=== PATIENT | male | born 1955 | race Caucasian/White ===

== ENCOUNTER → 2016-12-05 | Outpatient (CLI) | payer BC, OTHER ==
[~2016-12-05] MED LIST: ASCO500T16 PO; BCTROWC TOP; CALC600T9 PO; CALCTAB5 PO; LEVO50TA6 PO; LSX20 PO; LXP10 PO; MDRDP21 PO; MULTTAB5 PO; NRN100 PO; ONDA4TAB46 PO; PRT/40 PO; SDMC1 PO; VNCS150 PO; VNFI IV; [UNRECOGNIZED DRUG - CODE] PO
== END | disposition home or self-care (01) ==
LOC: C.LABSPEC 12:45
PROVIDERS: ATTEND Internal Medicine
DX: A04.7 Enterocolitis due to Clostridium difficile (principal)

== ENCOUNTER → 2016-12-12 | Outpatient (CLI) | payer BC ==
[~2016-12-12] MED LIST changes: -CALCTAB5 PO; -VNCS150 PO
[2016-12-12 18:54] LABS: ALT/SGPT 40 U/L (12-78); BLOOD UREA NITROGEN 13 mg/dl (7-18); BUN/CREATININE RATIO 12.2 (10-20); CALCIUM 8.6 mg/dl (8.5-10.1); CARBON DIOXIDE 27 mmol/L (21-32); CHLORIDE 92 mmol/L (98-107); GLUCOSE 91 mg/dl (70-99); MAGNESIUM 2.1 mg/dl (1.8-2.4); POTASSIUM 3.8 mmol/L (3.5-5.1); SODIUM 129 mmol/L (136-145)
[2016-12-12 19:04] LABS: ALB/GLOB RATIO 0.9 (0.9-2); ALKALINE PHOSPHATASE 80 U/L (45-117); AST/SGOT 27 U/L (15-37); FERRITIN 224.3 ng/ml (8.0-388.0)
[2016-12-16 05:33] LABS: IGA SERUM 418 mg/dL (81-463); TIS TRANS IGA 1 U/mL (<4)
== END | disposition home or self-care (01) ==
LOC: C.LAB 17:27
PROVIDERS: ATTEND Internal Medicine
DX: A04.7 Enterocolitis due to Clostridium difficile (principal); F41.9 Anxiety disorder, unspecified; E83.42 Hypomagnesemia; K50.90 Crohn's disease, unspecified, without complications; M85.80 Other specified disorders of bone density and structure, unspecified site

== ENCOUNTER → 2016-12-14 | Outpatient (CLI) | payer BC ==
--- NOTE | 2016-12-14 11:36 | DIAGNOSTIC IMAGING REPORT ---
CHEST 2 VIEWS ROUTINE HISTORY: Fever. COMPARISON: Chest 11/13/2016. FINDINGS: The lungs are clear. Cardiac silhouette is normal in size. No pleural effusions. No pneumothorax. IMPRESSION: No acute process. Electronically signed by: Maurisio Randall M.D. 12/14/2016 11:34 AM Dictated Date/Time: 12/14/2016 11:26 AM
== END | disposition home or self-care (01) ==
LOC: C.RAD1850 11:10
PROVIDERS: ATTEND Internal Medicine
DX: R50.9 Fever, unspecified (principal)

== ENCOUNTER → 2017-01-03 | Outpatient (CLI) | payer BC ==
[2017-01-03 17:31] LABS: BASO % 0.2 %; BASO ABS # 0.01 K/uL (0-0.2); COMPLETE YES; EOS % 3.1 %; HEMATOCRIT 35.6 % (42-52); IG% 0.2 %; LYMPH ABS # 1.52 K/uL (1.2-3.4); MEAN CELL VOLUME 82.6 fL (80-100); MEAN CORPUSCULAR HGB CONC 35.1 g/dl (32-36); MEAN PLATELET VOLUME 9.3 fL (7.4-10.4); MONO % 11.6 %; NEUT % 55.9 %; PLATELET COUNT 158 K/uL (130-400); RED BLOOD COUNT 4.31 M/uL (4.7-6.1); WHITE BLOOD COUNT 5.24 K/uL (4.8-10.8)
[2017-01-03 17:56] LABS: BLOOD UREA NITROGEN 16 mg/dl (7-18); BUN/CREATININE RATIO 16.2 (10-20); CALCIUM 8.7 mg/dl (8.5-10.1); CARBON DIOXIDE 28 mmol/L (21-32); CHLORIDE 101 mmol/L (98-107); CREATININE 0.97 mg/dl (0.60-1.40); GLUCOSE 89 mg/dl (70-99); SODIUM 138 mmol/L (136-145)
== END | disposition home or self-care (01) ==
LOC: C.LAB 16:38
PROVIDERS: ATTEND Internal Medicine
DX: R50.9 Fever, unspecified (principal)

== ENCOUNTER → 2017-01-18 | Day surgery (SDC) | payer BC ==
[2016-12-05 13:45] VITALS: Ht 175.3 cm; Wt 67.7 kg
[~2017-01-18] VITALS: Ht 175.3 cm; Wt 67.7 kg
[~2017-01-18] MED LIST changes: +FENTANYL CITRATE INJ 50 MCG/1 ML 2 ML VIAL ONE; +LIDOCAINE HCL 2% 2 ML VIAL (20MG/ML) ONE; +NALOXONE HCL 0.4 MG/1 ML VIAL/CARP ONE; +PROPOFOL IV EMULSION 10 MG/ML 20 ML VIAL IV ONE
--- NOTE | 2017-01-18 11:48 | Endo History and Physical ---
History & Physical Date of Service: Jan 18, 2017. Chief Complaint: dysphagia Referring Physician: Dr Sol History of Present Illness 61 yo CM who presents for EGD secondary to dysphagia Past Medical History Gastrointestinal Disorder, High Cholesterol Past Surgical History Hx Cardiac Surgery: No Hx Internal Defibrillator: No Hx Pacemaker: No Hx Abdominal Surgery: Yes (APPY, PARTIAL COLECTOMY WITH ILEOSTOMY, ILEOSTOMY REVERSAL) Hx of Implantable Prosthesis: No Hx Post-Op Nausea and Vomiting: No Hx Cancer Surgery: No Hx Thoracic Surgery: No Hx Orthopedic: No Hx Urinary Tract Surgery: No Family History IBD Social History Smoking Status: Never Smoker Hx Substance Use: No Hx Alcohol Use: Yes (1 DRINK/DAY) Allergies Coded Allergies: Metronidazole (Verified Allergy, Unknown, NUMBNESS - IV FORMULATION, ) Zolpidem (Verified Allergy, Unknown, UNKNOWN, 12/05/16) CAUSED HALLUCINATIONS Pork (Verified Adverse Reaction, Intermediate, GI SYMPTOMS, 12/05/16) Aspirin (Verified Adverse Reaction, Mild, Stomach pain, 12/05/16) Pork (Porcine) Protein (Unverified Adverse Reaction, Mild, GI SYMPTOMS, 10/11) Ibuprofen (Verified Adverse Reaction, Unknown, GI UPSET, 12/05/16) Current Medications Reported Home Medications Medications Dose Route/Sig Max Daily Dose Days Date Category Zofran (Ondansetron HCl) 4 Mg Tab 4 Mg PO TID PRN 12/05/16 Reported Calcium + D (Calcium Carbonate-Vitamin D) 1 Tab Tab 1 Tab PO QAM 12/05/16 Reported Escitalopram Oxalate 10 Mg Tab 10 Mg PO HS 11/13/16 Reported Slow Iron (Ferrous Sulfate Dried) 160 Mg Tab 160 Mg PO QPM 10/12/16 Reported Ascorbic Acid 500 Mg Tab 500 Mg PO NOON 04/16/16 Reported Centrum (Multiple Vitamins W/ Minerals) 1 Tab Tab 1 Tab PO NOON 04/16/16 Reported Vital Signs Weight (Kilograms): 67.73 Height (Feet): 5 Height (Inches): 9 Date Time Temp Pulse Resp B/P Pulse Ox O2 Delivery O2 Flow Rate FiO2 01/18/17 11:25 36.7 98 20 130/60 99 Room Air Physical Exam General Appearance: WD/WN, no apparent distress Respiratory/Chest: Auscultation: breath sounds normal Cardiovascular: Heart Auscultation: RRR Abdomen: Bowel Sounds: normal Inspection & Palpation: soft, non-distended, no tenderness, guarding & rebound Assessment and Plan Assessment: 61 yo CM who presents for EGD secondary to dysphagia Plan: Proceed with EGD.
--- NOTE | 2017-01-18 13:06 | Discharge Instructions ---
Endoscopy Patient Instructions Date / Procedure(s) Performed Jan 18, 2017. EGD Allergy Information Coded Allergies: Metronidazole (Verified Allergy, Unknown, NUMBNESS - IV FORMULATION, ) Zolpidem (Verified Allergy, Unknown, UNKNOWN, 12/05/16) CAUSED HALLUCINATIONS Pork (Verified Adverse Reaction, Intermediate, GI SYMPTOMS, 12/05/16) Aspirin (Verified Adverse Reaction, Mild, Stomach pain, 12/05/16) Pork (Porcine) Protein (Unverified Adverse Reaction, Mild, GI SYMPTOMS, 10/11) Ibuprofen (Verified Adverse Reaction, Unknown, GI UPSET, 12/05/16) Discharge Date / Findings Jan 18, 2017. Esophageal stenosis s/p dilation to 16.5 mm Medication Instructions 1) OK to resume all medications today as prescribed 2) Start Protonix 40mg by mouth each morning 1/2 hour prior to breakfast. Reported Home Medications Medications Dose Route/Sig Max Daily Dose Days Date Category Zofran (Ondansetron HCl) 4 Mg Tab 4 Mg PO TID PRN 12/05/16 Reported Calcium + D (Calcium Carbonate-Vitamin D) 1 Tab Tab 1 Tab PO QAM 12/05/16 Reported Escitalopram Oxalate 10 Mg Tab 10 Mg PO HS 11/13/16 Reported Slow Iron (Ferrous Sulfate Dried) 160 Mg Tab 160 Mg PO QPM 10/12/16 Reported Ascorbic Acid 500 Mg Tab 500 Mg PO NOON 04/16/16 Reported Centrum (Multiple Vitamins W/ Minerals) 1 Tab Tab 1 Tab PO NOON 04/16/16 Reported Provider Instructions Activity Restrictions - No exercising or heavy lifting for 24 hours. - Do not drink alcohol the day of the procedure. - Do not drive a car or operate machinery until the day after the procedure. - Do not make any important decisions or sign important papers in 24 hours after the procedure. Following Day: - Return to full activity which may include returning to work/school. Diet Start your diet with liquids and light foods (jello, soup, juice, toast). Then eat your usual diet if not nauseated. Treatment For Common After Affects For mild abdominal pain, bloating, or excessive gas: - Rest - Eat lightly - Lie on right side Follow-Up Information Follow-up with Dr Sol as scheduled Anesthesia Information What You Should Know You have had a procedure that required some medicine to reduce anxiety and discomfort. This treatment is called moderate sedation. After receiving the treatment, you may be sleepy, but you will be able to breathe on your own. The effects of the treatment may last for several hours. Follow these instructions along with Activity/Diet recommendations noted above: * Do NOT do anything where dizziness or clumsiness would be dangerous. * Rest quietly at home today, then you can be up and about tomorrow. * Have a responsible person stay with you the rest of today. * You may have had an I.V. today. If so, you may take the dressing off later today. Recommendations Call your doctor if: * Trouble breathing * Continuous vomiting for more than 24 hours * Temperature above 101 degrees * Severe abdominal pain or bloating * Pain not relieved by pain medicine ordered * There is increased drainage or redness from any incision * A large amount of rectal bleeding greater than 2-3 tablespoons. (If you had a polyp/s removed or have hemorrhoids, a small amount of blood - from the rectum is to be expected.) * You have any unanswered questions or concerns. IN THE EVENT OF A SERIOUS EMERGENCY, GO TO THE NEAREST EMERGENCY ROOM Your discharge instructions were prepared by provider Niko Martin. Patient Instructions Signature Page Ha Huitron Patient (or Guardian) Signature/Date: I have read and understand the instructions given to me by my caregivers. Caregiver/RN/Doctor Signature/Date: The above-named patient and/or guardian has received patient instructions on this date. + Original Patient Signature Page (only) stays with chart. Please make copy for patient.
--- NOTE | 2017-01-18 13:10 | GI REPORT ---
Procedure Date: 01/18/2017 12:26 PM Procedure: Upper GI endoscopy Indications: Dysphagia Medicines: Monitored Anesthesia Care Complications: No immediate complications. Estimated Blood Loss: Estimated blood loss: none. Procedure: Pre-Anesthesia Assessment: - Prior to the procedure, a History and Physical was performed, and patient medications and allergies were reviewed. The patient's tolerance of previous anesthesia was also reviewed. The risks and benefits of the procedure and the sedation options and risks were discussed with the patient. All questions were answered, and informed consent was obtained. Prior Anticoagulants: The patient has taken no previous anticoagulant or antiplatelet agents. ASA Grade Assessment: II - A patient with mild systemic disease. After reviewing the risks and benefits, the patient was deemed in satisfactory condition to undergo the procedure. After obtaining informed consent, the endoscope was passed under direct vision. Throughout the procedure, the patient's blood pressure, pulse, and oxygen saturations were monitored continuously. The scope was introduced through the mouth, and advanced to the second part of duodenum. The upper GI endoscopy was accomplished without difficulty. The patient tolerated the procedure well. Findings: One moderate benign-appearing, intrinsic stenosis was found. This measured 1.2 cm (inner diameter) x 1 cm (in length) and was traversed. A TTS dilator was passed through the scope. Dilation with a 15-16.5-18 mm balloon (to a maximum balloon size of 16.5 mm) dilator was performed. The dilation site was examined and showed moderate improvement in luminal narrowing. The stomach was normal. The examined duodenum was normal. Impression: - Benign-appearing esophageal stenosis. Dilated. - Normal stomach. - Normal examined duodenum. - No specimens collected. Recommendation: - Resume previous diet. - Continue present medications. - Repeat the upper endoscopy PRN for retreatment. - Return to primary care physician as previously scheduled. Niko Martin DO 01/18/2017 1:09:53 PM This report has been signed electronically. Note Initiated On: 01/18/2017 12:26 PM I attest to the content of the Intraoperative Record and orders documented therein, exceptions below
[2017-01-18 13:30] VITALS: BP 109/54; PULSE 81; O2SAT 98
--- NOTE | 2017-01-18 15:18 | Anesthesiology Progress Note ---
Anesthesia Post Op Note Date & Time Jan 18, 2017 at 15:18 Vital Signs Pain Intensity: 0 Vital Signs Past 12 Hours Date Time Temp Pulse Resp B/P Pulse Ox O2 Delivery O2 Flow Rate FiO2 01/18/17 13:30 81 16 109/54 98 Room Air 01/18/17 13:15 98 16 114/58 98 Room Air 01/18/17 13:00 98 16 119/60 98 Room Air 01/18/17 11:25 36.7 98 20 130/60 99 Room Air Notes Mental Status: alert / awake / arousable, participated in evaluation Pt Amnestic to Procedure: Yes Nausea / Vomiting: adequately controlled Pain: adequately controlled Airway Patency, RR, SpO2: stable & adequate BP & HR: stable & adequate Hydration State: stable & adequate Anesthetic Complications: no major complications apparent
== END | disposition home or self-care (01) ==
LOC: C.GI 10:51
PROVIDERS: ATTEND Internal Medicine
DX: K22.2 Esophageal obstruction (principal); E78.5 Hyperlipidemia, unspecified; Z90.49 Acquired absence of other specified parts of digestive tract; Z93.2 Ileostomy status; Z83.79 Family history of other diseases of the digestive system; Z88.5 Allergy status to narcotic agent; Z88.8 Allergy status to other drugs, medicaments and biological substances

== ENCOUNTER → 2017-01-29 | Outpatient (CLI) | payer BC ==
[~2017-01-29] MED LIST changes: -FENTANYL CITRATE INJ 50 MCG/1 ML 2 ML VIAL ONE; -LIDOCAINE HCL 2% 2 ML VIAL (20MG/ML) ONE; -NALOXONE HCL 0.4 MG/1 ML VIAL/CARP ONE; -PROPOFOL IV EMULSION 10 MG/ML 20 ML VIAL IV ONE
--- NOTE | 2017-01-29 15:29 | DIAGNOSTIC IMAGING REPORT ---
CT SCAN OF THE CHEST WITHOUT IV CONTRAST CLINICAL HISTORY: Pulmonary nodule follow-up. COMPARISON STUDY: Chest CT dated 12/06/2015. Chest x-ray dated 11/16/2015 and 11/23/2015. Abdominal CT dated 11/16/2015. TECHNIQUE: CT scan of the thorax was performed from the thoracic inlet to the upper abdomen. Images are reviewed in the axial, sagittal, and coronal planes. IV contrast was not administered for this examination. CT DOSE: 236.14 mGycm FINDINGS: Thyroid: Imaged portions of the thyroid gland are normal in size and attenuation. Thoracic aorta: There are scattered foci of atherosclerotic calcification in the thoracic aorta, which is normal in caliber and demonstrates standard 3-vessel arch anatomy. Heart: The heart is normal in size and without pericardial effusion. There are coronary artery calcifications. There is diminished attenuation of the cardiac blood pool as compared to the myocardium suggesting anemia. The pulmonary trunk is normal in caliber. Lungs and pleural spaces: There is mild apical scarring. No airspace consolidation or pleural effusion is seen. Scattered calcified granulomas are identified. 2 mm nodules at the left lung base seen on 12/06/2015 are no longer identified and were likely on an inflammatory basis. A 2 mm right upper lobe nodule is seen on image #[id number]. A 2 mm right middle lobe nodule is seen on image #[id number]. No new pulmonary nodules are identified. The trachea and central airways are clear. Mediastinum: There is no mediastinal lymphadenopathy. [place]: Clear. Axillae: There is no axillary lymphadenopathy. Upper abdomen: Partially visualized upper abdominal viscera is within normal limits. Skeletal structures: The skeletal structures are osteopenic. Mild degenerative changes are noted throughout the thoracic spine. There are healed right-sided rib fractures. No lytic or blastic bony lesions are seen. IMPRESSION: 1. There is no airspace consolidation or pleural effusion. 2. Scattered low suspicion pulmonary nodules are again seen. At least 2 of the nodules at the left lung base seen on 12/06/2015 have resolved end were likely on an inflammatory basis. 1 additional precautionary follow-up examination is recommended in one years time to document 2 years of stability. Electronically signed by: Donald Lewis M.D. 01/29/2017 3:28 PM Dictated Date/Time: 01/29/2017 3:11 PM
== END | disposition home or self-care (01) ==
LOC: C.CTS 14:53
PROVIDERS: ATTEND Internal Medicine
DX: R91.1 Solitary pulmonary nodule (principal)

== ENCOUNTER 2017-04-02 17:55 | Emergency (ER) | payer BC ==
[~2017-04-02] VITALS: Ht 175.3 cm; Wt 70.0 kg
[~2017-04-02 17:55] MED LIST changes: -ASCO500T16 PO; -BCTROWC TOP; -CALC600T9 PO; -LEVO50TA6 PO; -LSX20 PO; -LXP10 PO; -MDRDP21 PO; -MULTTAB5 PO; -NRN100 PO; -ONDA4TAB46 PO; -PRT/40 PO; -SDMC1 PO; -VNFI IV
[2017-04-02 17:57] VITALS: TEMP 36.5; Ht 175.3 cm; Wt 70.0 kg
[2017-04-02] MEDS ORDERED: SODIUM CHLORIDE 0.9% 1000ML 1,000 ML IV ONE (18:45)
[2017-04-02 19:18] LABS: BASO % 0.2 %; BASO ABS # 0.01 K/uL (0-0.2); COMPLETE YES; EOS % 2.5 %; HEMATOCRIT 33.4 % (42-52); IG% 0.2 %; LYMPH % 28.3 %; LYMPH ABS # 1.24 K/uL (1.2-3.4); MEAN CELL VOLUME 82.9 fL (80-100); MEAN CORPUSCULAR HEMOGLOBIN 29.3 pg (25-34); MEAN CORPUSCULAR HGB CONC 35.3 g/dl (32-36); MEAN PLATELET VOLUME 8.7 fL (7.4-10.4); MONO % 13.9 %; NEUT % 54.9 %; PLATELET COUNT 160 K/uL (130-400); RED BLOOD COUNT 4.03 M/uL (4.7-6.1); WHITE BLOOD COUNT 4.38 K/uL (4.8-10.8)
[2017-04-02 19:31] LABS: URINE APPEARANCE CLEAR (CLEAR); URINE BILIRUBIN NEG (NEG); URINE COLOR YELLOW; URINE EPITHELIAL CELL AUTO 0-5 /lpf (0-5); URINE NITRITE NEG (NEG); URINE SPECIFIC GRAVITY 1.021 (1.000-1.030); UROBILINOGEN NEG (NEG)
[2017-04-02 19:37] LABS: BUN/CREATININE RATIO 18.6 (10-20); CALCIUM 8.7 mg/dl (8.5-10.1); CREATININE 0.82 mg/dl (0.60-1.40); MAGNESIUM 2.2 mg/dl (1.8-2.4); POTASSIUM 4.1 mmol/L (3.5-5.1)
[2017-04-02 19:38] LABS: MANUAL MICROSCOPIC REQUIRED? NO; REVIEW REQ? NO
[2017-04-02 19:46] LABS: PHOSPHORUS 3.5 mg/dl (2.5-4.9); THYROID STIMULATING HORMONE 1.84 uIu/ml (0.300-4.500)
[2017-04-02 20:45] VITALS: BP 104/57; PULSE 79; O2SAT 98
--- NOTE | 2017-04-03 00:12 | EMERGENCY ROOM VISIT NOTE ---
ED Visit Note First contact with patient: 18:13 Chief Complaint: Involuntary muscle contractions and feeling tired. History of Present Illness: Mr. Huitron is a 61-year-old white male who ambulates into the ED accompanied by his complaining of involuntary muscle contractions of the right lower leg and abdomen and feeling tired and fatigued for the last couple of weeks. Historically patient reports he has a history of hyponatremia and Crohn's disease. Patient reports over the last 2-3 weeks he reports that he has been getting muscle cramping sensations that start in the anterior aspect to the mid/lower right thigh and slowly moves up to the lower abdomen. After the initial cramping he reports he has pain in this area for approximately 10 minutes and then the cramping and the pain resolved. His reports that when he has this cramping sensation at night he shakes in bed but does not wake up. Currently he is pain-free and is not having any cramping. He has not identified any aggravating or alleviating factors related to the cramping. He has not taken any medications for cramping prior to arrival at the hospital. Associated with his cramping he reports he has been having increasing fatigue and over the last 2 days it has been the most severe and he reports he slept most of the last 2 days. He denies fevers, chills, sweats, skin eruptions, skin color changes, headache, dizziness, lightheadedness, upper respiratory tract symptoms, cough, wheezing, shortness of breath, chest pain, palpitations, orthopnea, dependent edema, previous clots, claudication, cramping, recent surgery/inactivity/extended travel, decreased appetite, weight loss, nausea/vomiting, diarrhea, constipation , rectal bleeding, black/tarry stools, urinary symptoms, hematuria, extremity weakness/numbness/tingling. Review of Systems: As noted above in history of present illness. All body systems were reviewed and found to be negative as noted above. Past Medical History: GERD, kidney stones, rectal abscess, status post ileectomy and appendectomy. Current Medications: Medications Dose Route/Sig Max Daily Dose Days Date Category Levothyroxine Sodium 50 Mcg Tab 50 Mcg PO DAILY 04/02/17 Reported Pantoprazole Sodium (Pantoprazole) 40 Mg Tab 40 Mg PO DAILY 04/02/17 Reported Zofran (Ondansetron HCl) 4 Mg Tab 4 Mg PO TID PRN 12/05/16 Reported Calcium + D (Calcium Carbonate-Vitamin D) 1 Tab Tab 1 Tab PO QAM 12/05/16 Reported Escitalopram Oxalate 10 Mg Tab 10 Mg PO HS 11/13/16 Reported Slow Iron (Ferrous Sulfate Dried) 160 Mg Tab 160 Mg PO QPM 10/12/16 Reported Ascorbic Acid 500 Mg Tab 500 Mg PO NOON 04/16/16 Reported Centrum (Multiple Vitamins W/ Minerals) 1 Tab Tab 1 Tab PO NOON 04/16/16 Reported Allergies to Medications: Aspirin, ibuprofen, metronidazole, zolpidem. Social History: Patient is not currently employed; he lives with his and feels safe in his home environment; he denies tobacco use and admits to social alcohol use. Physical Examination: Vital Signs: Date Time Temp Pulse Resp B/P Pulse Ox O2 Delivery O2 Flow Rate FiO2 04/02/17 20:45 79 18 104/57 98 04/02/17 19:57 84 18 107/46 100 Room Air 04/02/17 17:57 36.5 96 16 104/64 97 Room Air GENERAL: 61-year-old male in no acute distress, tired appearing, nontoxic- appearing, afebrile and hemodynamically stable. NEUROLOGICAL: Awake, alert and oriented to person, place and time. Answering questions appropriately and following commands. Normal gait. Good hand eye coordination. No focal motor or sensory deficits. SKIN: Warm, dry and pink. No soft tissue eruptions or trauma noted. HEENT: Atraumatic and normocephalic. PERRLA. Sclera white and conjunctiva pink. No drainage from naris. Oral cavity moist and pink. Pharynx is nonerythematous or edematous. Speech normal. No lymphadenopathy. Trachea midline. No jugular venous distention. BACK: No tenderness over the bony spine. No CVA tenderness. THORAX: Lungs sounds are clear to auscultation and equal bilaterally with symmetrical chest wall. No wheezing, rales or rhonchi. No crepitus, tenderness , subcutaneous air or deformities noted. HEART: Regular rate and rhythm. No gallops, rubs or murmurs are appreciated. ABDOMEN: Flat and soft with mild tenderness over his ileostomy site on the right mid abdomen. Positive bowel sounds in all quadrants. No guarding, rigidity or organomegaly. EXTREMITIES: Moves all extremities well on command and with purpose. All distal neurovascular statuses are intact and equal bilaterally. No calf tenderness or cords. ED Course: Patient is assessed as noted above. Laboratory Testing: Test 04/02/17 18:55 04/02/17 19:00 04/02/17 19:10 Range/Units White Blood Count 4.38 4.8-10.8 K/uL Red Blood Count 4.03 4.7-6.1 M/uL Hemoglobin 11.8 14.0-18.0 g/dL Hematocrit 33.4 42-52 % Mean Corpuscular Volume 82.9 80-100 fL Mean Corpuscular Hemoglobin 29.3 25-34 pg Mean Corpuscular Hemoglobin Concent 35.3 32-36 g/dl Platelet Count 160 130-400 K/uL Mean Platelet Volume 8.7 7.4-10.4 fL Neutrophils (%) (Auto) 54.9 % Lymphocytes (%) (Auto) 28.3 % Monocytes (%) (Auto) 13.9 % Eosinophils (%) (Auto) 2.5 % Basophils (%) (Auto) 0.2 % Neutrophils # (Auto) 2.40 1.4-6.5 K/uL Lymphocytes # (Auto) 1.24 1.2-3.4 K/uL Monocytes # (Auto) 0.61 0.11-0.59 K/uL Eosinophils # (Auto) 0.11 0-0.5 K/uL Basophils # (Auto) 0.01 0-0.2 K/uL RDW Standard Deviation 40.0 36.4-46.3 fL RDW Coefficient of Variation 13.1 11.5-14.5 % Immature Granulocyte % (Auto) 0.2 % Immature Granulocyte # (Auto) 0.01 0.00-0.02 K/uL Sodium Level 133 136-145 mmol/L Potassium Level 4.1 3.5-5.1 mmol/L Chloride Level 99 98-107 mmol/L Carbon Dioxide Level 30 21-32 mmol/L Anion Gap 4.0 3-11 mmol/L Blood Urea Nitrogen 15 7-18 mg/dl Creatinine 0.82 0.60-1.40 mg/dl Est Creatinine Clear Calc Drug Dose 93.7 ml/min Estimated GFR () 110.6 Estimated GFR (Non- 95.4 BUN/Creatinine Ratio 18.6 10-20 Random Glucose 77 70-99 mg/dl Calcium Level 8.7 8.5-10.1 mg/dl Phosphorus Level 3.5 2.5-4.9 mg/dl Magnesium Level 2.2 1.8-2.4 mg/dl Total Bilirubin 1.0 0.2-1 mg/dl Direct Bilirubin 0.2 0-0.2 mg/dl Aspartate Amino Transf (AST/SGOT) 28 15-37 U/L Alanine Aminotransferase (ALT/SGPT) 34 12-78 U/L Alkaline Phosphatase 56 45-117 U/L Total Protein 6.9 6.4-8.2 gm/dl Albumin 3.6 3.4-5.0 gm/dl Lipase 271 73-393 U/L Thyroid Stimulating Hormone (TSH) 1.840 0.300-4.500 uIu/ml Monoscreen NEG NEG Bedside Troponin I 0.000 0-0.045 ng/ml Urine Color YELLOW Urine Appearance CLEAR CLEAR Urine pH 6.0 4.5-7.5 Urine Specific Holcomb 1.021 1.000-1.030 Urine Protein 2+ NEG Urine Glucose (UA) NEG NEG Urine Ketones NEG NEG Urine Occult Blood 2+ NEG Urine Nitrite NEG NEG Urine Bilirubin NEG NEG Urine Urobilinogen NEG NEG Urine Leukocyte Esterase NEG NEG Urine WBC (Auto) 1-5 0-5 /hpf Urine RBC (Auto) 0-4 0-4 /hpf Urine Hyaline Casts (Auto) 0 0-5 /lpf Urine Epithelial Cells (Auto) 0-5 0-5 /lpf Urine Bacteria (Auto) NEG NEG EKG: Was read by myself and reviewed with Dr. Vo; shows normal sinus rhythm with ventricular rate of 78 bpm. Normal axis, intervals and complexes. No acute ST changes indicating ischemia, injury or infarction. This was compared to previous from October 2015 and no acute changes were noted. Patient was hydrated with normal saline. Patient was reassessed multiple times during his stay in the emergency department. Patient's case was reviewed with Dr. Vo; we agreed on diagnostic approach, treatment, disposition and plan. Patient was educated about tonight's findings and instructed on his treatment plan; he verbalizes understanding and agreement with this plan. Clinical Impression: Muscle cramping. Fatigued. Decision-Making: Initially my differential diagnosis I considered musculoskeletal disorder, mononucleosis, electrolyte abnormality, thyroid dysfunction, acute coronary syndrome and other causes. Disposition: Patient was reassessed prior to departure and subsequently reported he was pain-free but he was still feeling tired and fatigued. Plan: Patient was encouraged to continue his current prescriptions and therapies as prescribed by his PCP. Patient was encouraged to contact his PCP tomorrow morning and inform them of today's ED visit and to keep his upcoming appointment with his PCP. Patient was encouraged return the ED for worsening cramping, worsening fatigue, fevers or any new/concerning symptoms.
[2017-08-02] MEDS ORDERED: ONDA4TAB46 PO (13:45)
[2017-08-02] MEDS ORDERED: CALC600T9 PO (13:45)
[2017-08-02] MEDS ORDERED: PANT40TA2 PO (18:31)
[2017-08-06] MEDS ORDERED: SDMC1 PO (12:09)
[2017-08-06] MEDS ORDERED: VNFI IV (12:09)
[2017-08-06] MEDS ORDERED: LSX20 PO (12:09)
== END 2017-04-02 20:45 | disposition home or self-care (01) ==
LOC: C.EDB 17:56 → C.EDC 20:45
DX: M62.838 Other muscle spasm (principal); R53.83 Other fatigue; K50.90 Crohn's disease, unspecified, without complications; K21.9 Gastro-esophageal reflux disease without esophagitis; Z87.442 Personal history of urinary calculi; Z79.899 Other long term (current) drug therapy

== ENCOUNTER → 2017-04-24 | Outpatient (CLI) | payer BC ==
[~2017-04-24] MED LIST changes: +ASCO500T16 PO; +BCTROWC TOP; +CALC600T9 PO; +LEVO50TA6 PO; +LSX20 PO; +LXP10 PO; +MDRDP21 PO; +MULTTAB5 PO; +NRN100 PO; +ONDA4TAB46 PO; +PANT40TA2 PO; +SDMC1 PO; +VNFI IV
== END | disposition home or self-care (01) ==
LOC: C.LAB1850 15:45
PROVIDERS: ATTEND Physician Assistant
DX: G25.81 Restless legs syndrome (principal)

== ENCOUNTER → 2017-05-14 | Outpatient (CLI) | payer BC ==
[2017-05-14 12:32] LABS: BASO % 0.4 %; BASO ABS # 0.02 K/uL (0-0.2); COMPLETE YES; EOS % 3.9 %; LYMPH % 21.2 %; LYMPH ABS # 0.98 K/uL (1.2-3.4); MEAN CELL VOLUME 82.2 fL (80-100); MEAN CORPUSCULAR HEMOGLOBIN 29.4 pg (25-34); MEAN CORPUSCULAR HGB CONC 35.8 g/dl (32-36); MEAN PLATELET VOLUME 8.7 fL (7.4-10.4); MONO % 15.6 %; NEUT % 58.9 %; PLATELET COUNT 159 K/uL (130-400); RED BLOOD COUNT 3.77 M/uL (4.7-6.1); WHITE BLOOD COUNT 4.62 K/uL (4.8-10.8)
[2017-05-14 12:56] LABS: BLOOD UREA NITROGEN 13 mg/dl (7-18); BUN/CREATININE RATIO 17.2 (10-20); CALCIUM 8.6 mg/dl (8.5-10.1); CARBON DIOXIDE 28 mmol/L (21-32); CHLORIDE 96 mmol/L (98-107); CREATININE 0.77 mg/dl (0.60-1.40); GLUCOSE 100 mg/dl (70-99); POTASSIUM 4.5 mmol/L (3.5-5.1); SODIUM 130 mmol/L (136-145)
[2017-05-14 14:13] LABS: LYME DISEASE AB IGG NEG (NEG)
[2017-05-14 14:23] LABS: LYME DISEASE AB IGM NEG (NEG)
== END | disposition home or self-care (01) ==
LOC: C.LAB1850 10:56
PROVIDERS: ATTEND Physician Assistant
DX: D64.9 Anemia, unspecified (principal); E87.1 Hypo-osmolality and hyponatremia; E03.9 Hypothyroidism, unspecified; M25.50 Pain in unspecified joint

== ENCOUNTER 2017-05-15 21:28 | Emergency (ER) | payer BC ==
[~2017-05-15] VITALS: Ht 175.3 cm; Wt 71.8 kg
[~2017-05-15 21:28] MED LIST changes: -ASCO500T16 PO; -BCTROWC TOP; -CALC600T9 PO; -LEVO50TA6 PO; -LSX20 PO; -LXP10 PO; -MDRDP21 PO; -MULTTAB5 PO; -NRN100 PO; -ONDA4TAB46 PO; -PANT40TA2 PO; -SDMC1 PO; -VNFI IV
[2017-05-15 21:41] VITALS: TEMP 36.7; Ht 175.3 cm; Wt 71.8 kg
[2017-05-15] MEDS ORDERED: SODIUM CHLORIDE 0.9% 1000ML 1,000 ML IV STA (21:58)
[2017-05-15] MEDS ORDERED: SODIUM CHLORIDE 0.9% 1000ML 500 ML IV STA (21:58)
[2017-05-15 22:33] LABS: COMPLETE YES; HEMATOCRIT 33.3 % (42-52); LYMPH % 14.4 %; LYMPH ABS # 0.34 K/uL (1.2-3.4); MEAN CELL VOLUME 80.8 fL (80-100); MEAN CORPUSCULAR HEMOGLOBIN 28.9 pg (25-34); MEAN CORPUSCULAR HGB CONC 35.7 g/dl (32-36); MEAN PLATELET VOLUME 8.6 fL (7.4-10.4); MONO % 2.5 %; NEUT % 83.1 %; PLATELET COUNT 172 K/uL (130-400); RED BLOOD COUNT 4.12 M/uL (4.7-6.1); WHITE BLOOD COUNT 2.36 K/uL (4.8-10.8)
[2017-05-15 22:39] LABS: URINE APPEARANCE CLEAR (CLEAR); URINE BILIRUBIN NEG (NEG); URINE COLOR YELLOW; URINE NITRITE NEG (NEG); URINE PH 5.5 (4.5-7.5); UROBILINOGEN NEG (NEG); ZZUR CULT IF INDIC CLEAN CATCH NO
[2017-05-15 22:40] LABS: MANUAL MICROSCOPIC REQUIRED? NO; REVIEW REQ? NO
[2017-05-15 22:48] LABS: BUN/CREATININE RATIO 12.6 (10-20); CREATININE 1.2 mg/dl (0.60-1.40); POTASSIUM 4.3 mmol/L (3.5-5.1)
[2017-05-15 22:49] LABS: CALCIUM 8.8 mg/dl (8.5-10.1)
[2017-05-15] MEDS ORDERED: SODIUM CHLORIDE 0.9% 500ML 500 ML IV STA (22:56)
--- NOTE | 2017-05-15 23:03 | DIAGNOSTIC IMAGING REPORT ---
CT SCAN OF THE ABDOMEN AND PELVIS WITHOUT CONTRAST CLINICAL HISTORY: Flank pain hematuria COMPARISON STUDY: 11/16/2015 TECHNIQUE: CT scan of the abdomen and pelvis was performed from the lung bases to the proximal femurs. Images are reviewed in the axial, sagittal, and coronal planes. IV contrast was not administered for this examination. CT DOSE: 502.72 mGy.cm FINDINGS: Lower chest: There is a small left pleural effusion. There are left basilar atelectatic changes. Liver: The unenhanced liver is normal in size, contour, and attenuation. There is no intrahepatic biliary ductal dilatation. Gallbladder: Cholelithiasis Spleen: Normal in size and attenuation. Pancreas: Unremarkable. Adrenal glands: Unremarkable. Kidneys: No renal calculi are visualized. There is no significant hydronephrosis. No ureteral or bladder calculi are visualized. Bowel: There are no transition zones indicate bowel obstruction. There is sigmoid diverticulosis. There are no acute peridiverticular inflammatory changes. There are postsurgical changes of a right hemicolectomy. Peritoneum: There is trace free pelvic fluid. No free intraperitoneal air is visualized. Vasculature: The abdominal aorta is normal in course and caliber. Adenopathy: There are a few minimally prominent mesenteric lymph nodes, similar to the preceding study. Pelvic viscera: The bladder, and pelvic viscera are unremarkable. Skeletal structures: No destructive osseous lesions are seen. IMPRESSION: 1. Small left pleural effusion 2. Postsurgical changes right hemicolectomy 3. Cholelithiasis 4. No evidence of bowel obstruction. No evidence of free air 5. No renal, ureteral, or bladder calculi identified 6. Mesenteric lymph nodes at the upper limits of normal in size. These remain unchanged from October 2015 Electronically signed by: Jonathon Salazar M.D. 05/15/2017 11:02 PM Dictated Date/Time: 05/15/2017 10:57 PM
[2017-05-15] MEDS ORDERED: MDRDP21 PO (23:18)
[2017-05-15] MEDS ORDERED: NRN100 PO (23:18)
[2017-05-16 00:37] VITALS: BP 125/68; PULSE 89; O2SAT 98
--- NOTE | 2017-05-16 01:18 | EMERGENCY ROOM VISIT NOTE ---
History Report prepared by Esdras: Cuauhtemoc Richardson Under the Supervision of: Dr. Donald Denny M.D. First contact with patient: 21:49 Chief Complaint: URINARY SYMPTOMS Stated Complaint: URINARY FREQUENCY Nursing Triage Summary: Pt seen by PCP Saturday for sciatic pain. Pt ook first dose of Prednisone, felt dizzy all day. "Now I am urinating about every 10 minutes". Pt reports frequency, and urgency, head and back pain. Pt's states "he has a history of low Sodium". History of Present Illness The patient is a 61 year old male who presents to the Emergency Room with complaints of persistent urinary frequency throughout the day. The patient states that he has been urinating every 10-20 minutes. The patient denies dysuria. He states that he is voiding a large amount of urine each time. The patient was also feeling dizzy and weak today. He also has a headache and some left lower back pain. The patient has an occasional cough. He denies fevers, congestion, or nausea. The patient saw his PCP yesterday for sciatic pain in the left hip. He was started on Prednisone today. 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 He also has a history of hyponatremia. The patient has history of kidney stones but notes that it does not feel like he has one currently. The patient started Gabapentin two weeks ago. He also takes Levothyroxine, Lexapro, and Prilosec. Source of History: patient Onset: today Position: other (urinary) Quality: other (frequency) Timing: other (persistent) Associated Symptoms: + headache, + cough, + back pain, + weakness, No fevers , No nausea Review of Systems See HPI for pertinent positives & negatives. A total of 10 systems reviewed and were otherwise negative. Past Medical & Surgical Medical Problems: (1) Crohn's disease (2) GERD (gastroesophageal reflux disease) (3) History of ileectomy (4) Kidney stones (5) Rectal abscess Surgical Problems: (1) History of appendectomy Family History FHx: diabetes FHx: gallbladder disease FHx: hypertension FHx: kidney disease Social History Smoking Status: Never Smoker Alcohol Use: occasionally Drug Use: none Marital Status: Housing Status: lives with significant other Occupation Status: retired Current/Historical Medications Scheduled Ascorbic Acid (Ascorbic Acid), 500 MG PO NOON Calcium Carbonate-Vitamin D (Calcium + D), 1 TAB PO QAM Escitalopram Oxalate (Escitalopram Oxalate), 10 MG PO HS Gabapentin (Gabapentin), 100 MG PO DAILY Levothyroxine Sodium (Levothyroxine Sodium), 50 MCG PO DAILY Methylprednisolone (Methylprednisolone Dose P), PO UD Multiple Vitamins W/ Minerals (Centrum), 1 TAB PO NOON Pantoprazole (Pantoprazole Sodium), 40 MG PO DAILY Scheduled PRN Ondansetron Hcl (Zofran), 4 MG PO TID PRN for Nausea Allergies Coded Allergies: Metronidazole (Verified Allergy, Unknown, NUMBNESS - IV FORMULATION, ) Zolpidem (Verified Allergy, Unknown, UNKNOWN, 05/15/17) CAUSED HALLUCINATIONS Pork (Verified Adverse Reaction, Intermediate, GI SYMPTOMS, 05/15/17) Aspirin (Verified Adverse Reaction, Mild, Stomach pain, 05/15/17) Pork (Porcine) Protein (Unverified Adverse Reaction, Mild, GI SYMPTOMS, ) Ibuprofen (Verified Adverse Reaction, Unknown, GI UPSET, 05/15/17) Physical Exam Vital Signs Date Time Temp Pulse Resp B/P (MAP) Pulse Ox O2 Delivery O2 Flow Rate FiO2 05/16/17 00:37 89 16 125/68 98 Room Air 05/15/17 23:13 95 16 122/59 98 Room Air 05/15/17 21:41 36.7 102 18 140/68 97 Room Air Physical Exam GENERAL: Patient is in no acute distress. HEENT: No acute trauma, normocephalic atraumatic, mucous membranes moist, no nasal congestion, no scleral icterus. NECK: No stridor, no adenopathy, no meningismus, trachea is midline. LUNGS: Clear to auscultation bilaterally, no wheeze, no rhonchi, breath sounds equal. HEART: Without murmurs gallops or rubs, regular rate and rhythm. ABDOMEN: Soft, nontender, bowel sounds positive, no hernias, no peritonitis. EXTREMITIES: No cyanosis, mild bilateral pedal edema, full range of motion of all the joints without pain or difficulty, no signs for acute trauma. NEUROLOGIC: Oriented x 3, no acute motor or sensory deficits, no focal weakness. SKIN: No rash, no jaundice, no diaphoresis. Medical Decision & Procedures ER Provider Diagnostic Interpretation: Radiology results as stated below per my review and radiologist interpretation: CT SCAN OF THE ABDOMEN AND PELVIS WITHOUT CONTRAST CLINICAL HISTORY: Flank pain hematuria COMPARISON STUDY: 11/16/2015 TECHNIQUE: CT scan of the abdomen and pelvis was performed from the lung bases to the proximal femurs. Images are reviewed in the axial, sagittal, and coronal planes. IV contrast was not administered for this examination. CT DOSE: 502.72 mGy.cm FINDINGS: Lower chest: There is a small left pleural effusion. There are left basilar atelectatic changes. Liver: The unenhanced liver is normal in size, contour, and attenuation. There is no intrahepatic biliary ductal dilatation. Gallbladder: Cholelithiasis Spleen: Normal in size and attenuation. Pancreas: Unremarkable. Adrenal glands: Unremarkable. Kidneys: No renal calculi are visualized. There is no significant hydronephrosis. No ureteral or bladder calculi are visualized. Bowel: There are no transition zones indicate bowel obstruction. There is sigmoid diverticulosis. There are no acute peridiverticular inflammatory changes. There are postsurgical changes of a right hemicolectomy. Peritoneum: There is trace free pelvic fluid. No free intraperitoneal air is visualized. Vasculature: The abdominal aorta is normal in course and caliber. Adenopathy: There are a few minimally prominent mesenteric lymph nodes, similar to the preceding study. Pelvic viscera: The bladder, and pelvic viscera are unremarkable. Skeletal structures: No destructive osseous lesions are seen. IMPRESSION: 1. Small left pleural effusion 2. Postsurgical changes right hemicolectomy 3. Cholelithiasis 4. No evidence of bowel obstruction. No evidence of free air 5. No renal, ureteral, or bladder calculi identified 6. Mesenteric lymph nodes at the upper limits of normal in size. These remain unchanged from October 2015 Electronically signed by: Jonathon Salazar M.D. 05/15/2017 11:02 PM Dictated Date/Time: 05/15/2017 10:57 PM Laboratory Results 05/15/17 22:20 Red Blood Count 4.12, Mean Corpuscular Volume 80.8, Mean Corpuscular Hemoglobin 28.9, Mean Corpuscular Hemoglobin Concent 35.7, Mean Platelet Volume 8.6, Neutrophils (%) (Auto) 83.1, Lymphocytes (%) (Auto) 14.4, Monocytes (%) (Auto) 2.5, Eosinophils (%) (Auto) 0.0, Basophils (%) (Auto) 0.0, Neutrophils # (Auto) 1.96, Lymphocytes # (Auto) 0.34, Monocytes # (Auto) 0.06, Eosinophils # (Auto) 0.00, Basophils # (Auto) 0.00 05/15/17 22:20 Test 05/15/17 00:00 05/15/17 22:20 Urine Color YELLOW Urine Appearance CLEAR (CLEAR) Urine pH 5.5 (4.5-7.5) Urine Specific [place] 1.010 (1.000-1.030) Urine Protein NEG (NEG) Urine Glucose (UA) NEG (NEG) Urine Ketones NEG (NEG) Urine Occult Blood 2+ (NEG) Urine Nitrite NEG (NEG) Urine Bilirubin NEG (NEG) Urine Urobilinogen NEG (NEG) Urine Leukocyte Esterase NEG (NEG) Urine WBC (Auto) 0 /hpf (0-5) Urine RBC (Auto) 0-4 /hpf (0-4) Urine Hyaline Casts (Auto) 0 /lpf (0-5) Urine Epithelial Cells (Auto) 5-10 /lpf (0-5) Urine Bacteria (Auto) NEG (NEG) White Blood Count 2.36 K/uL (4.8-10.8) Red Blood Count 4.12 M/uL (4.7-6.1) Hemoglobin 11.9 g/dL (14.0-18.0) Hematocrit 33.3 % (42-52) Mean Corpuscular Volume 80.8 fL (80-100) Mean Corpuscular Hemoglobin 28.9 pg (25-34) Mean Corpuscular Hemoglobin Concent 35.7 g/dl (32-36) Platelet Count 172 K/uL (130-400) Mean Platelet Volume 8.6 fL (7.4-10.4) Neutrophils (%) (Auto) 83.1 % Lymphocytes (%) (Auto) 14.4 % Monocytes (%) (Auto) 2.5 % Eosinophils (%) (Auto) 0.0 % Basophils (%) (Auto) 0.0 % Neutrophils # (Auto) 1.96 K/uL (1.4-6.5) Lymphocytes # (Auto) 0.34 K/uL (1.2-3.4) Monocytes # (Auto) 0.06 K/uL (0.11-0.59) Eosinophils # (Auto) 0.00 K/uL (0-0.5) Basophils # (Auto) 0.00 K/uL (0-0.2) RDW Standard Deviation 37.5 fL (36.4-46.3) RDW Coefficient of Variation 12.7 % (11.5-14.5) Immature Granulocyte % (Auto) 0.0 % Immature Granulocyte # (Auto) 0.00 K/uL (0.00-0.02) Anion Gap 9.0 mmol/L (3-11) Est Creatinine Clear Calc Drug Dose 64.7 ml/min Estimated GFR () 75.2 Estimated GFR (Non- 64.9 BUN/Creatinine Ratio 12.6 (10-20) Calcium Level 8.8 mg/dl (8.5-10.1) Magnesium Level 2.0 mg/dl (1.8-2.4) Total Bilirubin 1.2 mg/dl (0.2-1) Aspartate Amino Transf (AST/SGOT) 45 U/L (15-37) Alanine Aminotransferase (ALT/SGPT) 43 U/L (12-78) Alkaline Phosphatase 71 U/L (45-117) Total Protein 7.4 gm/dl (6.4-8.2) Albumin 3.7 gm/dl (3.4-5.0) Globulin 3.7 gm/dl (2.5-4.0) Albumin/Globulin Ratio 1.0 (0.9-2) Laboratory results reviewed by me. Medications Administered Medications (Trade) Dose Ordered Sig/Valarie Route Start Time Stop Time Status Last Admin Dose Admin Sodium Chloride 500 ml @ 999 mls/hr Q31M STAT IV 05/15/17 21:58 05/15/17 22:28 DC 05/15/17 22:32 999 MLS/HR Sodium Chloride 1,000 ml @ 200 mls/hr Q5H STAT IV 05/15/17 21:58 05/16/17 02:57 05/15/17 23:53 200 MLS/HR Sodium Chloride 500 ml @ 999 mls/hr Q31M STAT IV 05/15/17 22:56 05/15/17 23:26 DC 05/15/17 23:15 999 MLS/HR ED Course 2151: The patient was evaluated in room C2b. A complete history and physical exam was performed. 2158: NSS 1000 ml @ 200 mls/hr, NSS 500 ml @ 999 mls/hr. 2256: NSS 500 ml @ 999 mls/hr. 0025: Reassessed the patient. Discussed the workup with him. He understands and agrees with the treatment plan. The patient is ready for discharge. Medical Decision Differential diagnosis includes dehydration, UTI, electrolyte imbalance, hyperglycemia, hyponatremia, renal colic, hydronephrosis. Medication Reconciliation: I attest that I have personally reviewed the patient' s current medication list. Blood pressure screening: Patient was found to have a slightly elevated blood pressure due to circumstances. I do not believe that the patient requires hypertension monitoring. There is no leukocytosis, in fact, the white count is slightly low which may indicate a viral illness. No concerning anemia. Renal panel testing shows a mildly elevated blood sugar, the sodium was somewhat low at 130 but not concerning. No kidney failure. There were a few scattered liver enzyme elevations. Urinalysis did not show infection or significant hematuria. Abdominal and pelvis CT showed some chronic findings, no ureteral stone. No evidence for bowel obstruction. The patient received IV saline, he was given 2 IV boluses. He is resting comfortably. The patient was reassured by his testing, he feels well and would like to be discharged home. I did tell the patient to stop the prednisone as this may be causing the hyperglycemia and maybe even his increased urination. The patient was told to follow with his doctors office. He will have his white count, urine and sugar rechecked at his doctor's office in a few days. He can return here for worsening symptoms. Impression Primary Impression: Urinary frequency Additional Impression: Weakness Scribe Attestation The scribe's documentation has been prepared under my direction and personally reviewed by me in its entirety. I confirm that the note above accurately reflects all work, treatment, procedures, and medical decision making performed by me. Departure Information Dispostion Home / Self-Care Referrals Oren oSl M.D. (PCP) Forms HOME CARE DOCUMENTATION FORM, IMPORTANT VISIT INFORMATION Patient Instructions My [facility] Additional Instructions stay well hydrated stop the prednisone talk with your doctor for a recheck and repeat sugar, white count and urine test (blood in urine) return for worsening symptoms as we discussed sodium level was ok today Problem Qualifiers
[2017-08-02] MEDS ORDERED: CALC600T9 PO (13:45)
[2017-08-02] MEDS ORDERED: ONDA4TAB46 PO (13:45)
[2017-08-02] MEDS ORDERED: PANT40TA2 PO (18:31)
[2017-08-06] MEDS ORDERED: SDMC1 PO (12:09)
[2017-08-06] MEDS ORDERED: VNFI IV (12:09)
[2017-08-06] MEDS ORDERED: LSX20 PO (12:09)
== END 2017-05-16 00:38 | disposition home or self-care (01) ==
LOC: C.EDB 21:30 → C.EDC 05-16 00:38
DX: R35.0 Frequency of micturition (principal); R53.1 Weakness; Z87.442 Personal history of urinary calculi; K50.90 Crohn's disease, unspecified, without complications; K21.9 Gastro-esophageal reflux disease without esophagitis; Z90.49 Acquired absence of other specified parts of digestive tract; Z83.3 Family history of diabetes mellitus; Z82.49 Family history of ischemic heart disease and other diseases of the circulatory system; Z79.899 Other long term (current) drug therapy

== ENCOUNTER → 2017-05-23 | Outpatient (CLI) | payer BC ==
[~2017-05-23] MED LIST changes: +ASCO500T16 PO; +BCTROWC TOP; +CALC600T9 PO; +LEVO50TA6 PO; +LSX20 PO; +LXP10 PO; +MDRDP21 PO; +MULTTAB5 PO; +NRN100 PO; +ONDA4TAB46 PO; +PRT/40 PO; +SDMC1 PO; +VNFI IV; -[UNRECOGNIZED DRUG - CODE] PO
--- NOTE | 2017-05-23 11:16 | DIAGNOSTIC IMAGING REPORT ---
LEFT HIP UNILATERAL 2 VIEWS CLINICAL HISTORY: M25.552 Left hip painM25.562 Left knee [id number] COMPARISON: None. DISCUSSION: Mild degenerative narrowing left and joint space. No evidence for acetabular protrusion. Cortical margins are intact. There is no evidence for soft tissue swelling. IMPRESSION: Mild degenerative change. No acute process. Electronically signed by: David Noyola M.D. 05/23/2017 11:15 AM Dictated Date/Time: 05/23/2017 11:15 AM
--- NOTE | 2017-05-23 11:17 | DIAGNOSTIC IMAGING REPORT ---
LEFT KNEE 1 OR 2 VIEWS ROUTINE CLINICAL HISTORY: M25.552 Left hip painM25.562 Left knee [id number] COMPARISON: None. DISCUSSION: The bones and joint spaces appear intact. There is no evidence of fracture, dislocation or bony disease. There is no evidence for soft tissue swelling. IMPRESSION: Negative study. Electronically signed by: David Noyola M.D. 05/23/2017 11:15 AM Dictated Date/Time: 05/23/2017 11:15 AM
== END | disposition home or self-care (01) ==
LOC: C.RAD1850 09:59
PROVIDERS: ATTEND Internal Medicine
DX: M25.552 Pain in left hip (principal); M25.562 Pain in left knee

== ENCOUNTER → 2017-07-10 | Outpatient (CLI) | payer BC | END | disposition home or self-care (01) | LOC: C.RDSM 09:00 | PROVIDERS: ATTEND Family Medicine Sports Medicine | DX: M54.5 Low back pain (principal); M54.2 Cervicalgia ==

== ENCOUNTER 2017-08-02 14:21 | Inpatient (IN) | payer BC ==
[~2017-08-02] VITALS: Ht 175.3 cm; Wt 71.9 kg
[~2017-08-02 14:21] MED LIST changes: -ASCO500T16 PO; -BCTROWC TOP; -LEVO50TA6 PO; -LSX20 PO; -LXP10 PO; -MULTTAB5 PO; -PRT/40 PO; -SDMC1 PO; -VNFI IV
[2017-08-02] MEDS ORDERED: ASCO500T16 PO (14:35)
[2017-08-02] MEDS ORDERED: MULTTAB5 PO (14:35)
[2017-08-02] MEDS ORDERED: BCTROWC TOP (15:08)
[2017-08-02] MEDS ORDERED: SDMC1 PO (15:08)
[2017-08-02 15:15] LABS: BASO % 0.4 %; BASO ABS # 0.02 K/uL (0-0.2); COMPLETE YES; EOS % 5.2 %; HEMATOCRIT 30.1 % (42-52); IG% 0.2 %; LYMPH % 23.1 %; LYMPH ABS # 1.19 K/uL (1.2-3.4); MEAN CELL VOLUME 79.4 fL (80-100); MEAN CORPUSCULAR HGB CONC 36.5 g/dl (32-36); MEAN PLATELET VOLUME 8.4 fL (7.4-10.4); MONO % 15.7 %; NEUT % 55.4 %; PLATELET COUNT 183 K/uL (130-400); RED BLOOD COUNT 3.79 M/uL (4.7-6.1); WHITE BLOOD COUNT 5.15 K/uL (4.8-10.8)
[2017-08-02 15:26] LABS: BUN/CREATININE RATIO 14.9 (10-20); CALCIUM 8.6 mg/dl (8.5-10.1); CREATININE 0.82 mg/dl (0.60-1.40); POTASSIUM 4.6 mmol/L (3.5-5.1)
[2017-08-02 15:36] LABS: MAGNESIUM 1.8 mg/dl (1.8-2.4)
--- NOTE | 2017-08-02 15:39 | DIAGNOSTIC IMAGING REPORT ---
CT OF THE ABDOMEN AND PELVIS WITHOUT CONTRAST, STONE PROTOCOL CLINICAL HISTORY: Left flank pain. COMPARISON STUDY: CT of the abdomen and pelvis May 15, 2017. TECHNIQUE: Helical axial images of the abdomen and pelvis were obtained without IV or oral contrast according to renal stone protocol. A dose lowering technique was utilized adhering to the principles of ALARA. FINDINGS: A trace left pleural effusion has decreased in size since exam of April 25, 2017. No renal, ureteral or bladder calculi are identified. There is no hydronephrosis or hydroureter. Mild bladder wall thickening is noted and is accentuated by underdistention. There may be minimal infiltration adjacent to the bladder. There are gallstones within the gallbladder. There is no pericholecystic infiltration. Evaluation of the abdomen and pelvis is suboptimal on this unenhanced exam. Unenhanced images of liver, spleen, adrenal glands and pancreas are unremarkable. There is no peripancreatic infiltration. The patient is status post right hemicolectomy. An enteral side anastomosis is suspected. Intraluminal radiodensities within the blind end of a bowel loop are unchanged. Scattered colonic diverticula are noted without evidence for acute diverticulitis. There is no abscess within the abdomen or pelvis. No suspicious osseous lesions are present. IMPRESSION: 1. No urinary calculi or hydronephrosis. 2. Mild bladder wall thickening which is likely chronic however could be correlated with urinalysis to exclude cystitis. 3. No bowel obstruction status post right hemicolectomy. 4. Cholelithiasis. 5. Trace left pleural effusion, decreased in size since CT of April 25, 2017. Electronically signed by: Edgar Maynard M.D. 08/02/2017 3:38 PM Dictated Date/Time: 08/02/2017 3:30 PM
[2017-08-02 16:30] LABS: MANUAL MICROSCOPIC REQUIRED? NO; REVIEW REQ? NO; URINE APPEARANCE CLEAR (CLEAR); URINE BILIRUBIN NEG (NEG); URINE COLOR YELLOW; URINE EPITHELIAL CELL AUTO 0-5 /lpf (0-5); URINE NITRITE NEG (NEG); URINE PH 6.5 (4.5-7.5); URINE SPECIFIC GRAVITY 1.021 (1.000-1.030); UROBILINOGEN NEG (NEG); ZZUR CULT IF INDIC CLEAN CATCH NO
[2017-08-02] MEDS ORDERED: BACITRACIN OINT 15 GM TUBE TOP PRN (18:15)
[2017-08-02] MEDS ORDERED: ONDANSETRON 4 MG TAB PO PRN (18:15)
[2017-08-02] MEDS ORDERED: SODIUM CHLORIDE 0.45% 1000ML 1,000 ML IV SCH (18:15)
[2017-08-02] MEDS ORDERED: ONDANSETRON INJ 2 MG/ML 2 ML VIAL IV PRN (18:15)
[2017-08-02] MEDS ORDERED: MAGNESIUM HYDROXIDE SUSP 30 ML UDC PO PRN (18:15)
[2017-08-02] MEDS ORDERED: NITROGLYCERIN 0.4 MG SL PER TAB CHARGE SL PRN (18:15)
[2017-08-02] MEDS ORDERED: ALUMINUM/MAGNESIUM/SIMETH (MAALOX MAX) 30 ML UDC PO PRN (18:15)
[2017-08-02] MEDS ORDERED: POLYETHYLENE (MIRALAX) 17 GM PACK PO PRN (18:15)
[2017-08-02] MEDS ORDERED: PRT/40 PO (18:31)
[2017-08-02] MEDS ORDERED: LEVO50TA6 PO (18:31)
--- NOTE | 2017-08-02 18:34 | History and Physical ---
History & Physical Date & Time of Service: Aug 02, 2017 at 18:17 Chief Complaint: Cramping In Legs,Pain On Left Side Primary Care Physician: Oren Sol M.D. History of Present Illness Source: patient, family ( at bedside), clinic records, hospital records Patient is a pleasant 61 y/o male, with PMHx of Crohn's disease, hyponatremia, chronic anemia, anxiety, RLS, and hypothyroidism, who presented to the ED because of worsening fatigue and bilateral lower extremity cramping x2 weeks. Patient states symptoms are similar to past experiences with hypoNa. He has been seen here multiple times for hypoNa. Patient/ state they have not determined the cause of his hyponatremia. He is currently on 1L fluid restriction and 2g daily sodium tablet. However, patient states he has been unable to tolerate his sodium tablet; it causes him nausea and vomiting. He tried to crush up the tablets and place them in a gel capsule, which seemed to help initially, but eventually led to upset stomach. He has taken maybe 1g in the last two weeks. He states he has been drinking 2-3 Gatorades per day and 1- 2 bottles of water. He has a h/o Crohn's s/p ileectomy- he has been in remission since. He notes diarrhea on and off, but this is not uncommon for him. He denies any BRBPR and melena. He has a h/o anemia. He believes it is possibly iron deficient, but he is also unable to tolerate iron supplement as it upsets his stomach. He is able to tolerate slow release tablets, but states he has difficulty finding the supplement OTC so has basically discontinued. Patient denies any fever, chills, sweats, lightheadedness, dizziness, vision changes, CP, palpitations, edema, SOB, wheezing, cough, abdominal pain, nausea, vomiting, diarrhea, urinary symptoms, melena, numbness/tingling, weakness, joint pain, anxiety/depression, active bleeding, or new skin discoloration/ changes. Past Medical/Surgical History Medical Problems: Crohn's disease chronic hyponatremia chronic anemia anxiety RLS hypothyroidism Surgical Problems: appendectomy ileectomy rectal abscess s/p I&D tonsillectomy Family History FHx: diabetes FHx: gallbladder disease FHx: hypertension FHx: kidney disease Social History Smoking Status: Never Smoker Drug Use: none Marital Status: Housing status: lives with family Occupational Status: retired Immunizations History of Influenza Vaccine: No History of Tetanus Vaccine?: Yes History of Pneumococcal: No History of Hepatitis B Vaccine: No Multi-Drug Resistant Organisms History of MDRO: No Allergies Coded Allergies: Metronidazole (Verified Allergy, Unknown, NUMBNESS - IV FORMULATION, ) Zolpidem (Verified Allergy, Unknown, UNKNOWN, 05/15/17) CAUSED HALLUCINATIONS Prednisone (Verified Adverse Reaction, Severe, high blood sugar, 08/02/17) Pork (Verified Adverse Reaction, Intermediate, GI SYMPTOMS, 05/15/17) Aspirin (Verified Adverse Reaction, Mild, Stomach pain, 05/15/17) Pork (Porcine) Protein (Unverified Adverse Reaction, Mild, GI SYMPTOMS, ) Ibuprofen (Verified Adverse Reaction, Unknown, GI UPSET, 05/15/17) Home Medications Scheduled Ascorbic Acid (Ascorbic Acid), 500 MG PO NOON Calcium Carbonate-Vitamin D (Calcium + D), 1 TAB PO QAM Escitalopram Oxalate (Escitalopram Oxalate), 10 MG PO HS Gabapentin (Gabapentin), 100 MG PO HS Levothyroxine Sodium (Levothyroxine Sodium), 50 MCG PO QAM Multiple Vitamins W/ Minerals (Centrum), 1 TAB PO NOON Pantoprazole (Pantoprazole Sodium), 40 MG PO DAILY Sodium Chloride (Sodium Chloride), 1 GM PO DAILY Scheduled PRN Mupirocin (Bactroban 2% Oint), 1 APPLN TOP TID PRN for Ondansetron Hcl (Zofran), 4 MG PO TID PRN for Nausea Physical Exam Vital Signs Date Time Temp Pulse Resp B/P (MAP) Pulse Ox O2 Delivery O2 Flow Rate FiO2 08/02/17 15:43 87 18 141/75 100 08/02/17 14:26 36.7 96 20 128/70 97 Room Air General Appearance: no apparent distress Head: normocephalic, atraumatic Eyes: normal inspection, PERRL ENT: hearing grossly normal Neck: supple Respiratory/Chest: lungs clear, no respiratory distress, no accessory muscle use Cardiovascular: regular rate, rhythm Abdomen/GI: normal bowel sounds, non tender, soft Back: normal inspection Extremities/Musculoskelatal: no calf tenderness, + swelling (nonpitting edema noted to bilateral feet ) Neurologic/Psych: alert, normal mood/affect, oriented x 3 Skin: warm/dry, no rash, + pallor Diagnostics Laboratory Results Results Past 24 Hours Test 08/02/17 14:50 08/02/17 16:15 Range/Units White Blood Count 5.15 4.8-10.8 K/uL Red Blood Count 3.79 4.7-6.1 M/uL Hemoglobin 11.0 14.0-18.0 g/dL Hematocrit 30.1 42-52 % Mean Corpuscular Volume 79.4 80-100 fL Mean Corpuscular Hemoglobin 29.0 25-34 pg Mean Corpuscular Hemoglobin Concent 36.5 32-36 g/dl Platelet Count 183 130-400 K/uL Mean Platelet Volume 8.4 7.4-10.4 fL Neutrophils (%) (Auto) 55.4 % Lymphocytes (%) (Auto) 23.1 % Monocytes (%) (Auto) 15.7 % Eosinophils (%) (Auto) 5.2 % Basophils (%) (Auto) 0.4 % Neutrophils # (Auto) 2.85 1.4-6.5 K/uL Lymphocytes # (Auto) 1.19 1.2-3.4 K/uL Monocytes # (Auto) 0.81 0.11-0.59 K/uL Eosinophils # (Auto) 0.27 0-0.5 K/uL Basophils # (Auto) 0.02 0-0.2 K/uL RDW Standard Deviation 37.7 36.4-46.3 fL RDW Coefficient of Variation 13.0 11.5-14.5 % Immature Granulocyte % (Auto) 0.2 % Immature Granulocyte # (Auto) 0.01 0.00-0.02 K/uL Sodium Level 124 136-145 mmol/L Potassium Level 4.6 3.5-5.1 mmol/L Chloride Level 90 98-107 mmol/L Carbon Dioxide Level 28 21-32 mmol/L Anion Gap 6.0 3-11 mmol/L Blood Urea Nitrogen 12 7-18 mg/dl Creatinine 0.82 0.60-1.40 mg/dl Est Creatinine Clear Calc Drug Dose 94.6 ml/min Estimated GFR () 110.6 Estimated GFR (Non- 95.4 BUN/Creatinine Ratio 14.9 10-20 Random Glucose 98 70-99 mg/dl Calcium Level 8.6 8.5-10.1 mg/dl Magnesium Level 1.8 1.8-2.4 mg/dl Total Bilirubin 1.1 0.2-1 mg/dl Direct Bilirubin 0.2 0-0.2 mg/dl Aspartate Amino Transf (AST/SGOT) 24 15-37 U/L Alanine Aminotransferase (ALT/SGPT) 20 12-78 U/L Alkaline Phosphatase 58 45-117 U/L Total Creatine Kinase 183 39-308 U/L Total Protein 6.6 6.4-8.2 gm/dl Albumin 3.3 3.4-5.0 gm/dl Lipase 315 73-393 U/L Urine Color YELLOW Urine Appearance CLEAR CLEAR Urine pH 6.5 4.5-7.5 Urine Specific [place] 1.021 1.000-1.030 Urine Protein 2+ NEG Urine Glucose (UA) NEG NEG Urine Ketones NEG NEG Urine Occult Blood 2+ NEG Urine Nitrite NEG NEG Urine Bilirubin NEG NEG Urine Urobilinogen NEG NEG Urine Leukocyte Esterase NEG NEG Urine WBC (Auto) 0 0-5 /hpf Urine RBC (Auto) 10-30 0-4 /hpf Urine Hyaline Casts (Auto) 0 0-5 /lpf Urine Epithelial Cells (Auto) 0-5 0-5 /lpf Urine Bacteria (Auto) NEG NEG Diagnostic Radiology CT OF THE ABDOMEN AND PELVIS WITHOUT CONTRAST, STONE PROTOCOL CLINICAL HISTORY: Left flank pain. COMPARISON STUDY: CT of the abdomen and pelvis May 15, 2017. TECHNIQUE: Helical axial images of the abdomen and pelvis were obtained without IV or oral contrast according to renal stone protocol. A dose lowering technique was utilized adhering to the principles of ALARA. FINDINGS: A trace left pleural effusion has decreased in size since exam of April 25, 2017. No renal, ureteral or bladder calculi are identified. There is no hydronephrosis or hydroureter. Mild bladder wall thickening is noted and is accentuated by underdistention. There may be minimal infiltration adjacent to the bladder. There are gallstones within the gallbladder. There is no pericholecystic infiltration. Evaluation of the abdomen and pelvis is suboptimal on this unenhanced exam. Unenhanced images of liver, spleen, adrenal glands and pancreas are unremarkable. There is no peripancreatic infiltration. The patient is status post right hemicolectomy. An enteral side anastomosis is suspected. Intraluminal radiodensities within the blind end of a bowel loop are unchanged. Scattered colonic diverticula are noted without evidence for acute diverticulitis. There is no abscess within the abdomen or pelvis. No suspicious osseous lesions are present. IMPRESSION: 1. No urinary calculi or hydronephrosis. 2. Mild bladder wall thickening which is likely chronic however could be correlated with urinalysis to exclude cystitis. 3. No bowel obstruction status post right hemicolectomy. 4. Cholelithiasis. 5. Trace left pleural effusion, decreased in size since CT of April 25, 2017. Electronically signed by: Edgar Maynard M.D. 08/02/2017 3:38 PM Dictated Date/Time: 08/02/2017 3:30 PM The status of this report is Signed. Draft = Not yet reviewed or approved by Radiologist. Signed = Reviewed and approved by Radiologist. Impression Assessment and Plan Patient is a pleasant 61 y/o male, with PMHx of Crohn's disease, hyponatremia, chronic anemia, anxiety, RLS, and hypothyroidism, who presented to the ED because of worsening fatigue and bilateral lower extremity cramping x2 weeks. Chronic hypoNa with sodium at 124, likely due to medication noncompliance: - Admit to tele for cardiac monitoring - IV 1/2 NS @ 75 ml/hr - Fluid restrict to 1L - Sodium tablets held at this time due to upset stomach, nephrology input appreciated- suppose to take 2g daily - Consult nephrology as patient can not tolerate sodium tablets, ?other options - followed w/ Dr. Wilder - Follow PRP Chronic anemia, ?secondary to iron deficiency- baseline hgb 11.0- STABLE: - Check iron panel - Follow CBC - Notes taken iron in the past but could not tolerate- However, tolerates slow release iron supplement but cant find OTC. Hypothyroidism- TSH WNL in 05/11: Continue Synthroid 50 mcg daily Crohn's disease s/p ileectomy- in remission Anxiety: Continue Lexapro 10 mg HS RLS: Gabapentin 100 mg HS GI prophylaxis: Protonix 40 mg daily DVT prophylaxis: Lovenox SQ Code Status: LEVEL I, FULL Dispo: From home, lives w/ - no discharge needs anticipated Level of Care Telemetry Resuscitation Status FULL RESUSCITATION VTE Prophylaxis VTE Risk Assessment Done? Y/N: Yes Risk Level: Moderate Given or contraindicated: Enoxaparin (Lovenox)SQ, T.E.D. Stockings, SCD's Reviewed: Pt Seen/Exam by Me History Pt feeling a bit improved s/p IVF. Still feeling a bit of muscle cramping, but not like prior. No GI issues now. No chest pain or SOB. Agree with HPI/ROS as noted. General Appearance: WD/WN, no apparent distress Respiratory: normal breath sounds, no respiratory distress Cardiovascular: normal peripheral pulses, regular rate, rhythm Gastrointestinal: non tender, soft Extremities: non-tender, no pedal edema Neurologic/Psychiatric: alert, oriented x 3 Skin Characteristics: normal color, warm/dry Assessment/Plan Agree with plan as outlined above Pt with symptomatic hypoNa, hx of same for some time now and no obvious cause for this Has struggled with consistent use of salt tabs due to n/v while taking Has been trying to address with soups and gatorade and adding salt to food CT AP neg
[2017-08-02 18:49] LABS: FERRITIN 31.1 ng/ml (8.0-388.0)
[2017-08-02 19:40] VITALS: BP 150/79; PULSE 82; TEMP 36.7; O2SAT 100; Ht 175.3 cm; Wt 71.9 kg
[2017-08-02 20:33] LABS: PARTIAL THROMBOPLASTIN RATIO 1.3; PROTHROMBIN TIME (PATIENT) 11.2 SECONDS (9.0-12.0)
--- NOTE | 2017-08-02 20:35 | EMERGENCY ROOM VISIT NOTE ---
History Report prepared by Esdras: Adriana Alvarenga Under the Supervision of: Dr. Yuri Bowman M.D. First contact with patient: 14:56 Chief Complaint: FLANK PAIN Stated Complaint: CRAMPING IN LEGS,PAIN ON LEFT SIDE History of Present Illness The patient is a 61 year old male who presents to the Emergency Room with complaints of intermittent left flank pain beginning 4 days ago. The patient states that he has a history of Crohn's disease and low potassium and notes that he is seen here multiple times a year for low potassium. He reports that he has been having leg cramping and lethargy over the last few days that feels very similar to his previous episodes of low potassium. He notes that he has never had flank pain with his symptoms before and states that deep breathing and movement cause the flank pain to worsen. The patient states that he has a history of kidney stones. He also complains of some leg swelling that he just recently saw his PCP for. Pt denies LOC, headache, fevers, chills, diaphoresis, visual changes, neck pain, chest pain, breathing difficulties, nausea, vomiting , abdominal pain, back pain, melena, hematochezia, urinary symptoms, numbness, lymphadenopathy, rash, or other complaints. The patient notes that he is not on any medication for his Crohn's Disease currently and is doing well. Source of History: patient Onset: 4 days ago Position: other (left flank) Timing: intermittent Modifying Factors (Worsening): breathing, movement Review of Systems See HPI for pertinent positives and negatives. A total of ten systems were reviewed and were otherwise negative. Past Medical & Surgical Medical Problems: (1) Crohn's disease (2) GERD (gastroesophageal reflux disease) (3) History of ileectomy (4) Kidney stones (5) Rectal abscess Surgical Problems: (1) History of appendectomy Family History FHx: diabetes FHx: gallbladder disease FHx: hypertension FHx: kidney disease Social History Smoking Status: Never Smoker Alcohol Use: occasionally Drug Use: none Marital Status: Housing Status: lives with significant other Occupation Status: retired Current/Historical Medications Scheduled Ascorbic Acid (Ascorbic Acid), 500 MG PO NOON Calcium Carbonate-Vitamin D (Calcium + D), 1 TAB PO QAM Escitalopram Oxalate (Escitalopram Oxalate), 10 MG PO HS Gabapentin (Gabapentin), 100 MG PO HS Levothyroxine Sodium (Levothyroxine Sodium), 50 MCG PO QAM Multiple Vitamins W/ Minerals (Centrum), 1 TAB PO NOON Pantoprazole (Pantoprazole Sodium), 40 MG PO DAILY Sodium Chloride (Sodium Chloride), 1 GM PO DAILY Scheduled PRN Mupirocin (Bactroban 2% Oint), 1 APPLN TOP TID PRN for Ondansetron Hcl (Zofran), 4 MG PO TID PRN for Nausea Allergies Coded Allergies: Metronidazole (Verified Allergy, Unknown, NUMBNESS - IV FORMULATION, ) Zolpidem (Verified Allergy, Unknown, UNKNOWN, 05/15/17) CAUSED HALLUCINATIONS Prednisone (Verified Adverse Reaction, Severe, high blood sugar, 08/02/17) Pork (Verified Adverse Reaction, Intermediate, GI SYMPTOMS, 05/15/17) Aspirin (Verified Adverse Reaction, Mild, Stomach pain, 05/15/17) Pork (Porcine) Protein (Unverified Adverse Reaction, Mild, GI SYMPTOMS, ) Ibuprofen (Verified Adverse Reaction, Unknown, GI UPSET, 05/15/17) Physical Exam Vital Signs Date Time Temp Pulse Resp B/P (MAP) Pulse Ox O2 Delivery O2 Flow Rate FiO2 08/02/17 18:00 83 18 152/56 99 Room Air 08/02/17 15:43 87 18 141/75 100 08/02/17 14:26 36.7 96 20 128/70 97 Room Air Physical Exam GENERAL: Awake, alert, well-appearing, in no distress HENT: Normocephalic, atraumatic. Oropharynx unremarkable. EYES: Normal conjunctiva. Sclera non-icteric. NECK: Supple. No nuchal rigidity. FROM. No JVD. RESPIRATORY: Clear to auscultation. CARDIAC: Regular rate, normal rhythm. Extremities warm and well perfused. Pulses equal. ABDOMEN: Soft, non-distended. No tenderness to palpation. No rebound or guarding. No masses. RECTAL: Deferred. MUSCULOSKELETAL: Chest examination reveals no tenderness. The back is symmetrical on inspection without obvious abnormality. There is left CVA tenderness to palpation. No joint edema. LOWER EXTREMITIES: Calves are equal size bilaterally and non-tender. No discoloration. 1+ edema bilaterally. NEURO: Normal sensorium. No sensory or motor deficits noted. SKIN: No rash or jaundice noted. Medical Decision & Procedures ER Provider Diagnostic Interpretation: Radiology results as stated below per my review and radiologist interpretation: CT OF THE ABDOMEN AND PELVIS WITHOUT CONTRAST, STONE PROTOCOL FINDINGS: A trace left pleural effusion has decreased in size since exam of April 25, 2017. No renal, ureteral or bladder calculi are identified. There is no hydronephrosis or hydroureter. Mild bladder wall thickening is noted and is accentuated by underdistention. There may be minimal infiltration adjacent to the bladder. There are gallstones within the gallbladder. There is no pericholecystic infiltration. Evaluation of the abdomen and pelvis is suboptimal on this unenhanced exam. Unenhanced images of liver, spleen, adrenal glands and pancreas are unremarkable. There is no peripancreatic infiltration. The patient is status post right hemicolectomy. An enteral side anastomosis is suspected. Intraluminal radiodensities within the blind end of a bowel loop are unchanged. Scattered colonic diverticula are noted without evidence for acute diverticulitis. There is no abscess within the abdomen or pelvis. No suspicious osseous lesions are present. IMPRESSION: 1. No urinary calculi or hydronephrosis. 2. Mild bladder wall thickening which is likely chronic however could be correlated with urinalysis to exclude cystitis. 3. No bowel obstruction status post right hemicolectomy. 4. Cholelithiasis. 5. Trace left pleural effusion, decreased in size since CT of April 25, 2017. Electronically signed by: Edgar Maynard M.D. 08/02/2017 3:38 PM Dictated Date/Time: 08/02/2017 3:30 PM Laboratory Results 08/02/17 14:50 Red Blood Count 3.79, Mean Corpuscular Volume 79.4, Mean Corpuscular Hemoglobin 29.0, Mean Corpuscular Hemoglobin Concent 36.5, Mean Platelet Volume 8.4, Neutrophils (%) (Auto) 55.4, Lymphocytes (%) (Auto) 23.1, Monocytes (%) (Auto) 15.7, Eosinophils (%) (Auto) 5.2, Basophils (%) (Auto) 0.4, Neutrophils # (Auto ) 2.85, Lymphocytes # (Auto) 1.19, Monocytes # (Auto) 0.81, Eosinophils # (Auto ) 0.27, Basophils # (Auto) 0.02 08/02/17 14:50 Test 9/8/17 14:50 08/02/17 16:15 White Blood Count 5.15 K/uL (4.8-10.8) Red Blood Count 3.79 M/uL (4.7-6.1) Hemoglobin 11.0 g/dL (14.0-18.0) Hematocrit 30.1 % (42-52) Mean Corpuscular Volume 79.4 fL (80-100) Mean Corpuscular Hemoglobin 29.0 pg (25-34) Mean Corpuscular Hemoglobin Concent 36.5 g/dl (32-36) Platelet Count 183 K/uL (130-400) Mean Platelet Volume 8.4 fL (7.4-10.4) Neutrophils (%) (Auto) 55.4 % Lymphocytes (%) (Auto) 23.1 % Monocytes (%) (Auto) 15.7 % Eosinophils (%) (Auto) 5.2 % Basophils (%) (Auto) 0.4 % Neutrophils # (Auto) 2.85 K/uL (1.4-6.5) Lymphocytes # (Auto) 1.19 K/uL (1.2-3.4) Monocytes # (Auto) 0.81 K/uL (0.11-0.59) Eosinophils # (Auto) 0.27 K/uL (0-0.5) Basophils # (Auto) 0.02 K/uL (0-0.2) RDW Standard Deviation 37.7 fL (36.4-46.3) RDW Coefficient of Variation 13.0 % (11.5-14.5) Immature Granulocyte % (Auto) 0.2 % Immature Granulocyte # (Auto) 0.01 K/uL (0.00-0.02) Prothrombin Time 11.2 SECONDS (9.0-12.0) Prothromb Time International Ratio 1.0 (0.9-1.1) Activated Partial Thromboplast Time 32.8 SECONDS (21.0-31.0) Partial Thromboplastin Ratio 1.3 Anion Gap 6.0 mmol/L (3-11) Est Creatinine Clear Calc Drug Dose 94.6 ml/min Estimated GFR () 110.6 Estimated GFR (Non- 95.4 BUN/Creatinine Ratio 14.9 (10-20) Calcium Level 8.6 mg/dl (8.5-10.1) Magnesium Level 1.8 mg/dl (1.8-2.4) Iron Level 54 mcg/dl (35-175) Total Iron Binding Capacity 298 mcg/dl (250-450) Transferrin 233 mg/dl (200-360) Transferrin % Saturation 17 % (20-50) Ferritin 31.1 ng/ml (8.0-388.0) Total Bilirubin 1.1 mg/dl (0.2-1) Direct Bilirubin 0.2 mg/dl (0-0.2) Aspartate Amino Transf (AST/SGOT) 24 U/L (15-37) Alanine Aminotransferase (ALT/SGPT) 20 U/L (12-78) Alkaline Phosphatase 58 U/L (45-117) Total Creatine Kinase 183 U/L (39-308) Total Protein 6.6 gm/dl (6.4-8.2) Albumin 3.3 gm/dl (3.4-5.0) Lipase 315 U/L (73-393) Urine Color YELLOW Urine Appearance CLEAR (CLEAR) Urine pH 6.5 (4.5-7.5) Urine Specific [place] 1.021 (1.000-1.030) Urine Protein 2+ (NEG) Urine Glucose (UA) NEG (NEG) Urine Ketones NEG (NEG) Urine Occult Blood 2+ (NEG) Urine Nitrite NEG (NEG) Urine Bilirubin NEG (NEG) Urine Urobilinogen NEG (NEG) Urine Leukocyte Esterase NEG (NEG) Urine WBC (Auto) 0 /hpf (0-5) Urine RBC (Auto) 10-30 /hpf (0-4) Urine Hyaline Casts (Auto) 0 /lpf (0-5) Urine Epithelial Cells (Auto) 0-5 /lpf (0-5) Urine Bacteria (Auto) NEG (NEG) Laboratory results reviewed by al ED Course 1456: The patient was evaluated in room C2. A complete history and physical exam was performed. 1713: I reevaluated and updated the patient. 1725: Discussed the patient's [place] [facility] [place] The patient will be evaluated for further treatment and disposition. 1736: Upon reexamination, the patient was doing well. I discussed the test results and treatment plan with He. The patient will be evaluated for further management. Medical Decision Triage Nursing notes reviewed. The patient's presentation and history were concerning for leg cramping and flank pain Etiologies such as metabolic, infection, hypo/hyperglycemia, electrolyte abnormalities, cardiac sources, intracerebral event, toxicologic, neurologic, kidney stone, UTI, as well as others were entertained. The patient presented. Physical examination as above. Laboratory imaging was obtained. The patient was hydrated with normal saline. CBC showed a mild anemia but no leukocytosis. Urinalysis was negative. Magnesium, LFTs and lipase were unremarkable. The patient's chemistry panel revealed a normal potassium however his sodium was quite low at 124. CT imaging of the abdomen and pelvis did not reveal any acute findings. Given his symptoms and his sodium of 124 further evaluation and management in hospital will be necessary. The patient was educated. He agreed. Consultation was made with internal medicine. The patient was evaluated in the Emergency Room for further management. Medication Reconcilliation Current Medication List: was personally reviewed by me Blood Pressure Screening Patient's blood pressure: Normal blood pressure Blood pressure disposition: Did not require urgent referral Consults Time Called: 1720 Consulting Physician: Dr. Sanchez - [facility] [place] Returned Call: [phone] Discussed the patient's case with Dr. Sanchez of [facility] The patient will be evaluated for further treatment and disposition. Impression Primary Impression: Hyponatremia Additional Impression: Left flank pain Scribe Attestation The scribe's documentation has been prepared under my direction and personally reviewed by me in its entirety. I confirm that the note above accurately reflects all work, treatment, procedures, and medical decision making performed by me. Departure Information Dispostion Being Evaluated By Hospitalist Referrals Oren Sol M.D. (PCP) Patient Instructions My [facility] Problem Qualifiers
[2017-08-02] MEDS ORDERED: LXP10 PO (20:46)
[2017-08-02] MEDS ORDERED: ESCITALOPRAM OXALATE 10 MG TAB PO SCH (21:00)
[2017-08-02] MEDS: ENOXAPARIN 40 MG/0.4 ML SYR SC SCH (21:00)
[2017-08-02] MEDS: GABAPENTIN 100 MG CAP PO SCH (21:41)
[2017-08-02 23:07] VITALS: BP 146/77; PULSE 77; TEMP 36.4; O2SAT 99
[2017-08-03 03:20] VITALS: BP 142/82; PULSE 88; TEMP 36.8; O2SAT 97
[2017-08-03 05:55] LABS: HEMATOCRIT 31.2 % (42-52); MEAN CELL VOLUME 79.6 fL (80-100); MEAN CORPUSCULAR HEMOGLOBIN 28.1 pg (25-34); MEAN CORPUSCULAR HGB CONC 35.3 g/dl (32-36); MEAN PLATELET VOLUME 8.4 fL (7.4-10.4); PLATELET COUNT 181 K/uL (130-400); RED BLOOD COUNT 3.92 M/uL (4.7-6.1); WHITE BLOOD COUNT 5.31 K/uL (4.8-10.8)
[2017-08-03 06:12] LABS: BUN/CREATININE RATIO 17.5 (10-20); CALCIUM 8.3 mg/dl (8.5-10.1); CREATININE 0.65 mg/dl (0.60-1.40); POTASSIUM 4.2 mmol/L (3.5-5.1)
[2017-08-03] MEDS: LEVOTHYROXINE 50 MCG TAB PO SCH (06:12)
[2017-08-03 08:02] VITALS: BP 143/84; PULSE 87; TEMP 36.7; O2SAT 98
[2017-08-03] MEDS ORDERED: SODIUM CHLORIDE 0.9% 1000ML 1,000 ML IV SCH (08:07)
[2017-08-03] MEDS: CEROVITE ADV FORMULA TAB PO SCH (09:13)
[2017-08-03] MEDS: PANTOprazole SOD 40 MG TAB PO SCH (09:13)
[2017-08-03 11:57] VITALS: BP 144/81; PULSE 85; TEMP 36.3; O2SAT 98
[2017-08-03] MEDS ORDERED: IRON SUCROSE INJ 100 MG in SODIUM CHLORIDE 0.9% 100ML 100 ML IV ONE (12:00)
--- NOTE | 2017-08-03 12:04 | Nephrology Consultation ---
Nephrology Consultation Date & Providers Date of Consultation: Aug 03, 2017. Primary Care Provider: Oren Sol M.D. Referring Provider: Reason for Consultation Hyponatremia History of Present Illness Mr. Ha Huitron is a 61-year-old male with a history of SIADH and recurrent hyponatremia. Dysnatremia was first identified in 2013 during hospitalization. The patient was seen by Dr. Wood at that time. Serum sodium improved with fluid restriction, oral NaCl and stopping Zoloft. Diagnosis was consistent with SSRI associated SIADH. The patient did follow up with Dr. Wood until the spring. Serum sodium remained stable with free water restriction and oral NaCl. Mr. Huitron was encouraged to return in the future as needed. In October, Lexapro was started for situational depression. Mr. Huitron reports good symptomatic response. He unfortunately developed sensitivity to oral salt tablets and was unable to tolerate the medication. He describes significant nausea and vomiting. He did try crushing the tablets but this not improve his tolerance. In April, he stopped NaCl and favored a sodium liberal diet. He has been drinking Gatorade and eating more soup to help encourage sodium intake. He typically drinks 2-3 x 12 ounce Gatorades each day with 1-2 water bottles. Over the past several months, serum sodium has been declining. In December, it was 138 mmol/L. In April it was 130 mmol/L. Mr. Huitron presented to [facility] yesterday with fatigue and leg cramps. Symptoms are similar to prior episodes of hyponatremia. He denies any headaches or confusion. He denies dysequilibrium. He denies falls. He denies diarrhea. He has experienced vomiting associated with oral NaCl but denies any other episodes. Medical history is notable for pulmonary nodules. Follow up evaluation with CT chest in January 2017 noted scattered small nodules of low suspicion. 1 year follow up was suggested. Several small nodules previously noted had resolved consistent with inflammatory changes. Medical records from inpatient and outpatient EHR were reviewed in detail and summarized as above. Past Medical/Surgical History Medical: History of hyponatremia Hypothyroidism Depression/MARIELLE OA HLA B27+ Pulmonary nodules History of Crohn's treated with ileectomy History of dysphagia and esophageal stricture Osteopenia Iron deficiency anemia Surgical: Ileectomy, appendectomy Allergies Coded Allergies: Metronidazole (Verified Allergy, Unknown, NUMBNESS - IV FORMULATION, ) Zolpidem (Verified Allergy, Unknown, UNKNOWN, 05/15/17) CAUSED HALLUCINATIONS Prednisone (Verified Adverse Reaction, Severe, high blood sugar, 08/02/17) Pork (Verified Adverse Reaction, Intermediate, GI SYMPTOMS, 05/15/17) Aspirin (Verified Adverse Reaction, Mild, Stomach pain, 05/15/17) Pork (Porcine) Protein (Unverified Adverse Reaction, Mild, GI SYMPTOMS, ) Ibuprofen (Verified Adverse Reaction, Unknown, GI UPSET, 05/15/17) Inpatient Medications Current Inpatient Medications Medications (Trade) Dose Ordered Sig/Valarie Route Start Time Stop Time Status Last Admin Dose Admin Enoxaparin Sodium (Lovenox Inj) 40 mg Q24H SC 08/02/17 21:00 09/01/17 20:59 Acetaminophen (Tylenol Tab) 650 mg Q4H PRN PO 08/02/17 18:15 09/01/17 18:14 Al Hydrox/Mg Hydrox/Simethicone (Maalox Max Susp) 15 ml Q4H PRN PO 08/02/17 18:15 09/01/17 18:14 Magnesium Hydroxide (Milk Of Magnesia Susp) 30 ml Q12H PRN PO 08/02/17 18:15 09/01/17 18:14 Ondansetron HCl (Zofran Inj) 4 mg Q6H PRN IV 08/02/17 18:15 09/01/17 18:14 Nitroglycerin (Nitrostat Tab) 0.4 mg UD PRN SL 08/02/17 18:15 09/01/17 18:14 Polyethylene (Miralax Powder Packet) 17 gm DAILY PRN PO 08/02/17 18:15 09/01/17 18:14 Ascorbic Acid (Vitamin C Tab) 500 mg DAILY@1200 PO 08/03/17 12:00 09/02/17 11:59 Escitalopram Oxalate (Lexapro Tab) 10 mg HS PO 08/02/17 21:00 09/01/17 20:59 08/02/17 21:40 10 MG Gabapentin (Neurontin Cap) 100 mg HS PO 08/02/17 21:00 09/01/17 20:59 08/02/17 21:41 100 MG Levothyroxine Sodium (Synthroid Tab) 50 mcg DAILYBB PO 08/03/17 06:00 09/02/17 05:59 08/03/17 06:12 50 MCG Multivitamins/ Minerals (Multivitamin W/ Minerals Tab) 1 tab DAILY PO 08/03/17 09:00 09/02/17 08:59 08/03/17 09:13 1 TAB Bacitracin (Bacitracin Oint) 1 appln TID PRN TOP 08/02/17 18:15 09/01/17 18:14 Ondansetron HCl (Zofran Tab) 4 mg TID PRN PO 08/02/17 18:15 09/01/17 18:14 Pantoprazole Sodium (Protonix Tab) 40 mg DAILY PO 08/03/17 09:00 09/02/17 08:59 08/03/17 09:13 40 MG Sodium Chloride 1,000 ml @ 80 mls/hr [id number] IV 08/03/17 08:07 09/02/17 08:06 08/03/17 09:08 80 MLS/HR Iron Sucrose 100 mg/Sodium Chloride 105 ml @ 420 mls/hr TODAY@1200 ONCE IV 08/03/17 12:00 08/03/17 12:14 Family History FHx: diabetes FHx: gallbladder disease FHx: hypertension FHx: kidney disease Social History Smoking Status: Never Smoker Drug Use: none Marital Status: Housing Status: lives with family Occupation: retired Retired from [employer]. Patient retired within the past year. He lives with his . His father this year. Review of Systems A complete review of systems was performed. Pertinent positives are noted above. All other systems are negative. Physical Exam Date Time Temp Pulse Resp B/P (MAP) Pulse Ox O2 Delivery O2 Flow Rate FiO2 08/03/17 08:02 36.7 87 19 143/84 (103) 98 Room Air 08/03/17 08:00 Room Air 08/03/17 04:02 Room Air 08/03/17 03:20 36.8 88 20 142/82 (102) 97 Room Air 08/03/17 00:14 Room Air 08/02/17 23:07 36.4 77 20 146/77 (100) 99 Room Air 08/02/17 20:00 Room Air 08/02/17 19:40 36.7 82 18 150/79 100 Room Air 08/02/17 19:31 36.7 83 18 141/76 99 08/02/17 19:28 141/76 99 Room Air 08/02/17 18:00 83 18 152/56 99 Room Air 08/02/17 15:43 87 18 141/75 100 08/02/17 14:26 36.7 96 20 128/70 97 Room Air General Appearance: WD/WN, no apparent distress Head: normocephalic, atraumatic Eyes: normal inspection, sclerae normal ENT: normal ENT inspection, pharynx normal (oral mucosa slightly dry) Neck: supple, no JVD Respiratory/Chest: lungs clear, no respiratory distress, no accessory muscle use Cardiovascular: regular rate, rhythm, no gallop, no murmur Abdomen/GI: non tender, soft Extremities/Musculoskelatal: normal inspection, no pedal edema Neurologic/Psych: alert, oriented x 3 Laboratory Results Last 24 Hours Test 08/02/17 14:50 08/02/17 16:15 08/03/17 05:26 08/03/17 11:26 White Blood Count 5.15 K/uL 5.31 K/uL Red Blood Count 3.79 M/uL 3.92 M/uL Hemoglobin 11.0 g/dL 11.0 g/dL Hematocrit 30.1 % 31.2 % Mean Corpuscular Volume 79.4 fL 79.6 fL Mean Corpuscular Hemoglobin 29.0 pg 28.1 pg Mean Corpuscular Hemoglobin Concent 36.5 g/dl 35.3 g/dl Platelet Count 183 K/uL 181 K/uL Mean Platelet Volume 8.4 fL 8.4 fL Neutrophils (%) (Auto) 55.4 % Lymphocytes (%) (Auto) 23.1 % Monocytes (%) (Auto) 15.7 % Eosinophils (%) (Auto) 5.2 % Basophils (%) (Auto) 0.4 % Neutrophils # (Auto) 2.85 K/uL Lymphocytes # (Auto) 1.19 K/uL Monocytes # (Auto) 0.81 K/uL Eosinophils # (Auto) 0.27 K/uL Basophils # (Auto) 0.02 K/uL RDW Standard Deviation 37.7 fL 36.9 fL RDW Coefficient of Variation 13.0 % 12.6 % Immature Granulocyte % (Auto) 0.2 % Immature Granulocyte # (Auto) 0.01 K/uL Prothrombin Time 11.2 SECONDS Prothromb Time International Ratio 1.0 Activated Partial Thromboplast Time 32.8 SECONDS Partial Thromboplastin Ratio 1.3 Sodium Level 124 mmol/L 123 mmol/L Potassium Level 4.6 mmol/L 4.2 mmol/L Chloride Level 90 mmol/L 91 mmol/L Carbon Dioxide Level 28 mmol/L 27 mmol/L Anion Gap 6.0 mmol/L 5.0 mmol/L Blood Urea Nitrogen 12 mg/dl 11 mg/dl Creatinine 0.82 mg/dl 0.65 mg/dl Est Creatinine Clear Calc Drug Dose 94.6 ml/min 119.4 ml/min Estimated GFR () 110.6 121.7 Estimated GFR (Non- 95.4 105.0 BUN/Creatinine Ratio 14.9 17.5 Random Glucose 98 mg/dl 65 mg/dl Calcium Level 8.6 mg/dl 8.3 mg/dl Magnesium Level 1.8 mg/dl Iron Level 54 mcg/dl Total Iron Binding Capacity 298 mcg/dl Transferrin 233 mg/dl Transferrin % Saturation 17 % Ferritin 31.1 ng/ml Total Bilirubin 1.1 mg/dl Direct Bilirubin 0.2 mg/dl Aspartate Amino Transf (AST/SGOT) 24 U/L Alanine Aminotransferase (ALT/SGPT) 20 U/L Alkaline Phosphatase 58 U/L Total Creatine Kinase 183 U/L Total Protein 6.6 gm/dl Albumin 3.3 gm/dl Lipase 315 U/L Urine Color YELLOW Urine Appearance CLEAR Urine pH 6.5 Urine Specific [place] 1.021 Urine Protein 2+ Urine Glucose (UA) NEG Urine Ketones NEG Urine Occult Blood 2+ Urine Nitrite NEG Urine Bilirubin NEG Urine Urobilinogen NEG Urine Leukocyte Esterase NEG Urine WBC (Auto) 0 /hpf Urine RBC (Auto) 10-30 /hpf Urine Hyaline Casts (Auto) 0 /lpf Urine Epithelial Cells (Auto) 0-5 /lpf Urine Bacteria (Auto) NEG Impression (1) Hyponatremia (2) Anemia Mr. Ha Huitron is a 61-year-old male with a history of hyponatremia previously attributed to SIADH potentially related to SSRI use. He was admitted with leg cramps and fatigue. Symptoms are consistent with prior episodes of dysnatremia. He has evidence of chronic hyponatremia with a serum sodium of 130 mmol/L in April. Serum sodium on admission was 124. It was 123 this morning following gentle hydration with NSS. Volume status appears euvolemic to slightly hypovolemic. I have requested urine studies at this time. The patient and his felt comfortable with stopping Lexapro. He had been considering stopping the medication. He is not confident that he would be able to tolerate oral NaCl tablets but would be willing to try. I would favor this over use of a vaptan but decision on management can be made based on repeat laboratory studies. I would also avoid hypertonic fluids necessitating CVC. 1.5% saline would be a consideration but 1 L would only be expected to raise serum sodium 3 mmol/L. I would like to increase serum sodium to approximately 130 mmol/L over the next 24 hours. Recommendations -- Check urine osmolality, random Carlos and UK+ -- Document I/O's -- Restrict oral free water intake to 1.5 L -- Check repeat metabolic profile at this time -- Pending review of urine studies and repeat metabolic profile start oral NaCl vs. 1.5% saline vs. vaptan -- Stop Lexapro -- Monitor serial serum sodium q 6 hours -- Repeat urine studies tomorrow AM or as needed based on labs -- Check TSH with next set of blood work
[2017-08-03 12:30] VITALS: BP 125/82; PULSE 76
[2017-08-03] MEDS: ASCORBIC ACID 500 MG TAB PO SCH (12:31)
[2017-08-03 12:59] LABS: BUN/CREATININE RATIO 18.5 (10-20); CALCIUM 8.2 mg/dl (8.5-10.1); CREATININE 0.64 mg/dl (0.60-1.40); PHOSPHORUS 2.8 mg/dl (2.5-4.9); THYROID STIMULATING HORMONE 3.51 uIu/ml (0.300-4.500)
[2017-08-03] MEDS ORDERED: SODIUM CHLORIDE 1 GM TAB PO ONE (14:17)
[2017-08-03 14:52] VITALS: BP 127/78; PULSE 82; TEMP 36.5; O2SAT 98
[2017-08-03 15:42] LABS: BUN/CREATININE RATIO 18.3 (10-20); CALCIUM 8.2 mg/dl (8.5-10.1); CREATININE 0.78 mg/dl (0.60-1.40); POTASSIUM 4.4 mmol/L (3.5-5.1)
--- NOTE | 2017-08-03 15:44 | Progress Note ---
Subjective Date of Service: Aug 03, 2017. Subjective Pt evaluation today including: conversation w/ patient, conversation w/ family , physical exam, lab review, conversation w/ insurance healthcare consultant, review of inpatient medication list Pain: no pain PO Intake: sub optimal Voiding: no voiding problems patient still feels weak today and with a headache no other complaints reviewed lab work, Na 123, Uosm inappropriately high suggesting SIADH appreciate consultation and recommendations from Dr. Reed Problem List Medical Problems: (1) Clostridium difficile infection Status: Acute (2) Cystitis Status: Acute (3) Fever Status: Acute (4) Hyponatremia Status: Acute (5) Left flank pain Status: Acute (6) Muscle cramping Status: Acute (7) Perirectal fistula Status: Acute (8) Urinary frequency Status: Acute Review of Systems Constitutional: + weakness, + fatigue, + problem reported (headache) Abdomen: + nausea (with taking sodium tablets) All Other Systems: Reviewed and Negative Medications Current Inpatient Medications Medications (Trade) Dose Ordered Sig/Valarie Route Start Time Stop Time Status Last Admin Dose Admin Enoxaparin Sodium (Lovenox Inj) 40 mg Q24H SC 08/02/17 21:00 09/01/17 20:59 Acetaminophen (Tylenol Tab) 650 mg Q4H PRN PO 08/02/17 18:15 09/01/17 18:14 Al Hydrox/Mg Hydrox/Simethicone (Maalox Max Susp) 15 ml Q4H PRN PO 08/02/17 18:15 09/01/17 18:14 Magnesium Hydroxide (Milk Of Magnesia Susp) 30 ml Q12H PRN PO 08/02/17 18:15 09/01/17 18:14 Ondansetron HCl (Zofran Inj) 4 mg Q6H PRN IV 08/02/17 18:15 09/01/17 18:14 Nitroglycerin (Nitrostat Tab) 0.4 mg UD PRN SL 08/02/17 18:15 09/01/17 18:14 Polyethylene (Miralax Powder Packet) 17 gm DAILY PRN PO 08/02/17 18:15 09/01/17 18:14 Ascorbic Acid (Vitamin C Tab) 500 mg DAILY@1200 PO 08/03/17 12:00 09/02/17 11:59 08/03/17 12:31 500 MG Escitalopram Oxalate (Lexapro Tab) 10 mg HS PO 08/02/17 21:00 09/01/17 20:59 Future Hold 08/02/17 21:40 10 MG Gabapentin (Neurontin Cap) 100 mg HS PO 08/02/17 21:00 09/01/17 20:59 08/02/17 21:41 100 MG Levothyroxine Sodium (Synthroid Tab) 50 mcg DAILYBB PO 08/03/17 06:00 09/02/17 05:59 08/03/17 06:12 50 MCG Multivitamins/ Minerals (Multivitamin W/ Minerals Tab) 1 tab DAILY PO 08/03/17 09:00 09/02/17 08:59 08/03/17 09:13 1 TAB Bacitracin (Bacitracin Oint) 1 appln TID PRN TOP 08/02/17 18:15 09/01/17 18:14 Ondansetron HCl (Zofran Tab) 4 mg TID PRN PO 08/02/17 18:15 09/01/17 18:14 Pantoprazole Sodium (Protonix Tab) 40 mg DAILY PO 08/03/17 09:00 09/02/17 08:59 08/03/17 09:13 40 MG Sodium Chloride (Sodium Chloride Tab) 1 gm TID PO 08/03/17 20:00 09/02/17 19:59 Objective Vital Signs Date Time Temp Pulse Resp B/P (MAP) Pulse Ox O2 Delivery O2 Flow Rate FiO2 08/03/17 14:52 36.5 82 20 127/78 (94) 98 Room Air 08/03/17 12:30 76 125/82 (96) 08/03/17 11:57 36.3 85 20 144/81 (102) 98 Room Air 08/03/17 08:02 36.7 87 19 143/84 (103) 98 Room Air 08/03/17 08:00 Room Air 08/03/17 04:02 Room Air 08/03/17 03:20 36.8 88 20 142/82 (102) 97 Room Air 08/03/17 00:14 Room Air 08/02/17 23:07 36.4 77 20 146/77 (100) 99 Room Air 08/02/17 20:00 Room Air 08/02/17 19:40 36.7 82 18 150/79 100 Room Air 08/02/17 19:31 36.7 83 18 141/76 99 08/02/17 19:28 141/76 99 Room Air 08/02/17 18:00 83 18 152/56 99 Room Air 08/02/17 15:43 87 18 141/75 100 Physical Exam General Appearance: WD/WN, no apparent distress Eyes: normal inspection, EOMI, sclerae normal ENT: normal ENT inspection, hearing grossly normal, pharynx normal Neck: supple, no adenopathy, no JVD, trachea midline Respiratory/Chest: chest non-tender, lungs clear, normal breath sounds, no respiratory distress, no accessory muscle use Cardiovascular: regular rate, rhythm, no edema, no gallop, no JVD, no murmur Abdomen: normal bowel sounds, non tender, soft, no organomegaly Extremities: normal range of motion, non-tender, normal inspection, no pedal edema, no calf tenderness, pelvis stable Neurologic/Psychiatric: scientist electronics II-XII nml as tested, no motor/sensory deficits, alert, normal mood/affect, oriented x 3 Skin: normal color, warm/dry, no rash Lymphatic: no adenopathy Laboratory Results Last 24 Hours Test 08/02/17 16:15 08/03/17 05:26 08/03/17 11:30 08/03/17 12:07 Urine Color YELLOW Urine Appearance CLEAR Urine pH 6.5 Urine Specific [place] 1.021 Urine Protein 2+ Urine Glucose (UA) NEG Urine Ketones NEG Urine Occult Blood 2+ Urine Nitrite NEG Urine Bilirubin NEG Urine Urobilinogen NEG Urine Leukocyte Esterase NEG Urine WBC (Auto) 0 /hpf Urine RBC (Auto) 10-30 /hpf Urine Hyaline Casts (Auto) 0 /lpf Urine Epithelial Cells (Auto) 0-5 /lpf Urine Bacteria (Auto) NEG White Blood Count 5.31 K/uL Red Blood Count 3.92 M/uL Hemoglobin 11.0 g/dL Hematocrit 31.2 % Mean Corpuscular Volume 79.6 fL Mean Corpuscular Hemoglobin 28.1 pg Mean Corpuscular Hemoglobin Concent 35.3 g/dl RDW Standard Deviation 36.9 fL RDW Coefficient of Variation 12.6 % Platelet Count 181 K/uL Mean Platelet Volume 8.4 fL Sodium Level 123 mmol/L 123 mmol/L Potassium Level 4.2 mmol/L 4.0 mmol/L Chloride Level 91 mmol/L 92 mmol/L Carbon Dioxide Level 27 mmol/L 24 mmol/L Anion Gap 5.0 mmol/L 7.0 mmol/L Blood Urea Nitrogen 11 mg/dl 12 mg/dl Creatinine 0.65 mg/dl 0.64 mg/dl Est Creatinine Clear Calc Drug Dose 119.4 ml/min 121.3 ml/min Estimated GFR () 121.7 122.5 Estimated GFR (Non- 105.0 105.7 BUN/Creatinine Ratio 17.5 18.5 Random Glucose 65 mg/dl 83 mg/dl Calcium Level 8.3 mg/dl 8.2 mg/dl Urine Osmolality 473 mOms/kg Urine Random Sodium 141 mEq/L Urine Random Potassium 21.7 mEq/L Phosphorus Level 2.8 mg/dl Albumin 3.3 gm/dl Thyroid Stimulating Hormone (TSH) 3.510 uIu/ml Test 08/03/17 15:03 Assessment and Plan Patient is a pleasant 61 y/o male, with PMHx of Crohn's disease, hyponatremia, chronic anemia, anxiety, RLS, and hypothyroidism, who presented to the ED because of worsening fatigue and bilateral lower extremity cramping x2 weeks. Hyponatremia: stable but not improving, ranging from 123-124 changed fluids to NSS this AM reviewed urine osm of 417, suggests SIADH appreciate recommendations from nephrology, fluid restrict, NaCl 1gm TID will see if he can tolerate, at home he has nausea/vomiting with NaCl tablets follow Na level Chronic anemia, due to iron deficiency ferritin low at 31, will treat with Venofer 100mg daily x 5 days was not tolerating PO iron at home perhaps he could be set up with routine iron infusions Hypothyroidism- TSH WNL in 05/11: Continue Synthroid 50 mcg daily Crohn's disease s/p ileectomy- in remission Anxiety: Continue Lexapro 10 mg HS RLS: Gabapentin 100 mg HS GI prophylaxis: Protonix 40 mg daily DVT prophylaxis: Lovenox SQ Code Status: LEVEL I, FULL Dispo: From home, lives w/ - no discharge needs anticipated transfer to medical floor today
[2017-08-03] MEDS: SODIUM CHLORIDE 1 GM TAB PO SCH (19:44)
[2017-08-03] MEDS: GABAPENTIN 100 MG CAP PO SCH (20:54)
[2017-08-03] MEDS: ENOXAPARIN 40 MG/0.4 ML SYR SC SCH (20:54)
[2017-08-03 22:56] VITALS: BP 134/77; PULSE 80; TEMP 37; O2SAT 98
[2017-08-04] MEDS: LEVOTHYROXINE 50 MCG TAB PO SCH (06:04)
[2017-08-04 06:11] LABS: HEMATOCRIT 31.4 % (42-52); MEAN CELL VOLUME 78.9 fL (80-100); MEAN CORPUSCULAR HEMOGLOBIN 28.6 pg (25-34); MEAN CORPUSCULAR HGB CONC 36.3 g/dl (32-36); MEAN PLATELET VOLUME 8.4 fL (7.4-10.4); PLATELET COUNT 170 K/uL (130-400); RED BLOOD COUNT 3.98 M/uL (4.7-6.1); WHITE BLOOD COUNT 4.74 K/uL (4.8-10.8)
[2017-08-04 06:52] LABS: BUN/CREATININE RATIO 17.2 (10-20); CALCIUM 8.2 mg/dl (8.5-10.1); CREATININE 0.68 mg/dl (0.60-1.40); POTASSIUM 4.2 mmol/L (3.5-5.1)
[2017-08-04 07:15] VITALS: BP 157/89; PULSE 101; TEMP 36.8; O2SAT 96
[2017-08-04] MEDS: CEROVITE ADV FORMULA TAB PO SCH (07:52)
[2017-08-04] MEDS: PANTOprazole SOD 40 MG TAB PO SCH (07:52)
[2017-08-04] MEDS: SODIUM CHLORIDE 1 GM TAB PO SCH ×3 (07:53→20:32)
--- NOTE | 2017-08-04 09:41 | Nephrology Progress Note ---
Nephrology Progress Note Date of Service Aug 04, 2017. Chief Complaint Hyponatremia Subjective No acute events overnight. Ha is feeling well this morning. Appetite is good. He is able to tolerate oral NaCl if he eats it slowly and takes with applesauce. Overall, he feels well. He was in the bathroom taking a shower this morning. Review of Systems A complete review of systems was performed. Pertinent positives are noted above. All other systems are negative. Vital Signs Last 8 Hrs Date Time Temp Pulse Resp B/P (MAP) Pulse Ox O2 Delivery O2 Flow Rate FiO2 08/04/17 07:15 36.8 101 20 157/89 (111) 96 Room Air Last Recorded Weight Weight (Kilograms): 71.900 Physical Exam General Appearance: WD/WN, no apparent distress Head: normocephalic, atraumatic Eyes: normal inspection, sclerae normal ENT: normal ENT inspection, pharynx normal Neck: supple, no JVD Respiratory/Chest: lungs clear, no respiratory distress, no accessory muscle use Cardiovascular: regular rate, rhythm, no gallop, no murmur Abdomen/GI: non tender, soft Extremities/Musculoskelatal: normal inspection, no pedal edema Neurologic/Psych: alert, oriented x 3 Family History FHx: diabetes FHx: gallbladder disease FHx: hypertension FHx: kidney disease Social History Smoking Status: Never smoker Drug Use: none Marital Status: Housing Status: lives with family Occupation: retired Retired from [employer]. Patient retired within the past year. He lives with his . His father this year. Laboratory Results Past 24 Hours 08/04/17 05:33 08/03/17 12:07 08/03/17 15:03 08/04/17 05:33 Test 08/03/17 11:30 08/03/17 12:07 08/03/17 15:03 08/03/17 16:42 Urine Osmolality 473 mOms/kg (500-800) Urine Random Sodium 141 mEq/L Urine Random Potassium 21.7 mEq/L Anion Gap 7.0 mmol/L (3-11) 6.0 mmol/L (3-11) Est Creatinine Clear Calc Drug Dose 121.3 ml/min 99.5 ml/min Estimated GFR () 122.5 112.9 Estimated GFR (Non- 105.7 97.4 BUN/Creatinine Ratio 18.5 (10-20) 18.3 (10-20) Calcium Level 8.2 mg/dl (8.5-10.1) 8.2 mg/dl (8.5-10.1) Phosphorus Level 2.8 mg/dl (2.5-4.9) Albumin 3.3 gm/dl (3.4-5.0) Thyroid Stimulating Hormone (TSH) 3.510 uIu/ml (0.300-4.500) Bedside Glucose 91 mg/dl (70-99) Test 08/04/17 05:33 Red Blood Count 3.98 M/uL (4.7-6.1) Mean Corpuscular Volume 78.9 fL (80-100) Mean Corpuscular Hemoglobin 28.6 pg (25-34) Mean Corpuscular Hemoglobin Concent 36.3 g/dl (32-36) RDW Standard Deviation 37.2 fL (36.4-46.3) RDW Coefficient of Variation 12.8 % (11.5-14.5) Mean Platelet Volume 8.4 fL (7.4-10.4) Anion Gap 6.0 mmol/L (3-11) Est Creatinine Clear Calc Drug Dose 114.1 ml/min Estimated GFR () 119.5 Estimated GFR (Non- 103.1 BUN/Creatinine Ratio 17.2 (10-20) Calcium Level 8.2 mg/dl (8.5-10.1) Allergies Coded Allergies: Metronidazole (Verified Allergy, Unknown, NUMBNESS - IV FORMULATION, ) Zolpidem (Verified Allergy, Unknown, UNKNOWN, 05/15/17) CAUSED HALLUCINATIONS Prednisone (Verified Adverse Reaction, Severe, high blood sugar, 08/02/17) Pork (Verified Adverse Reaction, Intermediate, GI SYMPTOMS, 05/15/17) Aspirin (Verified Adverse Reaction, Mild, Stomach pain, 05/15/17) Pork (Porcine) Protein (Unverified Adverse Reaction, Mild, GI SYMPTOMS, ) Ibuprofen (Verified Adverse Reaction, Unknown, GI UPSET, 05/15/17) Medications Current Inpatient Medications Medications (Trade) Dose Ordered Sig/Valarie Route Start Time Stop Time Status Last Admin Dose Admin Enoxaparin Sodium (Lovenox Inj) 40 mg Q24H SC 08/02/17 21:00 09/01/17 20:59 08/03/17 20:54 40 MG Acetaminophen (Tylenol Tab) 650 mg Q4H PRN PO 08/02/17 18:15 09/01/17 18:14 Al Hydrox/Mg Hydrox/Simethicone (Maalox Max Susp) 15 ml Q4H PRN PO 08/02/17 18:15 09/01/17 18:14 Magnesium Hydroxide (Milk Of Magnesia Susp) 30 ml Q12H PRN PO 08/02/17 18:15 09/01/17 18:14 Ondansetron HCl (Zofran Inj) 4 mg Q6H PRN IV 08/02/17 18:15 09/01/17 18:14 Nitroglycerin (Nitrostat Tab) 0.4 mg UD PRN SL 08/02/17 18:15 09/01/17 18:14 Polyethylene (Miralax Powder Packet) 17 gm DAILY PRN PO 08/02/17 18:15 09/01/17 18:14 Ascorbic Acid (Vitamin C Tab) 500 mg DAILY@1200 PO 08/03/17 12:00 09/02/17 11:59 08/03/17 12:31 500 MG Escitalopram Oxalate (Lexapro Tab) 10 mg HS PO 08/02/17 21:00 09/01/17 20:59 Future Hold 08/02/17 21:40 10 MG Gabapentin (Neurontin Cap) 100 mg HS PO 08/02/17 21:00 09/01/17 20:59 08/03/17 20:54 100 MG Levothyroxine Sodium (Synthroid Tab) 50 mcg DAILYBB PO 08/03/17 06:00 09/02/17 05:59 08/04/17 06:04 50 MCG Multivitamins/ Minerals (Multivitamin W/ Minerals Tab) 1 tab DAILY PO 08/03/17 09:00 09/02/17 08:59 08/04/17 07:52 1 TAB Bacitracin (Bacitracin Oint) 1 appln TID PRN TOP 08/02/17 18:15 09/01/17 18:14 Ondansetron HCl (Zofran Tab) 4 mg TID PRN PO 08/02/17 18:15 09/01/17 18:14 Pantoprazole Sodium (Protonix Tab) 40 mg DAILY PO 08/03/17 09:00 09/02/17 08:59 08/04/17 07:52 40 MG Sodium Chloride (Sodium Chloride Tab) 1 gm TID PO 08/03/17 20:00 09/02/17 19:59 08/04/17 07:53 1 GM Impression (1) Hyponatremia (2) Anemia Mr. 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 He was admitted with leg cramps and fatigue. Symptoms are consistent with prior episodes of dysnatremia. He has chronic hyponatremia with a serum sodium of 130 mmol/L in April. Serum sodium improved from 123 to 125 with 2 grams of oral NaCl as well as a 1 L fluid restriction. Volume status appears euvolemic. Urine osmolality elevated at >400. Repeat urine studies are pending this morning. Lexapro has been held. Recommendations Hyponatremia: -- Check urine osmolality, random Carlos and UK+ again this morning -- Document I/O's -- Restrict oral free water intake to 1.5 L/d -- Check repeat metabolic profile this afternoon -- Continue oral NaCl 1 gm TID Depression/MARIELLE: -- Lexapro has been held at patient's consent Hypertension: -- BP acceptable -- Continue to monitor Hypothyroidism: -- TSH checked and found to be acceptable
[2017-08-04] MEDS: ASCORBIC ACID 500 MG TAB PO SCH (12:12)
[2017-08-04 14:35] VITALS: BP 129/74; PULSE 85; TEMP 36.9; O2SAT 97
[2017-08-04 14:46] LABS: BUN/CREATININE RATIO 14.5 (10-20); CALCIUM 8.8 mg/dl (8.5-10.1); POTASSIUM 4.3 mmol/L (3.5-5.1)
--- NOTE | 2017-08-04 16:11 | Progress Note ---
Subjective Date of Service: Aug 04, 2017. Subjective Pt evaluation today including: conversation w/ patient, conversation w/ family (), physical exam, lab review, conversation w/ net developer consultant, review of inpatient medication list Pain: no pain PO Intake: improved Voiding: no voiding problems tolerating NaCl tablets with applesauce unfortunately, Na not coming up as high as liked, stable at 125 urine osmolality still inappropriately high at [address] Reed Problem List Medical Problems: (1) Clostridium difficile infection Status: Acute (2) Cystitis Status: Acute (3) Fever Status: Acute (4) Hyponatremia Status: Acute (5) Left flank pain Status: Acute (6) Muscle cramping Status: Acute (7) Perirectal fistula Status: Acute (8) Urinary frequency Status: Acute Review of Systems Musculoskeletal: + muscle pain (cramps in legs) All Other Systems: Reviewed and Negative Medications Current Inpatient Medications Medications (Trade) Dose Ordered Sig/Valarie Route Start Time Stop Time Status Last Admin Dose Admin Enoxaparin Sodium (Lovenox Inj) 40 mg Q24H SC 08/02/17 21:00 09/01/17 20:59 08/03/17 20:54 40 MG Acetaminophen (Tylenol Tab) 650 mg Q4H PRN PO 08/02/17 18:15 09/01/17 18:14 Al Hydrox/Mg Hydrox/Simethicone (Maalox Max Susp) 15 ml Q4H PRN PO 08/02/17 18:15 09/01/17 18:14 Magnesium Hydroxide (Milk Of Magnesia Susp) 30 ml Q12H PRN PO 08/02/17 18:15 09/01/17 18:14 Ondansetron HCl (Zofran Inj) 4 mg Q6H PRN IV 08/02/17 18:15 09/01/17 18:14 Nitroglycerin (Nitrostat Tab) 0.4 mg UD PRN SL 08/02/17 18:15 09/01/17 18:14 Polyethylene (Miralax Powder Packet) 17 gm DAILY PRN PO 08/02/17 18:15 09/01/17 18:14 Ascorbic Acid (Vitamin C Tab) 500 mg DAILY@1200 PO 08/03/17 12:00 09/02/17 11:59 08/04/17 12:12 500 MG Escitalopram Oxalate (Lexapro Tab) 10 mg HS PO 08/02/17 21:00 09/01/17 20:59 Future Hold 08/02/17 21:40 10 MG Gabapentin (Neurontin Cap) 100 mg HS PO 08/02/17 21:00 09/01/17 20:59 08/03/17 20:54 100 MG Levothyroxine Sodium (Synthroid Tab) 50 mcg DAILYBB PO 08/03/17 06:00 09/02/17 05:59 08/04/17 06:04 50 MCG Multivitamins/ Minerals (Multivitamin W/ Minerals Tab) 1 tab DAILY PO 08/03/17 09:00 09/02/17 08:59 08/04/17 07:52 1 TAB Bacitracin (Bacitracin Oint) 1 appln TID PRN TOP 08/02/17 18:15 09/01/17 18:14 Ondansetron HCl (Zofran Tab) 4 mg TID PRN PO 08/02/17 18:15 09/01/17 18:14 Pantoprazole Sodium (Protonix Tab) 40 mg DAILY PO 08/03/17 09:00 09/02/17 08:59 08/04/17 07:52 40 MG Iron Sucrose 200 mg/Sodium Chloride 110 ml @ 220 mls/hr DAILY@0800 IV 08/05/17 08:00 08/08/17 08:29 Sodium Chloride (Sodium Chloride Tab) 2 gm TID PO 08/04/17 20:00 09/02/17 19:59 Objective Vital Signs Date Time Temp Pulse Resp B/P (MAP) Pulse Ox O2 Delivery O2 Flow Rate FiO2 08/04/17 15:20 Room Air 08/04/17 14:35 36.9 85 20 129/74 (92) 97 Room Air 08/04/17 08:30 Room Air 08/04/17 07:15 36.8 101 20 157/89 (111) 96 Room Air 08/04/17 00:00 Room Air 08/03/17 22:56 37.0 80 16 134/77 (96) 98 Room Air 08/03/17 20:00 Room Air Physical Exam General Appearance: WD/WN, no apparent distress Eyes: normal inspection, EOMI, sclerae normal ENT: normal ENT inspection, hearing grossly normal, pharynx normal Neck: supple, no adenopathy, no JVD, trachea midline Respiratory/Chest: chest non-tender, lungs clear, normal breath sounds, no respiratory distress, no accessory muscle use Cardiovascular: regular rate, rhythm, no edema, no gallop, no JVD, no murmur Abdomen: normal bowel sounds, non tender, soft, no organomegaly Extremities: normal range of motion, non-tender, normal inspection, no pedal edema, no calf tenderness, pelvis stable Neurologic/Psychiatric: bell tier II-XII nml as tested, no motor/sensory deficits, alert, normal mood/affect, oriented x 3 Skin: normal color, warm/dry, no rash Lymphatic: no adenopathy Laboratory Results Last 24 Hours Test 08/03/17 16:42 08/04/17 05:33 08/04/17 11:05 08/04/17 14:05 Bedside Glucose 91 mg/dl White Blood Count 4.74 K/uL Red Blood Count 3.98 M/uL Hemoglobin 11.4 g/dL Hematocrit 31.4 % Mean Corpuscular Volume 78.9 fL Mean Corpuscular Hemoglobin 28.6 pg Mean Corpuscular Hemoglobin Concent 36.3 g/dl RDW Standard Deviation 37.2 fL RDW Coefficient of Variation 12.8 % Platelet Count 170 K/uL Mean Platelet Volume 8.4 fL Sodium Level 125 mmol/L 125 mmol/L Potassium Level 4.2 mmol/L 4.3 mmol/L Chloride Level 93 mmol/L 93 mmol/L Carbon Dioxide Level 26 mmol/L 27 mmol/L Anion Gap 6.0 mmol/L 5.0 mmol/L Blood Urea Nitrogen 12 mg/dl 15 mg/dl Creatinine 0.68 mg/dl 1.00 mg/dl Est Creatinine Clear Calc Drug Dose 114.1 ml/min 77.6 ml/min Estimated GFR () 119.5 93.7 Estimated GFR (Non- 103.1 80.9 BUN/Creatinine Ratio 17.2 14.5 Random Glucose 65 mg/dl 76 mg/dl Calcium Level 8.2 mg/dl 8.8 mg/dl Urine Osmolality 581 mOms/kg Urine Random Sodium 76 mEq/L Urine Random Potassium 44.6 mEq/L Assessment and Plan Patient is a pleasant 61 y/o male, with PMHx of Crohn's disease, hyponatremia, chronic anemia, anxiety, RLS, and hypothyroidism, who presented to the ED because of worsening fatigue and bilateral lower extremity cramping x2 weeks. Hyponatremia: stable but slow to improve, only up to 125 today no further IV fluids reviewed urine osm of 417, suggests SIADH appreciate recommendations from nephrology, fluid restrict, NaCl 1gm TID may need to consider Lasix to stop concentrating urine remain hospitalized overnight Chronic anemia, due to iron deficiency ferritin low at 31, will treat with Venofer for 5 days total, today is day was not tolerating PO iron at home can discuss with Dr. Sol getting set up for scheduled infusions as outpatient Hypothyroidism- TSH WNL in 05/11: Continue Synthroid 50 mcg daily Crohn's disease s/p ileectomy- in remission Anxiety: stop Lexapro due to hyponatremia RLS: Gabapentin 100 mg HS GI prophylaxis: Protonix 40 mg daily DVT prophylaxis: Lovenox SQ Code Status: LEVEL I, FULL Dispo: From home, lives w/ - no discharge needs anticipated possible d/c home tomorrow if sodium improves enough, discuss with nephrology
[2017-08-04] MEDS: ACETAMINOPHEN 325 MG TAB PO PRN (20:31)
[2017-08-04] MEDS: GABAPENTIN 100 MG CAP PO SCH (20:32)
[2017-08-04] MEDS: ENOXAPARIN 40 MG/0.4 ML SYR SC SCH (20:32)
[2017-08-04 22:48] VITALS: BP 105/66; PULSE 88; TEMP 36.7; O2SAT 97
[2017-08-05 05:39] LABS: HEMATOCRIT 29.9 % (42-52); MEAN CELL VOLUME 80.6 fL (80-100); MEAN CORPUSCULAR HEMOGLOBIN 29.4 pg (25-34); MEAN CORPUSCULAR HGB CONC 36.5 g/dl (32-36); MEAN PLATELET VOLUME 8.1 fL (7.4-10.4); PLATELET COUNT 161 K/uL (130-400); RED BLOOD COUNT 3.71 M/uL (4.7-6.1); WHITE BLOOD COUNT 5.54 K/uL (4.8-10.8)
[2017-08-05 06:03] LABS: BUN/CREATININE RATIO 19.6 (10-20); CALCIUM 8.4 mg/dl (8.5-10.1); CREATININE 0.76 mg/dl (0.60-1.40); POTASSIUM 4.5 mmol/L (3.5-5.1)
[2017-08-05] MEDS: LEVOTHYROXINE 50 MCG TAB PO SCH (06:33)
[2017-08-05 07:09] VITALS: BP 158/84; PULSE 109; TEMP 36.9; O2SAT 98
[2017-08-05] MEDS ORDERED: IRON SUCROSE INJ 100 MG in SODIUM CHLORIDE 0.9% 100ML 100 ML IV SCH (08:00)
[2017-08-05] MEDS: SODIUM CHLORIDE 1 GM TAB PO SCH ×3 (08:21→20:42)
[2017-08-05] MEDS: CEROVITE ADV FORMULA TAB PO SCH (08:21)
[2017-08-05] MEDS: PANTOprazole SOD 40 MG TAB PO SCH (08:22)
[2017-08-05] MEDS: IRON SUCROSE INJ 200 MG in SODIUM CHLORIDE 0.9% 100ML 100 ML IV SCH (09:35)
[2017-08-05] MEDS ORDERED: FUROSEMIDE 20 MG TAB PO ONE (09:43)
--- NOTE | 2017-08-05 10:37 | Nephrology Progress Note ---
Nephrology Progress Note Date of Service Aug 05, 2017. Chief Complaint Hyponatremia Subjective Mr. Huitron was seen & examined in his hospital room this morning. He is taking NaCl 1 g po TID and tolerating this well without GI side effects. Mr. Huitron reports improved muscle strength. He voices no new medical concerns at this time. Review of Systems Constitutional: No fever Cardiovascular: No chest pain Respiratory: No dyspnea at rest Abdomen: No pain, No nausea, No vomiting Genitourinary - Male: No dysuria Extremities: No leg edema A complete review of systems was performed. Pertinent positives are noted above. All other systems are negative. Vital Signs Last 8 Hrs Date Time Temp Pulse Resp B/P (MAP) Pulse Ox O2 Delivery O2 Flow Rate FiO2 08/05/17 08:30 Room Air 08/05/17 07:09 36.9 109 20 158/84 (108) 98 Room Air Last Recorded Weight Weight (Kilograms): 71.900 Physical Exam General Appearance: no apparent distress Head: normocephalic, atraumatic Eyes: PERRL Neck: no adenopathy Respiratory/Chest: lungs clear, no respiratory distress Cardiovascular: regular rate, rhythm Abdomen/GI: normal bowel sounds, non tender, soft Extremities/Musculoskelatal: no calf tenderness, no pedal edema Neurologic/Psych: alert, oriented x 3 Family History FHx: diabetes FHx: gallbladder disease FHx: hypertension FHx: kidney disease Social History Smoking Status: Never smoker Drug Use: none Marital Status: Housing Status: lives with family Occupation: retired Retired from [employer]. Patient retired within the past year. He lives with his . His father this year. Laboratory Results Past 24 Hours 08/05/17 05:21 08/04/17 14:05 08/05/17 05:21 Test 08/04/17 11:05 08/04/17 14:05 08/05/17 05:21 Urine Osmolality 581 mOms/kg (500-800) Urine Random Sodium 76 mEq/L Urine Random Potassium 44.6 mEq/L Anion Gap 5.0 mmol/L (3-11) 4.0 mmol/L (3-11) Est Creatinine Clear Calc Drug Dose 77.6 ml/min 102.1 ml/min Estimated GFR () 93.7 114.1 Estimated GFR (Non- 80.9 98.5 BUN/Creatinine Ratio 14.5 (10-20) 19.6 (10-20) Calcium Level 8.8 mg/dl (8.5-10.1) 8.4 mg/dl (8.5-10.1) Red Blood Count 3.71 M/uL (4.7-6.1) Mean Corpuscular Volume 80.6 fL (80-100) Mean Corpuscular Hemoglobin 29.4 pg (25-34) Mean Corpuscular Hemoglobin Concent 36.5 g/dl (32-36) RDW Standard Deviation 37.7 fL (36.4-46.3) RDW Coefficient of Variation 12.9 % (11.5-14.5) Mean Platelet Volume 8.1 fL (7.4-10.4) Allergies Coded Allergies: Metronidazole (Verified Allergy, Unknown, NUMBNESS - IV FORMULATION, ) Zolpidem (Verified Allergy, Unknown, UNKNOWN, 05/15/17) CAUSED HALLUCINATIONS Prednisone (Verified Adverse Reaction, Severe, high blood sugar, 08/02/17) Pork (Verified Adverse Reaction, Intermediate, GI SYMPTOMS, 05/15/17) Aspirin (Verified Adverse Reaction, Mild, Stomach pain, 05/15/17) Pork (Porcine) Protein (Unverified Adverse Reaction, Mild, GI SYMPTOMS, ) Ibuprofen (Verified Adverse Reaction, Unknown, GI UPSET, 05/15/17) Medications Current Inpatient Medications Medications (Trade) Dose Ordered Sig/Valarie Route Start Time Stop Time Status Last Admin Dose Admin Enoxaparin Sodium (Lovenox Inj) 40 mg Q24H SC 08/02/17 21:00 09/01/17 20:59 08/04/17 20:32 40 MG Acetaminophen (Tylenol Tab) 650 mg Q4H PRN PO 08/02/17 18:15 09/01/17 18:14 08/04/17 20:31 650 MG Al Hydrox/Mg Hydrox/Simethicone (Maalox Max Susp) 15 ml Q4H PRN PO 08/02/17 18:15 09/01/17 18:14 Magnesium Hydroxide (Milk Of Magnesia Susp) 30 ml Q12H PRN PO 08/02/17 18:15 09/01/17 18:14 Ondansetron HCl (Zofran Inj) 4 mg Q6H PRN IV 08/02/17 18:15 09/01/17 18:14 Nitroglycerin (Nitrostat Tab) 0.4 mg UD PRN SL 08/02/17 18:15 09/01/17 18:14 Polyethylene (Miralax Powder Packet) 17 gm DAILY PRN PO 08/02/17 18:15 09/01/17 18:14 Ascorbic Acid (Vitamin C Tab) 500 mg DAILY@1200 PO 08/03/17 12:00 09/02/17 11:59 08/04/17 12:12 500 MG Escitalopram Oxalate (Lexapro Tab) 10 mg HS PO 08/02/17 21:00 09/01/17 20:59 Future Hold 08/02/17 21:40 10 MG Gabapentin (Neurontin Cap) 100 mg HS PO 08/02/17 21:00 09/01/17 20:59 08/04/17 20:32 100 MG Levothyroxine Sodium (Synthroid Tab) 50 mcg DAILYBB PO 08/03/17 06:00 09/02/17 05:59 08/05/17 06:33 50 MCG Multivitamins/ Minerals (Multivitamin W/ Minerals Tab) 1 tab DAILY PO 08/03/17 09:00 09/02/17 08:59 08/05/17 08:21 1 TAB Bacitracin (Bacitracin Oint) 1 appln TID PRN TOP 08/02/17 18:15 09/01/17 18:14 Ondansetron HCl (Zofran Tab) 4 mg TID PRN PO 08/02/17 18:15 09/01/17 18:14 Pantoprazole Sodium (Protonix Tab) 40 mg DAILY PO 08/03/17 09:00 09/02/17 08:59 08/05/17 08:22 40 MG Iron Sucrose 200 mg/Sodium Chloride 110 ml @ 220 mls/hr DAILY@0800 IV 08/05/17 08:00 08/08/17 08:29 08/05/17 09:35 220 MLS/HR Sodium Chloride (Sodium Chloride Tab) 2 gm TID PO 08/04/17 20:00 09/02/17 19:59 08/05/17 08:21 2 GM Furosemide (Lasix Tab) 20 mg QAM PO 08/06/17 08:00 10/12/17 07:59 Impression (1) Hyponatremia (2) Anemia Mr. 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 He was admitted with leg cramps and fatigue. Symptoms are consistent with prior episodes of dysnatremia. He has chronic hyponatremia with a serum sodium of 130 mmol/L in April. Serum sodium improved from 123 to 125 with 2 grams of oral NaCl as well as a 1 L fluid restriction. Volume status appears euvolemic. Urine osmolality elevated at >400. Repeat urine studies are pending this morning. Lexapro has been held. Recommendations HYPONATREMIA: -- Check urine osmolality tomorrow morning -- Document I/O's -- Restrict oral free water intake to 1.5 L/d -- Check repeat metabolic profile this afternoon -- Continue oral NaCl 1 gm TID -- Start Furosemide 20 mg each morning to lower urine osmolality HTN: -- BP acceptable -- Continue to monitor ENDO: -- TSH checked and found to be acceptable PSYCH: -- Lexapro has been held at patient's consent
[2017-08-05] MEDS: ASCORBIC ACID 500 MG TAB PO SCH (11:57)
[2017-08-05 13:30] LABS: BUN/CREATININE RATIO 15.5 (10-20); CALCIUM 8.5 mg/dl (8.5-10.1); CREATININE 0.91 mg/dl (0.60-1.40); POTASSIUM 4.2 mmol/L (3.5-5.1)
[2017-08-05 14:52] VITALS: BP 102/64; PULSE 88; TEMP 37.1; O2SAT 98
--- NOTE | 2017-08-05 14:56 | Progress Note ---
Subjective Date of Service: Aug 05, 2017. Subjective Pt evaluation today including: conversation w/ patient, conversation w/ family Pt is feeling overall improved. Still with some LE spasm/cramping at times, but mostly resolved. Has been tolerating PO without issue. Has been tolerating salt tabs mixed with applesauce and mixing that with regular applesauce. Pt denies fever, SOB, chest pain, abd pain, n/v/c/d, LE swelling. Problem List Medical Problems: (1) Clostridium difficile infection Status: Acute (2) Cystitis Status: Acute (3) Fever Status: Acute (4) Hyponatremia Status: Acute (5) Left flank pain Status: Acute (6) Muscle cramping Status: Acute (7) Perirectal fistula Status: Acute (8) Urinary frequency Status: Acute Review of Systems All Other Systems: Reviewed and Negative Objective Vital Signs Date Time Temp Pulse Resp B/P (MAP) Pulse Ox O2 Delivery O2 Flow Rate FiO2 08/05/17 08:30 Room Air 08/05/17 07:09 36.9 109 20 158/84 (108) 98 Room Air 08/05/17 00:00 Room Air 08/04/17 22:48 36.7 88 18 105/66 (79) 97 Room Air 08/04/17 20:00 Room Air 08/04/17 15:20 Room Air Physical Exam General Appearance: WD/WN, no apparent distress Eyes: normal inspection, EOMI ENT: hearing grossly normal Neck: supple Respiratory/Chest: normal breath sounds, no respiratory distress Cardiovascular: regular rate, rhythm, no edema Abdomen: non tender, soft Extremities: non-tender, no pedal edema Neurologic/Psychiatric: alert, normal mood/affect Skin: normal color, warm/dry Laboratory Results Last 24 Hours Test 08/05/17 05:21 08/05/17 11:53 08/05/17 12:57 White Blood Count 5.54 K/uL Red Blood Count 3.71 M/uL Hemoglobin 10.9 g/dL Hematocrit 29.9 % Mean Corpuscular Volume 80.6 fL Mean Corpuscular Hemoglobin 29.4 pg Mean Corpuscular Hemoglobin Concent 36.5 g/dl RDW Standard Deviation 37.7 fL RDW Coefficient of Variation 12.9 % Platelet Count 161 K/uL Mean Platelet Volume 8.1 fL Sodium Level 129 mmol/L 128 mmol/L Potassium Level 4.5 mmol/L 4.2 mmol/L Chloride Level 96 mmol/L 95 mmol/L Carbon Dioxide Level 29 mmol/L 27 mmol/L Anion Gap 4.0 mmol/L 6.0 mmol/L Blood Urea Nitrogen 15 mg/dl 14 mg/dl Creatinine 0.76 mg/dl 0.91 mg/dl Est Creatinine Clear Calc Drug Dose 102.1 ml/min 85.3 ml/min Estimated GFR () 114.1 105.1 Estimated GFR (Non- 98.5 90.6 BUN/Creatinine Ratio 19.6 15.5 Random Glucose 68 mg/dl 89 mg/dl Calcium Level 8.4 mg/dl 8.5 mg/dl Urine Osmolality 639 mOms/kg Assessment and Plan Patient is a pleasant 61 y/o male, with PMHx of Crohn's disease, hyponatremia, chronic anemia, anxiety, RLS, and hypothyroidism, who presented to the ED because of worsening fatigue and bilateral lower extremity cramping x2 weeks. Hyponatremia: stable but has been slow to improve no further IV fluids reviewed urine osm of 417, suggests SIADH appreciate recommendations from nephrology, fluid restrict, NaCl 1gm TID Lasix to stop concentrating urine Renal plans to monitor Na again overnight Chronic anemia, due to iron deficiency ferritin low at 31, will treat with Venofer for 5 days total was not tolerating PO iron at home Will need to discuss with Dr. Sol for scheduled infusions as outpatient Hypothyroidism- TSH WNL in 05/11: Continue Synthroid 50 mcg daily Crohn's disease s/p ileectomy- in remission Anxiety: stop Lexapro due to hyponatremia RLS: Gabapentin 100 mg HS GI prophylaxis: Protonix 40 mg daily DVT prophylaxis: Lovenox SQ Code Status: LEVEL I, FULL Dispo: From home, lives w/ - no discharge needs anticipated
[2017-08-05] MEDS: ENOXAPARIN 40 MG/0.4 ML SYR SC SCH (20:41)
[2017-08-05] MEDS: GABAPENTIN 100 MG CAP PO SCH (20:42)
[2017-08-05] MEDS: ACETAMINOPHEN 325 MG TAB PO PRN (23:55)
[2017-08-05 23:57] VITALS: BP 113/71; PULSE 76; TEMP 36.9; O2SAT 100
[2017-08-06 06:31] LABS: HEMATOCRIT 31.4 % (42-52); MEAN CORPUSCULAR HEMOGLOBIN 28.2 pg (25-34); MEAN CORPUSCULAR HGB CONC 34.4 g/dl (32-36); MEAN PLATELET VOLUME 8.3 fL (7.4-10.4); PLATELET COUNT 170 K/uL (130-400); RED BLOOD COUNT 3.83 M/uL (4.7-6.1)
[2017-08-06] MEDS: LEVOTHYROXINE 50 MCG TAB PO SCH (06:48)
[2017-08-06 07:00] LABS: BUN/CREATININE RATIO 15.6 (10-20); CALCIUM 8.4 mg/dl (8.5-10.1); CREATININE 0.87 mg/dl (0.60-1.40); POTASSIUM 4.2 mmol/L (3.5-5.1)
[2017-08-06 07:22] VITALS: BP 148/80; PULSE 96; TEMP 36.6; O2SAT 97
[2017-08-06 08:00] VITALS: O2SAT 97
[2017-08-06] MEDS: CEROVITE ADV FORMULA TAB PO SCH (08:00)
[2017-08-06] MEDS: PANTOprazole SOD 40 MG TAB PO SCH (08:00)
[2017-08-06] MEDS: IRON SUCROSE INJ 200 MG in SODIUM CHLORIDE 0.9% 100ML 100 ML IV SCH (08:00)
[2017-08-06] MEDS ORDERED: FUROSEMIDE 20 MG TAB PO SCH (08:00)
[2017-08-06] MEDS: SODIUM CHLORIDE 1 GM TAB PO SCH ×2 (08:00→13:28)
--- NOTE | 2017-08-06 10:43 | Nephrology Progress Note ---
Nephrology Progress Note Date of Service Aug 06, 2017. Chief Complaint Hyponatremia Subjective Mr. Huitron was seen & examined in his hospital room this morning. He reports improved strength. He is tolerating his NaCl and Furosemide therapy without GI upset or other side effect. Review of Systems Constitutional: No fever Cardiovascular: No chest pain Respiratory: No dyspnea at rest Abdomen: No pain, No nausea, No vomiting Genitourinary - Male: No dysuria, No gross hematuria Extremities: No leg edema A complete review of systems was performed. Pertinent positives are noted above. All other systems are negative. Vital Signs Last 8 Hrs Date Time Temp Pulse Resp B/P (MAP) Pulse Ox O2 Delivery O2 Flow Rate FiO2 08/06/17 08:00 97 Room Air 08/06/17 07:22 36.6 96 20 148/80 (102) 97 Room Air Last Recorded Weight Weight (Kilograms): 71.900 Physical Exam General Appearance: no apparent distress Head: normocephalic, atraumatic Eyes: PERRL, EOMI Neck: no adenopathy Respiratory/Chest: lungs clear, no respiratory distress Cardiovascular: regular rate, rhythm, no murmur Abdomen/GI: normal bowel sounds, non tender, soft Extremities/Musculoskelatal: no calf tenderness, no pedal edema Neurologic/Psych: alert, oriented x 3 Family History FHx: diabetes FHx: gallbladder disease FHx: hypertension FHx: kidney disease Social History Smoking Status: Never smoker Drug Use: none Marital Status: Housing Status: lives with family Occupation: retired Retired from [employer]. Patient retired within the past year. He lives with his . His father this year. Laboratory Results Past 24 Hours 08/06/17 06:05 08/05/17 12:57 08/06/17 06:05 Test 08/05/17 11:53 08/05/17 12:57 08/06/17 06:05 Urine Osmolality 639 mOms/kg (500-800) Anion Gap 6.0 mmol/L (3-11) 3.0 mmol/L (3-11) Est Creatinine Clear Calc Drug Dose 85.3 ml/min 89.2 ml/min Estimated GFR () 105.1 108.0 Estimated GFR (Non- 90.6 93.2 BUN/Creatinine Ratio 15.5 (10-20) 15.6 (10-20) Calcium Level 8.5 mg/dl (8.5-10.1) 8.4 mg/dl (8.5-10.1) Red Blood Count 3.83 M/uL (4.7-6.1) Mean Corpuscular Volume 82.0 fL (80-100) Mean Corpuscular Hemoglobin 28.2 pg (25-34) Mean Corpuscular Hemoglobin Concent 34.4 g/dl (32-36) RDW Standard Deviation 39.5 fL (36.4-46.3) RDW Coefficient of Variation 13.2 % (11.5-14.5) Mean Platelet Volume 8.3 fL (7.4-10.4) Osmolality 274 mOsm/kg (280-300) Allergies Coded Allergies: Metronidazole (Verified Allergy, Unknown, NUMBNESS - IV FORMULATION, ) Zolpidem (Verified Allergy, Unknown, UNKNOWN, 05/15/17) CAUSED HALLUCINATIONS Prednisone (Verified Adverse Reaction, Severe, high blood sugar, 08/02/17) Pork (Verified Adverse Reaction, Intermediate, GI SYMPTOMS, 05/15/17) Aspirin (Verified Adverse Reaction, Mild, Stomach pain, 05/15/17) Pork (Porcine) Protein (Unverified Adverse Reaction, Mild, GI SYMPTOMS, ) Ibuprofen (Verified Adverse Reaction, Unknown, GI UPSET, 05/15/17) Medications Current Inpatient Medications Medications (Trade) Dose Ordered Sig/Valarie Route Start Time Stop Time Status Last Admin Dose Admin Enoxaparin Sodium (Lovenox Inj) 40 mg Q24H SC 08/02/17 21:00 09/01/17 20:59 08/05/17 20:41 40 MG Acetaminophen (Tylenol Tab) 650 mg Q4H PRN PO 08/02/17 18:15 09/01/17 18:14 08/05/17 23:55 650 MG Al Hydrox/Mg Hydrox/Simethicone (Maalox Max Susp) 15 ml Q4H PRN PO 08/02/17 18:15 09/01/17 18:14 Magnesium Hydroxide (Milk Of Magnesia Susp) 30 ml Q12H PRN PO 08/02/17 18:15 09/01/17 18:14 Ondansetron HCl (Zofran Inj) 4 mg Q6H PRN IV 08/02/17 18:15 09/01/17 18:14 Nitroglycerin (Nitrostat Tab) 0.4 mg UD PRN SL 08/02/17 18:15 09/01/17 18:14 Polyethylene (Miralax Powder Packet) 17 gm DAILY PRN PO 08/02/17 18:15 09/01/17 18:14 Ascorbic Acid (Vitamin C Tab) 500 mg DAILY@1200 PO 08/03/17 12:00 09/02/17 11:59 08/05/17 11:57 500 MG Escitalopram Oxalate (Lexapro Tab) 10 mg HS PO 08/02/17 21:00 09/01/17 20:59 Future Hold 08/02/17 21:40 10 MG Gabapentin (Neurontin Cap) 100 mg HS PO 08/02/17 21:00 09/01/17 20:59 08/05/17 20:42 100 MG Levothyroxine Sodium (Synthroid Tab) 50 mcg DAILYBB PO 08/03/17 06:00 09/02/17 05:59 08/06/17 06:48 50 MCG Multivitamins/ Minerals (Multivitamin W/ Minerals Tab) 1 tab DAILY PO 08/03/17 09:00 09/02/17 08:59 08/06/17 08:00 1 TAB Bacitracin (Bacitracin Oint) 1 appln TID PRN TOP 08/02/17 18:15 09/01/17 18:14 Ondansetron HCl (Zofran Tab) 4 mg TID PRN PO 08/02/17 18:15 09/01/17 18:14 Pantoprazole Sodium (Protonix Tab) 40 mg DAILY PO 08/03/17 09:00 09/02/17 08:59 08/06/17 08:00 40 MG Iron Sucrose 200 mg/Sodium Chloride 110 ml @ 220 mls/hr DAILY@0800 IV 08/05/17 08:00 08/08/17 08:29 08/06/17 08:00 220 MLS/HR Sodium Chloride (Sodium Chloride Tab) 2 gm TID PO 08/04/17 20:00 09/02/17 19:59 08/06/17 08:00 2 GM Furosemide (Lasix Tab) 20 mg QAM PO 08/06/17 08:00 09/05/17 07:59 08/06/17 08:00 20 MG Impression (1) Hyponatremia (2) Anemia Mr. 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 He was admitted with leg cramps and fatigue. Symptoms are consistent with prior episodes of dysnatremia. He has chronic hyponatremia with a serum sodium of 130 mmol/L in April. Serum sodium improved from 123 to 125 with 2 grams of oral NaCl as well as a 1 L fluid restriction. Volume status appears euvolemic. Urine osmolality elevated at >400. Repeat urine studies are pending this morning. Lexapro has been held. Recommendations HYPONATREMIA: -- Serum sodium is normalizing. Continue 1.5 L oral fluid restriction/day, NaCl 1 g po TID and Furosemide 20 mg po each morning -- Will continue to monitor I&O's and PRP -- I have requested that my office staff contact patient and schedule a Nephrology OV within 2 weeks. Orders for nonfasting lab testing 24 hours prior to OV have been placed in [employer] HTN: -- BP acceptable -- Continue to monitor ENDO: -- TSH checked and found to be acceptable PSYCH: -- Lexapro has been held at patient's consent
[2017-08-06] MEDS: ASCORBIC ACID 500 MG TAB PO SCH (11:02)
[2017-08-06] MEDS ORDERED: LSX20 PO (12:09)
[2017-08-06] MEDS ORDERED: SDMC1 PO (12:09)
[2017-08-06] MEDS ORDERED: VNFI IV (12:09)
--- NOTE | 2017-08-06 12:16 | Discharge Instructions ---
Discharge Instructions Date of Service Aug 06, 2017. Admission Reason for Admission: Hyponatremia Discharge Discharge Diagnosis / Problem: Hyponatremia, iron deficiency Discharge Goals Goal(s): Decrease discomfort, Improve function, Increase independence Activity Recommendations Activity Limitations: resume your previous activity . Instructions / Follow-Up Instructions / Follow-Up You should continue to take the sodium tablets as you have been here, mixed with applesauce. You have one dose of IV iron left. You will have that given tomorrow in the [facility] ([facility]). Case Management will set that up prior to your discharge. You can be discharged with your IV and they will use that tomorrow. They should take out your IV tomorrow after you finish your iron treatment. Continue with 1.5 L (1500ml) fluid restriction/day Nephrology office staff will contact you to schedule an appointment within 2 weeks, they will also discuss labs that will need done prior to that appointment and further instructions regarding this. Your lexapro was stopped on this admission due to the possibility that it was contributing to your sodium issues as was discussed with you by the kidney doctors. If you or your family notice that you are having worsening depression , you should be seen by your PCP to evaluate for need to replace this medication Call your Primary Care doctor if any of the following symptoms or problems start or get worse: * Shortness of breath or difficulty breathing * Wake up at night short of breath * Chest pain * Cough * Swelling of your hands, feet, or legs * More fatigued or tired with your normal activity * Palpitations - sudden fast heart beats WEIGHT * Weigh yourself every morning after using the bathroom. * Use the same scale. * Wear the same amount of clothing. * Write your weight down on a chart. * Call your Primary Care doctor if you gain more than 2-3 pounds in 1-2 days. MEDICATIONS * Use this discharge instruction sheet for medication instructions. * Take your medications at the time your doctor ordered. * Do not skip a dose of your medicines. * If you miss a dose of medicine, take it as soon as possible, but DO NOT DOUBLE A DOSE. * Read your medicine information when you get home. * Know all of the side effects of your medicine. If in doubt, ask your pharmacist * Call your Primary Care doctor's office if you have any side effects. * Be sure all of your doctors know what medicine and herbs you take (including cold, flu, and herbal medicine). Take the following with you to your follow-up doctor appointments: * Weight Chart * Medication List * List of questions Do not drink excessive alcohol, beer or wine. Current Hospital Diet Patient's current hospital diet: Regular Diet Discharge Diet Recommended Diet: Regular Diet Fluid Restriction: 1500 ml (6 cups) Pending Studies Studies pending at discharge: no Medical Emergencies . Who to Call and When: Call 911 or go to the Emergency Room if: * If at any time you feel your situation is an emergency * You have tightness or pain in your chest that does not go away with rest or Nitroglycerin * You are very short of breath even with rest . Non-Emergent Contact Non-Emergency issues call your: Primary Care Provider, Certified Performance Technologist . . "Provider Documentation" section prepared by Glenda Sanchez. . VTE Core Measure Inpt VTE Proph given/why not?: Enoxaparin (Lovenox)MELISSA, TGatoEManolo. [place], SCD's
--- NOTE | 2017-08-06 12:33 | Discharge Summary ---
Discharge Summary Date of Service Aug 06, 2017. Discharge Summary Admission Date: Aug 02, 2017 at 18:16 Discharge Date: Aug 06, 2017 Discharge Disposition: Home Principal Diagnosis: HypoNa, Iron deficiency anemia Problems/Secondary Diagnoses: HypoNa Crohn's Anemia RLS Anxiety/depression Hypothyroid Immunizations: Have You Had Influenza Vaccine: No History of Tetanus Vaccine?: Yes History of Pneumococcal: No History of Hepatitis B Vaccine: No Consultations: Dr. Wood Medication Reconciliation New Medications: Iron Sucrose (Venofer) 100 Mg/5 Ml Inj 200 MG IV DAILY for 1 Day Furosemide (Furosemide) 20 Mg Tab 20 MG PO QAM for 30 Days, #30 TAB Sodium Chloride (Sodium Chloride) 1 Gm Tab 2 GM PO TID for 30 Days, #90 TAB Continued Medications: Ascorbic Acid (Ascorbic Acid) 500 Mg Tab 500 MG PO NOON Calcium Carbonate-Vitamin D (Calcium + D) 1 Tab Tab 1 TAB PO QAM Gabapentin (Gabapentin) 100 Mg Cap 100 MG PO HS Levothyroxine Sodium (Levothyroxine Sodium) 50 Mcg Tab 50 MCG PO QAM, #30 Multiple Vitamins W/ Minerals (Centrum) 1 Tab Tab 1 TAB PO NOON Mupirocin (Bactroban 2% Oint) 66 Appln/22 Gm Oint 1 APPLN TOP TID PRN for , #22 Ondansetron Hcl (Zofran) 4 Mg Tab 4 MG PO TID PRN for Nausea Pantoprazole (Pantoprazole Sodium) 40 Mg Tab 40 MG PO DAILY, #30 Discontinued Medications: Escitalopram Oxalate (Escitalopram Oxalate) 10 Mg Tab 10 MG PO HS Sodium Chloride (Sodium Chloride) 1 Gm Tab 1 GM PO DAILY, #60 Discharge Exam Pt is feeling much improved. Has occasional LE spasms/cramping, but not frequent and less intense that [employer]. Tolerating PO without issue. Pt denies fever, SOB, chest pain, abd pain, n/v/c/d, LE swelling. Pertinent positives and negatives reviewed in HPI--all others negative Physical Exam: General Appearance: WD/WN, no apparent distress Respiratory/Chest: normal breath sounds, no respiratory distress Cardiovascular: regular rate, rhythm, no edema Abdomen / GI: non tender, soft Extremities: no calf tenderness, no pedal edema Neurologic/Psychiatric: alert, normal mood/affect, oriented x 3 Skin: warm/dry, + pallor Hospital Course Patient is a pleasant 61 y/o male, with PMHx of Crohn's disease, hyponatremia, chronic anemia, anxiety, RLS, and hypothyroidism, who presented to the ED because of worsening fatigue and bilateral lower extremity cramping x2 weeks. Hyponatremia: stable but has been slow to improve, 132 on d/ reviewed urine osm of 417, suggests SIADH appreciate recommendations from nephrology, fluid restrict to 1.5L daily, NaCl 1gm TID Lasix to stop concentrating urine Pt has been tolerating PO NaCl by mixing it with applesauce and then mixing that applesauce with more applesauce Chronic anemia, due to iron deficiency ferritin low at 31 on admission, will treat with Venofer for 5 days total was not tolerating PO iron at home Will need to discuss with Dr. Sol for scheduled infusions as outpatient Pt was due for one further venofer tx on and was sent home with IV in place and appt for [facility] for 08/07 Hypothyroidism- TSH WNL in 05/11: Continue Synthroid 50 mcg daily Crohn's disease s/p ileectomy- in remission Anxiety/depression: stop Lexapro due to hyponatremia Pt had been debating discussing cessation of this medication [employer] as he felt it was not helping much Advised that if he has anxiety/depression sx or concerns to discuss with PCP RLS: Gabapentin 100 mg HS Total Time Spent: Greater than 30 minutes This includes examination of the patient, discharge planning, medication reconciliation, and communication with other providers. Discharge Instructions Please refer to the electronic Patient Visit Report (Discharge Instructions) for additional information. Follow-Up Dr. Wood in [address] Sol in 1-2 weeks Additional Copies To ,Oren Wahl M.D.
[2017-08-06 12:38] VITALS: BP 148/80; PULSE 96; TEMP 36.6; O2SAT 97
== END 2017-08-06 14:10 | disposition home or self-care (01) | DRG 812 ==
LOC: C.EDB 14:23 → C.2T 18:16 → ENRESERV 18:59 → C.4E 08-03 11:45
PROVIDERS: ADMIT Family Medicine; ATTEND Family Medicine
DX: D50.9 Iron deficiency anemia, unspecified (principal); E87.1 Hypo-osmolality and hyponatremia; K50.913 Crohn's disease, unspecified, with fistula; A04.7 Enterocolitis due to Clostridium difficile; N30.00 Acute cystitis without hematuria; G25.81 Restless legs syndrome; E03.9 Hypothyroidism, unspecified; Z83.3 Family history of diabetes mellitus; F41.8 Other specified anxiety disorders; Z91.14 Patient's other noncompliance with medication regimen

== ENCOUNTER → 2017-08-12 | Outpatient (CLI) | payer BC ==
[~2017-08-12] MED LIST changes: +ASCO500T16 PO; +BCTROWC TOP; +LEVO50TA6 PO; +LSX20 PO; -MDRDP21 PO; +MULTTAB5 PO; +PRT/40 PO; +SDMC1 PO; +VNFI IV
[2017-08-12 15:19] LABS: BASO % 0.5 %; BASO ABS # 0.03 K/uL (0-0.2); COMPLETE YES; EOS % 6.6 %; HEMATOCRIT 34.9 % (42-52); IG% 0.2 %; LYMPH % 20.3 %; LYMPH ABS # 1.14 K/uL (1.2-3.4); MEAN CELL VOLUME 85.3 fL (80-100); MEAN CORPUSCULAR HEMOGLOBIN 29.3 pg (25-34); MEAN CORPUSCULAR HGB CONC 34.4 g/dl (32-36); MONO % 16.4 %; PLATELET COUNT 197 K/uL (130-400); RED BLOOD COUNT 4.09 M/uL (4.7-6.1); WHITE BLOOD COUNT 5.61 K/uL (4.8-10.8)
== END | disposition home or self-care (01) ==
LOC: C.LAB1850 13:55
PROVIDERS: ATTEND Internal Medicine
DX: Z00.00 Encounter for general adult medical examination without abnormal findings (principal)

== ENCOUNTER → 2017-08-12 | Outpatient (CLI) | payer BC ==
--- NOTE | 2017-08-13 00:05 | DIAGNOSTIC IMAGING REPORT ---
MRI OF THE SACRUM AND SACROILIAC JOINTS WITHOUT IV CONTRAST CLINICAL HISTORY: Low back pain. Pelvic pain. COMPARISON STUDY: Pelvic CT dated 08/02/2017. TECHNIQUE: MRI of the sacrum and sacroiliac joints is performed utilizing various T1 and T2-weighted sequences in the axial, sagittal and coronal planes. IV contrast was not administered for this examination. FINDINGS: Marrow signal intensity is heterogeneous. There is no marrow edema or evidence of a marrow replacement process. No destructive bony lesion is suggested. No edema is seen involving the sacroiliac joints. Minimal degenerative sclerosis is observed. No erosion is seen. Small sacral Tarlov cysts are noted at S2. A hemitransitional left lumbosacral segment is noted. There is a small disc bulge at L4-L5. This causes mild acquired compromise of the central canal. This likely abuts the transiting nerve roots at this level. The sacral nerve roots are normal as visualized. The paraspinous soft tissues are normal as imaged. IMPRESSION: 1. Mild degenerative sclerosis is seen involving the sacroiliac joints. No marrow edema, erosion, or destructive bony process is identified. 2. There is a posterior disc bulge at L4-L5 which causes mild acquired compromise of the central canal and may abut the transiting nerve roots at this level. 3. Tiny Tarlov cysts are incidentally noted. Dictated: 08/12/2017 9:15 PM Transcribed: 08/13/2017 12:04 AM Janusz Electronically signed by: Donald Lewis M.D. 08/13/2017 2:26 PM Dictated Date/Time: 08/12/2017 9:15 PM
== END | disposition home or self-care (01) ==
LOC: C.MRI 19:39
PROVIDERS: ATTEND Internal Medicine Rheumatology
DX: M25.50 Pain in unspecified joint (principal); S16.1XXA Strain of muscle, fascia and tendon at neck level, initial encounter; X58.XXXA Exposure to other specified factors, initial encounter

== ENCOUNTER 2017-11-05 17:13 | Emergency (ER) | payer BC ==
[~2017-11-05] VITALS: Ht 172.7 cm; Wt 69.1 kg
[~2017-11-05 17:13] MED LIST changes: +PANT40TA2 PO; -PRT/40 PO
[2017-11-05 17:19] VITALS: Ht 172.7 cm; Wt 69.1 kg
[2017-11-05] MEDS ORDERED: SODIUM CHLORIDE 0.9% 1000ML 1,000 ML IV STA (17:39)
[2017-11-05] MEDS ORDERED: ONDANSETRON INJ 2 MG/ML 2 ML VIAL IV STA (17:39)
[2017-11-05 18:12] LABS: URINE APPEARANCE CLEAR (CLEAR); URINE BILIRUBIN NEG (NEG); URINE COLOR DK YELLOW; URINE NITRITE NEG (NEG); URINE SPECIFIC GRAVITY 1.027 (1.000-1.030); UROBILINOGEN NEG (NEG)
[2017-11-05 18:13] LABS: MANUAL MICROSCOPIC REQUIRED? NO; REVIEW REQ? NO
[2017-11-05 18:29] LABS: BASO % 0.2 %; BASO ABS # 0.01 K/uL (0-0.2); COMPLETE YES; EOS % 1.3 %; HEMATOCRIT 35.7 % (42-52); IG% 0.2 %; LYMPH % 13.3 %; LYMPH ABS # 0.79 K/uL (1.2-3.4); MEAN CELL VOLUME 85.6 fL (80-100); MEAN CORPUSCULAR HEMOGLOBIN 30.7 pg (25-34); MEAN CORPUSCULAR HGB CONC 35.9 g/dl (32-36); MONO % 11.8 %; NEUT % 73.2 %; PLATELET COUNT 135 K/uL (130-400); RED BLOOD COUNT 4.17 M/uL (4.7-6.1); WHITE BLOOD COUNT 5.95 K/uL (4.8-10.8)
[2017-11-05] MEDS ORDERED: ACETAMINOPHEN 325 MG TAB ONE (18:37)
[2017-11-05 18:44] LABS: PARTIAL THROMBOPLASTIN RATIO 1.1; PROTHROMBIN TIME (PATIENT) 10.7 SECONDS (9.0-12.0)
[2017-11-05] MEDS ORDERED: NURSING VERBAL MED ORDER ONE (18:45)
[2017-11-05 18:53] LABS: BUN/CREATININE RATIO 15.4 (10-20); CREATININE 0.96 mg/dl (0.60-1.40); POTASSIUM 4.1 mmol/L (3.5-5.1)
[2017-11-05 19:23] VITALS: BP 140/71; PULSE 109; TEMP 37.5; O2SAT 100
--- NOTE | 2017-11-05 19:34 | EMERGENCY ROOM VISIT NOTE ---
History Report prepared by Esdras: Dary Perry Under the Supervision of: Dr. Yosi Grajeda M.D. First contact with patient: 17:27 Chief Complaint: DIZZY Stated Complaint: CHILLS,POSSIBLE DEHYDRATION,DIZZINESS Nursing Triage Summary: pt reports started with migraine since sat and since then has been nauseated with intermittent dizziness which has become worse today pt reports decreased po intake over the weekend also reports low back pain ongoing History of Present Illness The patient is a 62 year old male who presents to the Emergency Room with complaints of intermittent dizziness beginning three days ago. The patient states his symptoms started as a migraine on Saturday, three days ago. He reports a history of chronic migraines. He states this migraine lasted longer than his normal migraines, but was otherwise the same. Presently, the patient denies having a migraine. The patient reports feeling lightheaded and weak but denies any fever, chest pain, or diarrhea. He notes some dark stools but states it is most likely due to taking iron. He denies melena. The patient has a history of hyponatremia and takes 3,000 mg of sodium daily. He notes recently forgetting to take his sodium as prescribed. He states his symptoms over the past three days are similar to the previous times he has been hyponatremic. The patient notes "problems" with his left leg which he has been following up with Dr. Salcido for. He says that his leg pain sometimes flares up when he has hyponatremia. The patient has a history of Crohn's disease and an ileectomy with anastomosis. Source of History: patient Onset: 3 days ago Position: other (global) Quality: other (dizziness) Timing: intermittent Associated Symptoms: + weakness, No fevers, No chest pain, No diarrhea Note: Pt reports feeling lightheaded. Review of Systems See HPI for pertinent positives & negatives. A total of 10 systems reviewed and were otherwise negative. Past Medical & Surgical Medical Problems: (1) Crohn's disease (2) GERD (gastroesophageal reflux disease) (3) History of ileectomy (4) Kidney stones (5) Rectal abscess Surgical Problems: (1) History of appendectomy Family History FHx: diabetes FHx: gallbladder disease FHx: hypertension FHx: kidney disease Social History Smoking Status: Never Smoker Alcohol Use: occasionally Drug Use: none Marital Status: Housing Status: lives with significant other Occupation Status: retired Current/Historical Medications Scheduled Ascorbic Acid (Ascorbic Acid), 500 MG PO NOON Calcium Carbonate-Vitamin D (Calcium + D), 1 TAB PO QAM Furosemide (Furosemide), 20 MG PO QAM Gabapentin (Gabapentin), 100 MG PO HS Iron Sucrose (Venofer), 200 MG IV DAILY Levothyroxine Sodium (Levothyroxine Sodium), 50 MCG PO QAM Multiple Vitamins W/ Minerals (Centrum), 1 TAB PO NOON Pantoprazole (Pantoprazole Sodium), 40 MG PO DAILY Sodium Chloride (Sodium Chloride), 2 GM PO TID Scheduled PRN Mupirocin (Bactroban 2% Oint), 1 APPLN TOP TID PRN for Ondansetron Hcl (Zofran), 4 MG PO TID PRN for Nausea Allergies Coded Allergies: Metronidazole (Verified Allergy, Unknown, NUMBNESS - IV FORMULATION, ) Zolpidem (Verified Allergy, Unknown, UNKNOWN, 05/15/17) CAUSED HALLUCINATIONS Prednisone (Verified Adverse Reaction, Severe, high blood sugar, 08/02/17) Pork (Verified Adverse Reaction, Intermediate, GI SYMPTOMS, 05/15/17) Aspirin (Verified Adverse Reaction, Mild, Stomach pain, 05/15/17) Pork (Porcine) Protein (Unverified Adverse Reaction, Mild, GI SYMPTOMS, ) Ibuprofen (Verified Adverse Reaction, Unknown, GI UPSET, 05/15/17) Physical Exam Vital Signs Date Time Temp Pulse Resp B/P (MAP) Pulse Ox O2 Delivery O2 Flow Rate FiO2 11/05/17 19:23 37.5 109 20 140/71 100 11/05/17 17:44 109 11/05/17 17:19 37.5 110 20 140/71 100 Room Air Physical Exam Constitutional: Vital signs reviewed. Eyes: Pupils are equal round reactive to light. Conjunctiva are noninjected. ENT: Pharynx is clear without erythema or exudate. Mucous membranes are dry. Neck supple without meningeal signs. Respiratory: Clear to auscultation bilaterally. Breath sounds are equal bilaterally. Cardiovascular: Tachycardic. Heart rate 110. No rubs or gallops. GI: Soft, nondistended and nontender. Bowel sounds are present. Musculoskeletal: No peripheral edema. No lower extremity tenderness. Integumentary: No cyanosis. Neurological: The patient is awake and alert. Cranial nerves II-XII are intact. Motor is 5 out of 5 all extremities. Sensation is intact to light touch all extremities. Normal speech. No pronator drift. No limb ataxia. Psychiatric: Normal affect. Medical Decision & Procedures Laboratory Results 11/05/17 17:51 Red Blood Count 4.17, Mean Corpuscular Volume 85.6, Mean Corpuscular Hemoglobin 30.7, Mean Corpuscular Hemoglobin Concent 35.9, Mean Platelet Volume 9.0, Neutrophils (%) (Auto) 73.2, Lymphocytes (%) (Auto) 13.3, Monocytes (%) (Auto) 11.8, Eosinophils (%) (Auto) 1.3, Basophils (%) (Auto) 0.2, Neutrophils # (Auto ) 4.36, Lymphocytes # (Auto) 0.79, Monocytes # (Auto) 0.70, Eosinophils # (Auto ) 0.08, Basophils # (Auto) 0.01 11/05/17 17:51 Test 11/05/17 17:51 11/05/17 17:56 11/05/17 17:57 White Blood Count 5.95 K/uL (4.8-10.8) Red Blood Count 4.17 M/uL (4.7-6.1) Hemoglobin 12.8 g/dL (14.0-18.0) Hematocrit 35.7 % (42-52) Mean Corpuscular Volume 85.6 fL (80-100) Mean Corpuscular Hemoglobin 30.7 pg (25-34) Mean Corpuscular Hemoglobin Concent 35.9 g/dl (32-36) Platelet Count 135 K/uL (130-400) Mean Platelet Volume 9.0 fL (7.4-10.4) Neutrophils (%) (Auto) 73.2 % Lymphocytes (%) (Auto) 13.3 % Monocytes (%) (Auto) 11.8 % Eosinophils (%) (Auto) 1.3 % Basophils (%) (Auto) 0.2 % Neutrophils # (Auto) 4.36 K/uL (1.4-6.5) Lymphocytes # (Auto) 0.79 K/uL (1.2-3.4) Monocytes # (Auto) 0.70 K/uL (0.11-0.59) Eosinophils # (Auto) 0.08 K/uL (0-0.5) Basophils # (Auto) 0.01 K/uL (0-0.2) RDW Standard Deviation 42.6 fL (36.4-46.3) RDW Coefficient of Variation 13.7 % (11.5-14.5) Immature Granulocyte % (Auto) 0.2 % Immature Granulocyte # (Auto) 0.01 K/uL (0.00-0.02) Prothrombin Time 10.7 SECONDS (9.0-12.0) Prothromb Time International Ratio 1.0 (0.9-1.1) Activated Partial Thromboplast Time 27.3 SECONDS (21.0-31.0) Partial Thromboplastin Ratio 1.1 Anion Gap 6.0 mmol/L (3-11) Est Creatinine Clear Calc Drug Dose 77.2 ml/min Estimated GFR () 97.8 Estimated GFR (Non- 84.4 BUN/Creatinine Ratio 15.4 (10-20) Calcium Level 9.0 mg/dl (8.5-10.1) Total Bilirubin 1.5 mg/dl (0.2-1) Direct Bilirubin 0.3 mg/dl (0-0.2) Aspartate Amino Transf (AST/SGOT) 34 U/L (15-37) Alanine Aminotransferase (ALT/SGPT) 33 U/L (12-78) Alkaline Phosphatase 67 U/L (45-117) Total Protein 8.1 gm/dl (6.4-8.2) Albumin 4.1 gm/dl (3.4-5.0) Bedside Troponin I < 0.030 ng/ml (0-0.045) Urine Color DK YELLOW Urine Appearance CLEAR (CLEAR) Urine pH 5.0 (4.5-7.5) Urine Specific [place] 1.027 (1.000-1.030) Urine Protein 2+ (NEG) Urine Glucose (UA) NEG (NEG) Urine Ketones NEG (NEG) Urine Occult Blood 2+ (NEG) Urine Nitrite NEG (NEG) Urine Bilirubin NEG (NEG) Urine Urobilinogen NEG (NEG) Urine Leukocyte Esterase NEG (NEG) Urine WBC (Auto) 1-5 /hpf (0-5) Urine RBC (Auto) 10-30 /hpf (0-4) Urine Hyaline Casts (Auto) 1-5 /lpf (0-5) Urine Epithelial Cells (Auto) 5-10 /lpf (0-5) Urine Bacteria (Auto) NEG (NEG) Laboratory results as reviewed by me. Medications Administered Medications (Trade) Dose Ordered Sig/Valarie Route Start Time Stop Time Status Last Admin Dose Admin Sodium Chloride 1,000 ml @ 999 mls/hr Q1H1M STAT IV 11/05/17 17:39 11/05/17 18:39 DC 11/05/17 18:03 999 MLS/HR Ondansetron HCl (Zofran Inj) 4 mg NOW STAT IV 11/05/17 17:39 11/05/17 17:40 DC 11/05/17 18:03 4 MG Miscellaneous Information (Nursing Verbal Med Order) 1 ea ONE ONCE N/A 11/05/17 18:45 11/05/17 18:46 DC 11/05/17 18:41 1 EA ECG Indication: other (dizziness) Rate (beats per minute): 110 Rhythm: sinus tachycardia Findings: no acute ischemic change, no ectopy ED Course 1733: The patient was evaluated in room B10. A complete history and physical exam was performed. 173: Ordered Zofran Inj 4 mg IV, Sodium Chloride 1000 ml @ 999 mls/hr IV. 1837: Ordered Acetaminophen 650 mg .ROUTE. 1905: The patient feels much better after getting fluids. His heart rate is now 101 and he would like to go home. 5: Upon reevaluation, the patient appeared to have improvement of his symptoms. I discussed tonight's findings with him. He verbalized agreement of the treatment plan. The patient was discharged home. Medical Decision This is a 62-year-old male who presents with generalized dizziness and headache. Differential diagnosis includes dehydration, electrolyte abnormality , metabolic derangement, cardiac, migraine headache. I did perform a limited focused review of portions of the patient's old chart on the electronic medical record. The patient was admitted in July for hyponatremia. He also had an MRI of his lower back for back pain which showed a posterior disc bulge in L4 and L5 with mild acquired compromise of central canal. I did evaluate the patient as noted above. The patient has a prior history of hyponatremia. He is presenting today with symptoms he says are consistent with his prior bouts of hyponatremia. He clinically appears dehydrated. He has left leg pain but this is a chronic condition for him. IV access was established. The patient was placed on a continuous bus monitor. I did order and personally review the patient's 12-lead EKG as described above. I did order and review the patient's blood work as noted in the electronic medical record. He does have a sodium of 129 which is not far from his baseline. He is anemic but his hemoglobin is actually increased from his prior visit in July. I did treat patient with a liter normal saline. He was also given Tylenol for his flank pain. I did reassess the patient and discussed the test results with him. He states he is feeling much better after fluids and Tylenol. His tachycardia is significantly improved. He was encouraged to follow closely with his doctor and discharged in good condition. Medication Reconcilliation Current Medication List: was personally reviewed by me Blood Pressure Screening Patient's blood pressure: Elevated blood pressure Blood pressure disposition: Referred to PCP Impression Primary Impression: Dehydration Additional Impressions: Hyponatremia Headache Scribe Attestation The scribe's documentation has been prepared under my direct and personally reviewed by me in its entirety. I confirm that the note above accurately reflects all work, treatment, procedures, and medical decision making performed by me. Departure Information Dispostion Home / Self-Care Referrals No Doctor, Assigned (PCP) Forms HOME CARE DOCUMENTATION FORM, IMPORTANT VISIT INFORMATION Patient Instructions Hyponatremia [place], My [facility] Additional Instructions You have been examined and treated today on an emergency basis only. This is not a substitute for, or an effort to provide, complete comprehensive medical care. It is impossible to recognize and treat all injuries or illnesses in a single emergency department visit. It is therefore important that you follow up closely with your physician. Call as soon as possible for an appointment. Return for worsening symptoms or if you develop fever, vomiting, chest pain, shortness of breath or any other concerning symptoms. Problem Qualifiers Additional Impressions: Headache Headache type: unspecified Headache chronicity pattern: episodic headache Intractability: not intractable Qualified Codes: R51 - Headache
== END 2017-11-05 19:23 | disposition home or self-care (01) ==
LOC: C.EDB 17:15
DX: E86.0 Dehydration (principal); E87.1 Hypo-osmolality and hyponatremia; R51 Headache; G43.909 Migraine, unspecified, not intractable, without status migrainosus; K50.90 Crohn's disease, unspecified, without complications; K21.9 Gastro-esophageal reflux disease without esophagitis; R03.0 Elevated blood-pressure reading, without diagnosis of hypertension; Z83.3 Family history of diabetes mellitus; Z82.49 Family history of ischemic heart disease and other diseases of the circulatory system; Z83.79 Family history of other diseases of the digestive system

== ENCOUNTER 2018-01-07 19:06 | Emergency (ER) | payer OTHER ==
[~2018-01-07] VITALS: Ht 175.3 cm; Wt 73.0 kg
[~2018-01-07 19:06] MED LIST changes: -FERR142T PO; -FLV1 PO; -FURO-85 PO; -METH2.5T PO; -SODI1TAB PO
[2018-01-07 19:09] VITALS: TEMP 37.1; Ht 175.3 cm; Wt 73.0 kg
[2018-01-07] MEDS ORDERED: SODIUM CHLORIDE 0.9% 1000ML 1,000 ML IV STA (19:23)
[2018-01-07] MEDS ORDERED: OPTIRAY 320 IV PRN (19:30)
--- NOTE | 2018-01-07 19:32 | EMERGENCY ROOM VISIT NOTE ---
History Report prepared by Esdras: Sekou Grimm Under the Supervision of: Dr. Raheem Dill M.D. First contact with patient: 19:13 Chief Complaint: URINARY SYMPTOMS Stated Complaint: FEVER CHILLS,FLANK PAIN R BACK-DOC REFERRED History of Present Illness The patient is a 62 year old male who presents to the Emergency Room with complaints of intermittent burning upon urination beginning last night. The patient states he was evaluated by his PCP today for intermittent burning and blood upon urination, a fever, chills, and flank pain. He notes he developed a migraine last night, but it has currently resolved. He reports his fever was 99.5 degrees at his PCP, and it resolved on its own. The patient notes he is still experiencing the chills, urinary symptoms, and flank pain. He states he has a urinalysis completed earlier and was sent to the ED with concerning results. The patient reports a history of kidney stones and migraines. He denies abdominal pain, cough, congestion, diarrhea, nausea, vomiting, dizziness , chest pain, and shortness of breath. Source of History: patient Onset: last night Position: other (global) Quality: burning (upon urination) Timing: intermittent Associated Symptoms: + fevers (resolved), + chills, + headache (resolved), No cough, No chest pain, No SOB, No nausea, No vomiting, No abdominal pain, No diarrhea Note: Associated symptoms: blood in urine, flank pain Denies: congestion. dozzomess Review of Systems See HPI for pertinent positives and negatives. A total of ten systems were reviewed and were otherwise negative. Past Medical & Surgical Medical Problems: (1) Crohn's disease (2) GERD (gastroesophageal reflux disease) (3) History of ileectomy (4) Kidney stones (5) Rectal abscess Surgical Problems: (1) History of appendectomy Family History FHx: diabetes FHx: gallbladder disease FHx: hypertension FHx: kidney disease Social History Smoking Status: Never Smoker Alcohol Use: occasionally Drug Use: none Marital Status: Housing Status: lives with significant other Occupation Status: retired Current/Historical Medications Scheduled Ascorbic Acid (Ascorbic Acid), 500 MG PO NOON Calcium Carbonate-Vitamin D (Calcium + D), 1 TAB PO QAM Furosemide (Furosemide), 20 MG PO QAM Gabapentin (Gabapentin), 100 MG PO HS Iron Sucrose (Venofer), 200 MG IV DAILY Levothyroxine Sodium (Levothyroxine Sodium), 50 MCG PO QAM Multiple Vitamins W/ Minerals (Centrum), 1 TAB PO NOON Pantoprazole (Pantoprazole Sodium), 40 MG PO DAILY Sodium Chloride (Sodium Chloride), 2 GM PO TID Scheduled PRN Mupirocin (Bactroban 2% Oint), 1 APPLN TOP TID PRN for Ondansetron Hcl (Zofran), 4 MG PO TID PRN for Nausea Allergies Coded Allergies: Metronidazole (Verified Allergy, Unknown, NUMBNESS - IV FORMULATION, ) Zolpidem (Verified Allergy, Unknown, UNKNOWN, 05/15/17) CAUSED HALLUCINATIONS Prednisone (Verified Adverse Reaction, Severe, high blood sugar, 08/02/17) Pork (Verified Adverse Reaction, Intermediate, GI SYMPTOMS, 05/15/17) Aspirin (Verified Adverse Reaction, Mild, Stomach pain, 05/15/17) Pork (Porcine) Protein (Unverified Adverse Reaction, Mild, GI SYMPTOMS, ) Ibuprofen (Verified Adverse Reaction, Unknown, GI UPSET, 05/15/17) Physical Exam Vital Signs Date Time Temp Pulse Resp B/P (MAP) Pulse Ox O2 Delivery O2 Flow Rate FiO2 01/07/18 22:31 84 14 112/65 96 01/07/18 21:24 90 18 126/61 99 Room Air 01/07/18 19:09 37.1 93 18 122/59 99 Room Air Physical Exam GENERAL: Awake, alert, fatigued-appearing, in no distress HENT: Normocephalic, atraumatic. Oropharynx unremarkable. Mucus membranes dry. EYES: Normal conjunctiva. Sclera non-icteric. NECK: Supple. No nuchal rigidity. FROM. No JVD. RESPIRATORY: Clear to auscultation. CARDIAC: Regular rate, normal rhythm. Extremities warm and well perfused. Pulses equal. ABDOMEN: Soft, non-distended. No tenderness to palpation. No rebound or guarding. No masses. RECTAL: Deferred. : Normal external genitalia. BACK: Mild bilateral flank tenderness up palpation - right greater than left. MUSCULOSKELETAL: Chest examination reveals no tenderness. The back is symmetrical on inspection without obvious abnormality. There is no CVA tenderness to palpation. No joint edema. LOWER EXTREMITIES: Calves are equal size bilaterally and non-tender. No edema. No discoloration. NEURO: Normal sensorium. No sensory or motor deficits noted. SKIN: No rash or jaundice noted. Medical Decision & Procedures ER Provider Diagnostic Interpretation: Radiology results as stated below per my review and radiologist interpretation: ABD/PELVIS IV CONTRAST ONLY CLINICAL HISTORY: 62 years-old Male presenting with Left flank pain hematuria. TECHNIQUE: Multidetector CT of the abdomen and pelvis was performed after the administration of intravenous contrast. IV contrast: 92 mL of Optiray 320. A dose lowering technique was used consistent with the principles of ALARA (as low as reasonably achievable). COMPARISON: 08/02/2017. CT DOSE (mGy.cm): The estimated cumulative dose is 290.93 mGy.cm. FINDINGS: Clinical Veterinarian topogram: Unremarkable. Lung bases: Minimal basilar opacities, likely atelectasis. Normal heart size. No pericardial or pleural effusion. Liver: Normal morphology. Mild periportal edema. No focal lesion. Patent hepatic vasculature. Biliary: No intrahepatic or extrahepatic biliary ductal dilatation. Gallbladder contains gallstones. Pancreas: Normal. Spleen: Normal. Adrenal glands: Normal. Kidneys and ureters: Normal. No hydronephrosis. Bladder: Normal. Pelvic organs: Normal. Bowel: Few scattered diverticula in the descending and sigmoid colon. Postsurgical changes of right hemicolectomy with an ileocolic anastomosis in the mid abdomen. Mild distention of proximal small bowel, which measures up to 2.3 cm in diameter. No evidence of a transition point to suggest bowel obstruction. Peritoneal cavity: No free fluid or intraperitoneal gas. Lymph nodes: Few subcentimeter lymph nodes in the portacaval region likely reactive. No pathologically enlarged lymph nodes by CT size criteria. Vasculature: Atherosclerosis of the normal caliber abdominal aorta. IVC patent. Abdominal wall: Normal. Musculoskeletal: Degenerative changes of the spine. IMPRESSION: 1. No nephrolithiasis or hydronephrosis. 2. No acute intra-abdominal pathology. 3. Postsurgical changes of right hemicolectomy with ileocolic anastomosis. No bowel obstruction. 4. Mild periportal edema could be due to aggressive volume resuscitation. Electronically signed by: Ajith Gutiérrez M.D. 01/07/2018 8:48 PM Dictated Date/Time: 01/07/2018 8:42 PM Laboratory Results 01/07/18 19:37 Red Blood Count 3.99, Mean Corpuscular Volume 87.2, Mean Corpuscular Hemoglobin 31.6, Mean Corpuscular Hemoglobin Concent 36.2, Mean Platelet Volume 8.7, Neutrophils (%) (Auto) 61.7, Lymphocytes (%) (Auto) 20.9, Monocytes (%) (Auto) 15.5, Eosinophils (%) (Auto) 1.5, Basophils (%) (Auto) 0.2, Neutrophils # (Auto ) 3.34, Lymphocytes # (Auto) 1.13, Monocytes # (Auto) 0.84, Eosinophils # (Auto ) 0.08, Basophils # (Auto) 0.01 01/07/18 19:37 Test 01/07/18 19:32 01/07/18 19:37 01/07/18 20:41 01/07/18 22:22 Osmolality 263 mOsm/kg (280-300) White Blood Count 5.41 K/uL (4.8-10.8) Red Blood Count 3.99 M/uL (4.7-6.1) Hemoglobin 12.6 g/dL (14.0-18.0) Hematocrit 34.8 % (42-52) Mean Corpuscular Volume 87.2 fL (80-100) Mean Corpuscular Hemoglobin 31.6 pg (25-34) Mean Corpuscular Hemoglobin Concent 36.2 g/dl (32-36) Platelet Count 149 K/uL (130-400) Mean Platelet Volume 8.7 fL (7.4-10.4) Neutrophils (%) (Auto) 61.7 % Lymphocytes (%) (Auto) 20.9 % Monocytes (%) (Auto) 15.5 % Eosinophils (%) (Auto) 1.5 % Basophils (%) (Auto) 0.2 % Neutrophils # (Auto) 3.34 K/uL (1.4-6.5) Lymphocytes # (Auto) 1.13 K/uL (1.2-3.4) Monocytes # (Auto) 0.84 K/uL (0.11-0.59) Eosinophils # (Auto) 0.08 K/uL (0-0.5) Basophils # (Auto) 0.01 K/uL (0-0.2) RDW Standard Deviation 41.0 fL (36.4-46.3) RDW Coefficient of Variation 12.7 % (11.5-14.5) Immature Granulocyte % (Auto) 0.2 % Immature Granulocyte # (Auto) 0.01 K/uL (0.00-0.02) Anion Gap 7.0 mmol/L (3-11) Est Creatinine Clear Calc Drug Dose 93.5 ml/min Estimated GFR () 109.8 Estimated GFR (Non- 94.8 BUN/Creatinine Ratio 15.3 (10-20) Calcium Level 8.9 mg/dl (8.5-10.1) Total Bilirubin 1.4 mg/dl (0.2-1) Direct Bilirubin 0.3 mg/dl (0-0.2) Aspartate Amino Transf (AST/SGOT) 31 U/L (15-37) Alanine Aminotransferase (ALT/SGPT) 39 U/L (12-78) Alkaline Phosphatase 62 U/L (45-117) Total Protein 7.7 gm/dl (6.4-8.2) Albumin 3.5 gm/dl (3.4-5.0) Lipase 230 U/L (73-393) Urine Osmolality 677 mOms/kg (500-800) Influenza Type A Antigen Neg for Influ A (NEG) Influenza Type B Antigen Neg for Influ B (NEG) Laboratory results reviewed by me Medications Administered Medications (Trade) Dose Ordered Sig/Valarie Route Start Time Stop Time Status Last Admin Dose Admin Sodium Chloride 1,000 ml @ 999 mls/hr Q1H1M STAT IV 01/07/18 19:23 01/07/18 20:23 DC 01/07/18 19:41 999 MLS/HR Acetaminophen (Tylenol Tab) 1,000 mg NOW STAT PO 01/07/18 20:17 01/07/18 20:19 DC 01/07/18 20:40 1,000 MG ED Course 1916: The patient was evaluated in room B02. A complete history and physical exam was performed. 2206: I reevaluated the patient. Discussed results and discharge instructions: he verbalized understanding and agreement. The patient is ready for discharge. Medical Decision I reviewed the patient's past medical history, medications, and the nursing notes as described above. Differential diagnosis: Etiologies such as renal colic, appendicitis, diverticulitis, mesenteric ischemia, aortic pathology, infections, inflammatory bowel disease, PUD, biliary pathology, UTI, as well as others were entertained. The patient is a 62-year-old gentleman with a past medical history of renal stones who presents emergency Department with runny with urination that began yesterday with feverishness and chills seen by PCP and found to have outpatient UA with blood sent to the ED for evaluation of his flank pain per hpi. On arrival patient is in no acute distress, afebrile stable vital signs. He has mild bilateral flank pain right greater than left. Outpatient UA with 2+ blood, 1-5 WBC, LE/Nitrite, and bacteria negative. CT abd/pelvis unremarkable. Patient with resolution of dysuria after IVF. WBC wnl. H/H at baseline. Sodium chronically low at 125 and at baseline. Serum/urine osmolality suggests SIADH component. Findings and plan for follow-up reviewed with patient. Patient agreeable and d/c'd per discharge instructions. Medication Reconcilliation Current Medication List: was personally reviewed by me Blood Pressure Screening Patient's blood pressure: Normal blood pressure Blood pressure disposition: Did not require urgent referral Impression Primary Impression: Hematuria Additional Impression: Chronic hyponatremia Scribe Attestation The scribe's documentation has been prepared under my direction and personally reviewed by me in its entirety. I confirm that the note above accurately reflects all work, treatment, procedures, and medical decision making performed by me. Departure Information Dispostion Home / Self-Care Referrals Oren Sol M.D. (PCP) Forms HOME CARE DOCUMENTATION FORM, IMPORTANT VISIT INFORMATION Patient Instructions ED Hematuria, ED Hyponatremia, Hematuria Poss Causes, My [facility] Additional Instructions Please follow up with your primary care physician in the next 1-3 days for re- evaluation and to repeat your sodium level and urine sample. If your urine continues to have blood you may be given a referral for urology for further evaluation. The cause of your symptoms is unclear at this time however they did resolve with hydration. Otherwise your outpatient urine sample did not show any signs of infection. Thus we will wait for cultures. Otherwise, your exam, lab results, and CT scan did not show signs of an emergent condition at this time. Acetaminophen or ibuprofen for pain and fevers as needed. Continue your current medications and fluid restriction. Return to the emergency department for worsening symptoms as described in the accompanying instructions. Problem Qualifiers
[2018-01-07 19:49] LABS: HEMATOCRIT 34.8 % (42-52); HEMOGLOBIN 12.6 g/dL (14.0-18.0); MEAN CELL VOLUME 87.2 fL (80-100); MEAN CORPUSCULAR HEMOGLOBIN 31.6 pg (25-34); MEAN CORPUSCULAR HGB CONC 36.2 g/dl (32-36); MEAN PLATELET VOLUME 8.7 fL (7.4-10.4); PLATELET COUNT 149 K/uL (130-400); RED CELL DISTRIBUTION WIDTH CV 12.7 % (11.5-14.5); WHITE BLOOD COUNT 5.41 K/uL (4.8-10.8)
[2018-01-07 20:05] LABS: ALBUMIN 3.5 gm/dl (3.4-5.0); CALCIUM 8.9 mg/dl (8.5-10.1); CREATININE 0.82 mg/dl (0.60-1.40)
[2018-01-07 20:08] LABS: TOTAL PROTEIN 7.7 gm/dl (6.4-8.2)
[2018-01-07 20:11] LABS: BASO % 0.2 %; BASO ABS # 0.01 K/uL (0-0.2); EOS % 1.5 %; EOS ABS # 0.08 K/uL (0-0.5); IG# 0.01 K/uL (0.00-0.02); LYMPH % 20.9 %; LYMPH ABS # 1.13 K/uL (1.2-3.4); MONO % 15.5 %; MONO ABS # 0.84 K/uL (0.11-0.59); NEUT % 61.7 %; NEUT ABS # 3.34 K/uL (1.4-6.5)
[2018-01-07] MEDS ORDERED: ACETAMINOPHEN 500 MG TAB PO STA (20:17)
--- NOTE | 2018-01-07 20:49 | DIAGNOSTIC IMAGING REPORT ---
ABD/PELVIS IV CONTRAST ONLY CLINICAL HISTORY: 62 years-old Male presenting with Left flank pain hematuria. TECHNIQUE: Multidetector CT of the abdomen and pelvis was performed after the administration of intravenous contrast. IV contrast: 92 mL of Optiray 320. A dose lowering technique was used consistent with the principles of ALARA (as low as reasonably achievable). COMPARISON: 08/02/2017. CT DOSE (mGy.cm): The estimated cumulative dose is 290.93 mGy.cm. FINDINGS: Glass Fitter topogram: Unremarkable. Lung bases: Minimal basilar opacities, likely atelectasis. Normal heart size. No pericardial or pleural effusion. Liver: Normal morphology. Mild periportal edema. No focal lesion. Patent hepatic vasculature. Biliary: No intrahepatic or extrahepatic biliary ductal dilatation. Gallbladder contains gallstones. Pancreas: Normal. Spleen: Normal. Adrenal glands: Normal. Kidneys and ureters: Normal. No hydronephrosis. Bladder: Normal. Pelvic organs: Normal. Bowel: Few scattered diverticula in the descending and sigmoid colon. Postsurgical changes of right hemicolectomy with an ileocolic anastomosis in the mid abdomen. Mild distention of proximal small bowel, which measures up to 2.3 cm in diameter. No evidence of a transition point to suggest bowel obstruction. Peritoneal cavity: No free fluid or intraperitoneal gas. Lymph nodes: Few subcentimeter lymph nodes in the portacaval region likely reactive. No pathologically enlarged lymph nodes by CT size criteria. Vasculature: Atherosclerosis of the normal caliber abdominal aorta. IVC patent. Abdominal wall: Normal. Musculoskeletal: Degenerative changes of the spine. IMPRESSION: 1. No nephrolithiasis or hydronephrosis. 2. No acute intra-abdominal pathology. 3. Postsurgical changes of right hemicolectomy with ileocolic anastomosis. No bowel obstruction. 4. Mild periportal edema could be due to aggressive volume resuscitation. Electronically signed by: Ajith Gutiérrez M.D. 01/07/2018 8:48 PM Dictated Date/Time: 01/07/2018 8:42 PM
[2018-01-07 22:31] VITALS: BP 112/65; PULSE 84; O2SAT 96
[2018-01-07 22:54] LABS: INFLUENZA B ANTIGEN Neg for Influ B (NEG)
== END 2018-01-07 22:32 | disposition home or self-care (01) ==
LOC: C.EDB 19:08
DX: R31.9 Hematuria, unspecified (principal); E87.1 Hypo-osmolality and hyponatremia; Z87.442 Personal history of urinary calculi; K50.90 Crohn's disease, unspecified, without complications; K21.9 Gastro-esophageal reflux disease without esophagitis; Z90.49 Acquired absence of other specified parts of digestive tract; Z83.3 Family history of diabetes mellitus; Z82.49 Family history of ischemic heart disease and other diseases of the circulatory system; Z84.1 Family history of disorders of kidney and ureter; Z79.899 Other long term (current) drug therapy; Z88.6 Allergy status to analgesic agent; Z88.8 Allergy status to other drugs, medicaments and biological substances; Z91.018 Allergy to other foods

== ENCOUNTER → 2018-01-07 | Outpatient (CLI) | payer OTHER ==
[~2018-01-07] MED LIST changes: +FERR142T PO; +FLV1 PO; +FURO-85 PO; +METH2.5T PO; +SODI1TAB PO
== END | disposition home or self-care (01) ==
LOC: C.LAB 15:25
PROVIDERS: ATTEND Internal Medicine
DX: R35.0 Frequency of micturition (principal)

== ENCOUNTER → 2018-01-20 | Day surgery (SDC) | payer OTHER ==
[2018-01-16 13:00] VITALS: Ht 175.3 cm; Wt 73.6 kg
[~2018-01-20] VITALS: Ht 175.3 cm; Wt 73.6 kg
[~2018-01-20] MED LIST changes: -BCTROWC TOP; -CALC600T9 PO; +FERR142T PO; +FLV1 PO; +FURO-85 PO; +LIDOCAINE HCL 2% 2 ML VIAL (20MG/ML) ONE; -LSX20 PO; +METH2.5T PO; +MIDAZOLAM HCL 1 MG/ML 2ML VIAL ONE; -ONDA4TAB46 PO; +PROPOFOL IV EMULSION 10 MG/ML 20 ML VIAL IV ONE; -SDMC1 PO; +SODI1TAB PO; +SODIUM CHLORIDE 0.9% 500ML 500 ML IV ONE; -VNFI IV
[2018-01-20 10:38] VITALS: TEMP 37.3
--- NOTE | 2018-01-20 11:05 | Endo History and Physical ---
History & Physical Date of Service: Jan 20, 2018. Chief Complaint: DYSPHAGIA Referring Physician: DR. MILAN History of Present Illness 62 yo CM who presents for EGD secondary to dysphagia. Past Medical History Gastrointestinal Disorder, High Cholesterol Past Surgical History Hx Cardiac Surgery: No Hx Internal Defibrillator: No Hx Pacemaker: No Hx Abdominal Surgery: Yes (APPY, PARTIAL COLECTOMY WITH ILEOSTOMY, ILEOSTOMY REVERSAL) Hx of Implantable Prosthesis: No Hx Post-Op Nausea and Vomiting: No Hx Cancer Surgery: No Hx Thoracic Surgery: No Hx Orthopedic: No Hx Urinary Tract Surgery: No Family History IBD Social History Smoking Status: Never Smoker Hx Substance Use: No Hx Alcohol Use: Yes (BEER OR WINE ONCE A WEEK) Allergies Coded Allergies: Metronidazole (Verified Allergy, Unknown, NUMBNESS - IV FORMULATION, ) Zolpidem (Verified Allergy, Unknown, UNKNOWN, 01/16/18) CAUSED HALLUCINATIONS Prednisone (Verified Adverse Reaction, Severe, high blood sugar, 01/16/18) Pork (Verified Adverse Reaction, Intermediate, GI SYMPTOMS, 01/16/18) Aspirin (Verified Adverse Reaction, Mild, Stomach pain, 01/16/18) Pork (Porcine) Protein (Verified Adverse Reaction, Mild, GI SYMPTOMS, 01/20) Ibuprofen (Verified Adverse Reaction, Unknown, GI UPSET, 01/16/18) Current Medications Reported Home Medications Medications Dose Route/Sig Max Daily Dose Days Date Category Slow Fe (Ferrous Sulfate) 142 Mg Tab 1 Tab PO DAILY 01/16/18 Reported Methotrexate (Methotrexate Sodium) 2.5 Mg Tab 3 Tab PO WK 01/16/18 Reported Folic Acid 1 Mg Tab 1 Tab PO QAM 01/16/18 Reported Sodium Chloride 1 Gm Tab 1 Tab PO TID 01/16/18 Reported Lasix (Furosemide) 20 Mg Tab 20 Mg PO QAM 01/16/18 Reported Gabapentin 100 Mg Cap 100 Mg PO HS PRN 05/15/17 Reported Levothyroxine Sodium 50 Mcg Tab 50 Mcg PO QAM 04/02/17 Reported Pantoprazole Sodium (Pantoprazole) 40 Mg Tab 40 Mg PO Q2D 04/02/17 Reported Ascorbic Acid 500 Mg Tab 500 Mg PO NOON 04/16/16 Reported Centrum (Multiple Vitamins W/ Minerals) 1 Tab Tab 1 Tab PO NOON 04/16/16 Reported Vital Signs Weight (Kilograms): 73.64 Height (Feet): 5 Height (Inches): 9 Date Time Temp Pulse Resp B/P (MAP) Pulse Ox O2 Delivery O2 Flow Rate FiO2 01/20/18 10:38 37.3 102 20 145/77 (99) 100 Room Air Physical Exam General Appearance: WD/WN, no apparent distress Respiratory/Chest: Auscultation: breath sounds normal Cardiovascular: Heart Auscultation: RRR Abdomen: Bowel Sounds: normal Inspection & Palpation: soft, non-distended, no tenderness, guarding & rebound Assessment and Plan Assessment: 62 yo CM who presents for EGD secondary to dysphagia. Plan: Proceed with EGD.
--- NOTE | 2018-01-20 11:27 | GI REPORT ---
Procedure Date: 01/20/2018 10:40 AM Procedure: Upper GI endoscopy Indications: Dysphagia Medicines: Monitored Anesthesia Care Complications: No immediate complications. Estimated Blood Loss: Estimated blood loss: none. Procedure: Pre-Anesthesia Assessment: - Prior to the procedure, a History and Physical was performed, and patient medications and allergies were reviewed. The patient's tolerance of previous anesthesia was also reviewed. The risks and benefits of the procedure and the sedation options and risks were discussed with the patient. All questions were answered, and informed consent was obtained. Prior Anticoagulants: The patient has taken no previous anticoagulant or antiplatelet agents. ASA Grade Assessment: II - A patient with mild systemic disease. After reviewing the risks and benefits, the patient was deemed in satisfactory condition to undergo the procedure. After obtaining informed consent, the endoscope was passed under direct vision. Throughout the procedure, the patient's blood pressure, pulse, and oxygen saturations were monitored continuously. The On-site loaner was introduced through the mouth, and advanced to the second part of duodenum. The upper GI endoscopy was accomplished without difficulty. The patient tolerated the procedure well. Findings: One benign-appearing, intrinsic stenosis was found. This stenosis was moderately severe and measured 1.4 cm (inner diameter) x less than one cm (in length). The stenosis was traversed. A TTS dilator was passed through the scope. Dilation with a 15-16.5-18 mm balloon dilator was performed to 18 mm. The dilation site was examined and showed complete resolution of luminal narrowing. The stomach was normal. The examined duodenum was normal. Impression: - Benign-appearing esophageal stenosis. Dilated. - Normal stomach. - Normal examined duodenum. - No specimens collected. Recommendation: - Resume previous diet. - Continue present medications. - Repeat upper endoscopy PRN for retreatment. - Return to GI clinic as previously scheduled. Niko Martin DO 01/20/2018 11:27:09 AM This report has been signed electronically. Note Initiated On: 01/20/2018 10:40 AM I attest to the content of the Intraoperative Record and orders documented therein, exceptions below
--- NOTE | 2018-01-20 11:27 | Discharge Instructions ---
Endoscopy Patient Instructions Date / Procedure(s) Performed Jan 20, 2018. EGD Allergy Information Coded Allergies: Metronidazole (Verified Allergy, Unknown, NUMBNESS - IV FORMULATION, ) Zolpidem (Verified Allergy, Unknown, UNKNOWN, 01/16/18) CAUSED HALLUCINATIONS Prednisone (Verified Adverse Reaction, Severe, high blood sugar, 01/16/18) Pork (Verified Adverse Reaction, Intermediate, GI SYMPTOMS, 01/16/18) Aspirin (Verified Adverse Reaction, Mild, Stomach pain, 01/16/18) Pork (Porcine) Protein (Verified Adverse Reaction, Mild, GI SYMPTOMS, 01/20) Ibuprofen (Verified Adverse Reaction, Unknown, GI UPSET, 01/16/18) Discharge Date / Findings Jan 20, 2018. Esophageal stricture s/p dilation Medication Instructions OK to resume all medications today as prescribed Reported Home Medications Medications Dose Route/Sig Max Daily Dose Days Date Category Slow Fe (Ferrous Sulfate) 142 Mg Tab 1 Tab PO DAILY 01/16/18 Reported Methotrexate (Methotrexate Sodium) 2.5 Mg Tab 3 Tab PO WK 01/16/18 Reported Folic Acid 1 Mg Tab 1 Tab PO QAM 01/16/18 Reported Sodium Chloride 1 Gm Tab 1 Tab PO TID 01/16/18 Reported Lasix (Furosemide) 20 Mg Tab 20 Mg PO QAM 01/16/18 Reported Gabapentin 100 Mg Cap 100 Mg PO HS PRN 05/15/17 Reported Levothyroxine Sodium 50 Mcg Tab 50 Mcg PO QAM 04/02/17 Reported Pantoprazole Sodium (Pantoprazole) 40 Mg Tab 40 Mg PO Q2D 04/02/17 Reported Ascorbic Acid 500 Mg Tab 500 Mg PO NOON 04/16/16 Reported Centrum (Multiple Vitamins W/ Minerals) 1 Tab Tab 1 Tab PO NOON 04/16/16 Reported Provider Instructions Activity Restrictions - No exercising or heavy lifting for 24 hours. - Do not drink alcohol the day of the procedure. - Do not drive a car or operate machinery until the day after the procedure. - Do not make any important decisions or sign important papers in 24 hours after the procedure. Following Day: - Return to full activity which may include returning to work/school. Diet Start your diet with liquids and light foods (jello, soup, juice, toast). Then eat your usual diet if not nauseated. Treatment For Common After Affects For mild abdominal pain, bloating, or excessive gas: - Rest - Eat lightly - Lie on right side Follow-Up Information Follow-up with DR. MILAN as scheduled Anesthesia Information What You Should Know You have had a procedure that required some medicine to reduce anxiety and discomfort. This treatment is called moderate sedation. After receiving the treatment, you may be sleepy, but you will be able to breathe on your own. The effects of the treatment may last for several hours. Follow these instructions along with Activity/Diet recommendations noted above: * Do NOT do anything where dizziness or clumsiness would be dangerous. * Rest quietly at home today, then you can be up and about tomorrow. * Have a responsible person stay with you the rest of today. * You may have had an I.V. today. If so, you may take the dressing off later today. Recommendations Call your doctor if: * Trouble breathing * Continuous vomiting for more than 24 hours * Temperature above 101 degrees * Severe abdominal pain or bloating * Pain not relieved by pain medicine ordered * There is increased drainage or redness from any incision * A large amount of rectal bleeding greater than 2-3 tablespoons. (If you had a polyp/s removed or have hemorrhoids, a small amount of blood - from the rectum is to be expected.) * You have any unanswered questions or concerns. IN THE EVENT OF A SERIOUS EMERGENCY, GO TO THE NEAREST EMERGENCY ROOM Your discharge instructions were prepared by provider Niko Martin. Patient Instructions Signature Page [place] Patient (or Guardian) Signature/Date: I have read and understand the instructions given to me by my caregivers. Caregiver/RN/Doctor Signature/Date: The above-named patient and/or guardian has received patient instructions on this date. + Original Patient Signature Page (only) stays with chart. Please make copy for patient.
[2018-01-20 11:56] VITALS: BP 130/66; PULSE 91; O2SAT 100
--- NOTE | 2018-01-20 12:37 | Anesthesiology Progress Note ---
Anesthesia Post Op Note Date & Time Jan 20, 2018 at 12:37 Vital Signs Pain Intensity: 0 Vital Signs Past 12 Hours Date Time Temp Pulse Resp B/P (MAP) Pulse Ox O2 Delivery O2 Flow Rate FiO2 01/20/18 11:56 91 18 130/66 (87) 100 Room Air 01/20/18 11:41 94 18 132/74 (93) 98 Room Air 01/20/18 11:26 98 16 122/60 (80) 98 Room Air 01/20/18 10:38 37.3 102 20 145/77 (99) 100 Room Air Notes Mental Status: alert / awake / arousable, participated in evaluation Pt Amnestic to Procedure: Yes Nausea / Vomiting: adequately controlled Pain: adequately controlled Airway Patency, RR, SpO2: stable & adequate BP & HR: stable & adequate Hydration State: stable & adequate Anesthetic Complications: no major complications apparent
== END | disposition home or self-care (01) ==
LOC: C.GI 10:19
PROVIDERS: ATTEND Internal Medicine
DX: R13.10 Dysphagia, unspecified (principal); K50.90 Crohn's disease, unspecified, without complications; M45.9 Ankylosing spondylitis of unspecified sites in spine; E78.00 Pure hypercholesterolemia, unspecified; Z90.49 Acquired absence of other specified parts of digestive tract; Z88.6 Allergy status to analgesic agent; Z88.8 Allergy status to other drugs, medicaments and biological substances

== ENCOUNTER → 2018-02-07 | Outpatient (CLI) | payer OTHER ==
[~2018-02-07] MED LIST changes: -LIDOCAINE HCL 2% 2 ML VIAL (20MG/ML) ONE; -MIDAZOLAM HCL 1 MG/ML 2ML VIAL ONE; -PROPOFOL IV EMULSION 10 MG/ML 20 ML VIAL IV ONE; -SODIUM CHLORIDE 0.9% 500ML 500 ML IV ONE
--- NOTE | 2018-02-07 11:05 | DIAGNOSTIC IMAGING REPORT ---
CT OF THE CHEST WITHOUT IV CONTRAST CLINICAL HISTORY: Pulmonary nodule. COMPARISON STUDY: Chest CT December 06, 2015 and January 29, 2017. CT DOSE: 254.28 mGycm TECHNIQUE: Axial images of the chest were obtained without IV contrast. Images were reviewed in the axial, sagittal, and coronal planes. IV contrast was not administered for this examination. A dose lowering technique was utilized adhering to the principles of ALARA. FINDINGS: No enlarged axillary, mediastinal or hilar lymph nodes are present. The size of the heart is normal. There is no pericardial effusion. Central airways are patent. No consolidation to suggest pneumonia. Multiple tiny pulmonary nodules are unchanged since earlier exam. These are benign given stability. No new nodules are present. No pneumothorax or pleural effusion is present. There are no suspicious osseous lesions are present. Gallstone is noted within the gallbladder. IMPRESSION: 1. No significant change in multiple tiny pulmonary nodules which are considered benign given stability. No suspicious findings within the chest. 2. Cholelithiasis. Electronically signed by: Edgar Maynard M.D. 02/07/2018 11:03 AM Dictated Date/Time: 02/07/2018 10:40 AM
== END | disposition home or self-care (01) ==
LOC: C.CTS 09:39
PROVIDERS: ATTEND Internal Medicine
DX: R91.1 Solitary pulmonary nodule (principal); K80.20 Calculus of gallbladder without cholecystitis without obstruction

== ENCOUNTER 2024-09-19 10:48 | Inpatient (IN) ==
[2024-09-19] MEDS: OPTIRAY 320 125ml IV ONE (11:23)
[2024-09-19 11:38] LABS: Base Excess VBG -0.3 mEq/L; HCO3 VBG 24 mmol/L; Oxygen Saturation VBG 71.1 %; PCO2 VBG 38 mmHg (38-50); PO2 VBG 38 mmHg; pH VBG 7.41 (7.36-7.41)
[2024-09-19 11:41] LABS: Basophils # (auto) 0.05 K/uL (0.00-0.20); Basophils % (auto) 0.5 %; Eosinophils # (auto) 0.05 K/uL (0.00-0.50); Eosinophils % (auto) 0.5 %; Hemoglobin 13.5 g/dl (14.0-18.0); Immature Granulocytes # (auto) 0.04 K/uL (0.01-0.20); Immature Granulocytes % (auto) 0.4 %; Lymphocytes % (auto) 20.2 %; Mean Corpuscular Hemoglobin 29.8 pg (25.0-34.0); Mean Corpuscular Hgb Conc 35.5 g/dL (32.0-36.0); Mean Corpuscular Volume 83.9 fL (80.0-100.0); Mean Platelet Volume 9.1 fL (9.4-12.4); Monocytes # (auto) 1.28 K/uL (0.11-0.59); Monocytes % (auto) 12.3 %; Neutrophils # (auto) 6.86 K/uL (1.40-6.50); Neutrophils % (auto) 66.1 %; Platelet Count 246 K/uL (130-400); RDW Coefficient of Variation 12.2 % (11.5-14.5); RDW Standard Deviation 37.1 fL (36.4-46.3); Red Blood Count 4.53 M/uL (4.70-6.10); White Blood Count 10.38 K/ul (4.8-10.8)
--- NOTE | 2024-09-19 11:43 | CT Scan Report ---
UNENHANCED CT OF THE BRAIN; CT ANGIOGRAM OF THE BRAIN; CT ANGIOGRAM OF THE NECK CLINICAL HISTORY: Change in mental status. COMPARISON STUDY: CT of the brain dated 01/08/2019 TECHNIQUE: Unenhanced axial CT scan of the brain is performed. Subsequently, following the IV adminis tration of 112 of [employer] [address], CT angiogram of the head and neck was performed from the aortic arch t o the vertex. Images are reviewed in the axial, sagittal, and coronal planes. 3-D MIPS images are cre ated and assessed. IV contrast was administered without complication. All measurements were calculate d based on NASCET criteria. A dose lowering technique was utilized adhering to the principles of ALA RA. CT DOSE: 1349.92 mGy.cm FINDINGS: Brain parenchyma: There is age-related involutional change noted minimal microangiopathic disease. Th ere is no hemorrhage, mass effect, or evidence of acute territorial ischemia by CT criteria. There is no evidence of enhancing mass lesion on the angiogram phase images. The ventricles, sulci, and ciste rns are prominent secondary to involutional change. Ramirez-white matter differentiation is preserved. N o extra-axial fluid collection is seen. Thoracic aorta: Visualized portions of the thoracic aorta are normal in caliber. The aortic arch demo nstrates standard 3-vessel anatomy. Right carotid arterial system: The right common carotid artery is widely patent. There is atheroscler otic plaque in the carotid bulb which causes approximately 50% focal stenosis of the origin of the ri ght internal carotid artery as seen on image #230. The remainder of the internal and external carotid arteries are patent. Left carotid arterial system: The left common carotid artery is widely patent, as are the left food and beverage intern al and external carotid arteries. Calcified plaque is seen in the carotid bulb. Vertebral arteries: The vertebral arteries are patent bilaterally noted left-sided dominance. Subclavian arteries: Widely patent bilaterally. Intracranial vasculature: There is atherosclerotic calcification of the cavernous carotid arteries. T he internal carotid arteries are patent at the skull base, as are the anterior and middle cerebral ar teries bilaterally. The vertebrobasilar system and posterior cerebral arteries are widely patent. The left vertebral artery is dominant. The right vertebral artery is diminutive and largely terminates a s the PICA. There is no aneurysm, high-grade stenosis, or focal vessel cut off seen throughout the in tracranial circulation. Jugular veins: Patent bilaterally. Dural sinuses: Patent. Lung apices: Partially visualized upper lobe lung parenchyma appears clear. Soft tissues: The visualized pharyngeal soft tissues are normal in appearance noting angiographic pha se technique. The oropharyngeal airway appears widely patent. The thyroid gland is atrophic. The sali vary glands are normal in appearance. No cervical lymphadenopathy is seen. Skeletal structures: The skeletal structures are osteopenic. The calvarium appears intact. The cervic al spine is maintained noting mild multilevel spondylosis. Orbits: The bony orbits are intact. Orbital contents are normal as visualized noting bilateral ocular lens implants. Sinuses and mastoids: The paranasal sinuses are clear. The mastoid air cells are well pneumatized. IMPRESSION: 1. There is no hemorrhage, mass effect, or evidence of acute territorial ischemia by CT criteria. 2. Unremarkable CT angiogram of the brain. 3. There is approximately 50% focal stenosis at the origin of the right internal carotid artery. 4. Otherwise unremarkable CT angiogram of the neck. ACT 112: Negative or not required by law. Electronically signed by: Donald Lewis M.D. 09/19/2024 11:40 AM
[2024-09-19] MEDS: ACETAMINOPHEN 1,000 MG/100 ML VIAL IV STA (11:51)
[2024-09-19 12:04] LABS: Appearance Urine Clear (Clear); Bacteria Urine Automated None Seen (None Seen); Bilirubin Urine Negative (Negative); Blood Urine 3+ (Negative); Cast Urine Automated 0-2 /lpf (0-2); Color Urine Yellow; Epithelial Cell Urine Auto 0-2 /hpf (0-2); Glucose Urine UA Negative (Negative); Ketones Urine Negative (Negative); Leukocyte Esterase Urine Negative (Negative); Nitrite Urine Negative (Negative); Protein Urine 3+ (Negative); RBC Urine Automated >20 /hpf (0-2); Specific Gravity Urine 1.033 (1.000-1.030); Urobilinogen Urine Negative (Negative); WBC Urine Automated 0-5 /hpf (0-5); pH Urine 8.5 (4.5-7.5)
[2024-09-19 12:18] LABS: Albumin Level 4.6 gm/dl (3.4-5.0); BUN Creatinine Ratio 11.5 (10-20); Bilirubin Direct 0.3 mg/dl (0-0.2); Bilirubin,Total 2.4 mg/dl (0.2-1.0); Calcium 9.5 mg/dl (8.6-10.3); Magnesium 1.8 mg/dl (1.7-2.4); Potassium 4.2 mmol/L (3.5-5.1)
[2024-09-19 12:21] LABS: Acetaminophen 7 ug/ml (10-30); Salicylate < 3.0 mg/dl (3.0-30)
[2024-09-19 12:23] LABS: Adenovirus PCR Not Detected (NotDetected); Bordetella parapertussis PCR Not Detected (NotDetected); Bordetella pertussis PCR Not Detected (NotDetected); Chlamydia pneumoniae PCR Not Detected (NotDetected); Coronavirus 229E PCR Not Detected (NotDetected); Coronavirus CoV-2 (COVID19)PCR Not Detected (NotDetected); Coronavirus HKU1 PCR Not Detected (NotDetected); Coronavirus NL63 PCR Not Detected (NotDetected); Coronavirus OC43PCR Not Detected (NotDetected); Human Metapneumovirus PCR Not Detected (NotDetected); Influenza A PCR Not Detected (NotDetected); Influenza B PCR Not Detected (NotDetected); Mycoplasma pneumoniae PCR Not Detected (NotDetected); Parainfluenza Virus 1 PCR Not Detected (NotDetected); Parainfluenza Virus 2 PCR Not Detected (NotDetected); Parainfluenza Virus 3 PCR Not Detected (NotDetected); Parainfluenza Virus 4 PCR Not Detected (NotDetected); Respiratory Syncytial VirusPCR Not Detected (NotDetected); Rhinovirus/Enterovirus PCR Not Detected (NotDetected)
[2024-09-19 12:24] LABS: Troponin I High Sensitivity 12.4 pg/ml (0-20)
[2024-09-19 12:28] LABS: INR 1.2 (0.9-1.1); Partial Thromboplastin Ratio 1.1; Partial Thromboplastin Time 29 Seconds (21-31); Prothrombin Time 12.9 Seconds (9.0-12.0)
[2024-09-19] MEDS: SODIUM CHLORIDE 0.9% 1,000 ML IV SCH (12:53)
[2024-09-19] MEDS: cefTRIAXone SODIUM 2,000 MG/50 ML BAG IV STA (13:21)
--- NOTE | 2024-09-19 13:21 | XRay Report ---
SINGLE VIEW CHEST CLINICAL HISTORY: Sepsis.. FINDINGS: An AP, portable, upright chest radiograph is compared to study dated 12/05/2022 and correlat ed with chest CT dated 02/07/2018. The cardiomediastinal silhouette is unremarkable noting atheroscle rotic calcification of the thoracic aorta. Chronic interstitial thickening is similar to previous. Th ere is bibasilar scarring/atelectasis. No airspace consolidation or large pleural effusion is identif ied. There is no pneumothorax. The skeletal structures appear osteopenic. The bony thorax is grossly intact. Arthritic change is seen in the shoulders. IMPRESSION: No active disease in the chest. ACT 112: Negative or not required by law. Electronically signed by: Donald Lewis M.D. 09/19/2024 1:19 PM
[2024-09-19] MEDS: ONDANSETRON INJ 2 MG/ML 2 ML VIAL ONE ×2 (13:26→14:03)
[2024-09-19] MEDS: LORazepam 2 MG/1 ML VIAL IV STA (13:27)
[2024-09-19] MEDS: MoRPHine SULFATE 4 MG/ML 1 ML CARP\\VIAL IV STA (13:28)
[2024-09-19] MEDS ORDERED: AMPICILLIN/SULBACTAM SOD 3,000 MG/100 ML BAG IV STA (14:06)
[2024-09-19] MEDS ORDERED: VANCOMYCIN CONSULT ACTIVE PRN ×2 (14:06→16:19)
--- NOTE | 2024-09-19 14:18 | History & Physical Report ---
Date of Service September 19, 2024 Assessment & Plan (1) Meningitis: Plan: Acute onset of fever (105 F), confusion, vomiting, and altered mental status the evening of 09/18 into the morning of 09/19 Stroke alert was called in the ED and head/neck imaging were obtained; however, given fever, stroke is lower in the differential No leukocytosis; however, patient was febrile at 39.1 C on arrival Vancomycin + Rocephin + Unasyn + acyclovir given in the ED Tickborne panel ordered, pending Brain MRI w/wo ordered, pending LP performed in the ED; CSF fluids pending, however initial CSF total protein elevated at 84.3; CSF glucose WNL DDx at this time includes encephalitis, meningitis, and tickborne illness (among other etiologies) While no nuchal rigidity on physical exam (negative Brudzinski sign), suspect viral meningitis Continue acyclovir 10 mg/kg q8h Continue broad-spectrum abx for now: Vancomycin 1250mg q12h Ceftriaxone 2000 mg q12h Ampicillin 2000 mg q4h Acetaminophen 1000 mg IV q8h as needed for fever/pain Morphine as needed for breakthrough pain IV antiemetics as needed Infectious disease consult appreciated Agreed with dexamethasone ID will plan to see the patient on Saturday; please see Dr. Webster's attestation for any additional details regarding conversation Decadron 10 mg IV q6h x 4 days BSG checks q8h in setting of high-dose steroid use A.m. CBC, CMP (2) Hyponatremia: Plan: NA 128 on arrival NSS given in the ED SIADH labs ordered, pending (hx of elevated random urine sodium in 2017) Will defer further fluids until labs come back Continue sodium chloride 1000 mg p.o. TID (3) Altered mental status: Plan Disposition: Admit to PCU telemetry Full code Advance to clear liquid diet once patient is less altered VTE PPx: Lovenox 40 mg SQ q24h History of Present Illness Chief Complaint: Fever, altered mental status Primary Care Provider: Oren Sol MD Ha is a 69-year-old male with PMH of GERD, esophageal stenosis, Crohn's ileitis, hypothyroidism, dyslipidemia, and anxiety. He presented on 09/19 for acute onset of fever (105 F), confusion, vomiting, and headache. Patient is altered and unable to provide a history at the time of admission. Patient's (Rafia) is present at the bedside and provides history. She reports that he began to have a migraine headache yesterday around 1 PM. He does have a history of migraine headaches, and she reports that he did see "dancing lights" in his usual aura. He went to lie down and took Excedrin x 2. reports that he was "down and out" most of the day yesterday. He did not eat much for dinner. He also did not take his usual Lasix last night; did take his sodium tablet. Then, overnight, he kept complaining that his head hurt, and went to the bathroom several times to vomit. woke up around 8:45 AM, and patient was very confused. She took his temperature, and reports that it was 104.9 F. He was also not answering questions correctly. For instance, asked, "where does it hurt?", And he responded "yes". He was giving very vague answers, and when handed him Gatorade with the lid off, he tried to take the lid off repeatedly even though it was already off. Patient's gave him 2 Tylenol, but upon recheck his temperature was still around 105 F, and she drove him to the ED. Stroke alert was called in the ED. denies any history of stroke, or facial droop, slurred speech, unilateral deficits today. No history of seizures. She did note that his gait was slightly off balance, and he had trouble putting his socks on this morning. In regard to his migraines, he had 1 recently that was mild, then had a big 1 in June that involved low-grade fever and vomiting x 1. He does have a prodrome of flashing lights prior to migraines. However, reports that he has never had significant confusion or fever up to 105 degrees with prior migraines. No sick contacts, however patient has been visiting [facility] to help with 's father in the hospital, and may have been exposed to certain germs. also reports that he had a cold last week, and had fatigue and congestion. He does have a history of thyroid issues and low sodium. No history of herpes, varicella, or shingles. While did not notice any rashes, [place] and has been exposed to ticks in the past. believes he is up-to-date on immunizations, but notes that he did get very sick after having a flu shot several years ago. No recent dental cleanings, but he did complain about his teeth hurting last week. Patient takes prednisone 2.5 mg every other day due to his ankylosing spondylolysis, and occasional difficulties with walking. Patient is febrile at 37.8 C at the time of admission; vitals otherwise stable. ED course: Rocephin 2000 mg IV Vancomycin 1500 mg IV Unasyn 3000 mg IV Acyclovir 780 mg IV Acetaminophen 1000 mg IV Lorazepam 1 mg IV Morphine sulfate 4 mg IV Zofran 4 mg NSS 1000 mL at 125 mL/hr x 1 L Unable to obtain ROS from patient at this time However, confirms altered mental status, vomiting, fever, and confusion. Allergies Allergy/AdvReac Type Severity Reaction Status Date / Time metronidazole Allergy Intermediate NUMBNESS - Verified 09/17/24 15:15 IV FORMULATION zolpidem Allergy Intermediate HALLUCINATI Verified 09/17/24 15:15 ONS prednisone AdvReac Severe high blood Verified 09/17/24 15:15 sugar with high doses aspirin AdvReac Mild Stomach Verified 09/17/24 15:15 pain ibuprofen AdvReac Mild GI UPSET Verified 09/17/24 15:15 pork derived (porcine) AdvReac Mild GI SYMPTOMS Verified 09/17/24 15:15 Pork AdvReac Intermediate GI SYMPTOMS Uncoded 09/17/24 15:15 Home Medications Medication Instructions Recorded Confirmed Type ascorbic acid (vitamin C) 500 mg 500 mg PO DAILY 06/30/19 09/19/24 History tablet calcium 500 mg (as 1 tab PO DAILY 06/30/19 09/19/24 History carbonate)-vitamin D3 5 mcg (200 unit) tablet [id number]-wyris 300 mcg-K 60 1 tab PO DAILY 06/30/19 09/19/24 History mcg-lycop 600 mcg-lutein 300 mcg tablet (Centrum Silver Ultra Men's) ferrous sulfate 142 mg (45 mg 142 mg PO .every other day 08/04/20 09/19/24 History iron) tablet,extended release (Slow Fe) levothyroxine 75 mcg tablet 75 mcg PO QAM #90 tabs 04/13/24 09/19/24 Rx peg 3350-sod sulf,hvyfk-nsj-kmu See Rx Instructions PO .COMPLEX #2 09/09/24 09/19/24 Rx 178.7-7.3-0.5-1.12-0.9 gram oral mL soln (Suflave) sodium chloride 1,000 mg soluble 1,000 mg PO TID #270 tabs 09/10/24 09/19/24 Rx tablet furosemide 20 mg tablet 20 mg PO QPM 09/17/24 09/19/24 History mupirocin 2 % topical ointment 1 applic topical TID PRN Acne 09/17/24 09/19/24 History pantoprazole 40 mg tablet,delayed 40 mg PO QAM 09/17/24 09/19/24 History release prednisone 5 mg tablet 5 mg PO .Q OTHER DAY 09/19/24 09/19/24 History Past Med/Surg History Problem List (Updated 09/19/24 @ 18:40 by Maurisio Gordon PA-C) Meningitis Viral meningitis Headache (Acute) Fever (Acute) Altered mental status (Acute) Encephalitis (Acute) Altered mental status Left ear hearing loss ETD (eustachian tube dysfunction) Current use of proton pump inhibitor Vitamin D deficiency Crohn's ileitis Anemia Pneumonia Proteinuria (Chronic) Ankylosing spondylitis (Acute) Anxiety (Chronic) Dyslipidemia (Acute) Esophageal stenosis (Acute) GERD without esophagitis (Acute) Hypothyroidism (Acute) Osteopenia (Acute) Pulmonary nodule (Acute) BEING MONITORED GERD (gastroesophageal reflux disease) Diarrhea (Acute) Hyponatremia (Acute) Medical History Hx of migraines every few months Hx of Clostridium difficile infection (2018) treated Pulmonary nodule monitored Hx of Crohn's disease History of pneumonia (2019) GERD (gastroesophageal reflux disease) Hypothyroidism Arthritis prednisone Hearing loss Hyponatremia sodium chloride tid Anemia (~09/2013) Surgical History History of esophagogastroduodenoscopy (EGD) History of colonoscopy History of tooth extraction History of cataract surgery RT/LEFT History of tonsillectomy and adenoidectomy S/P partial colectomy (1998) due to crohn's History of reversal of ileostomy (1999) History of appendectomy Family History Mother Myocardial infarction Coronary heart disease Aunt Alzheimer disease Uncle Alzheimer disease Bladder cancer Diabetes Grandfather (Maternal) Coronary heart disease Father Dementia Denies family history of Colon cancer Ovarian cancer Prostate cancer Breast cancer Social History Smoking Status: Never smoker Second Hand Exposure: No; Do You Dip or Chew Tobacco: No; Hx Alcohol Use: Yes Alcohol type: beer and wine Hx Substance Use: No Preferred Language: Croatian Communication Ability: Effective Visual Impairment: No Limitations Hearing Ability: Normal Beam Racker Required: No Beliefs That Will Affect Care: Jew Jew Beliefs: worship marital status: Current Living Situation: Spouse current occupational status: retired Other Information That Helps Us Care for You: No Feels Safe at Home: Yes Safety Concerns: Feels Safe At This Time Childhood Exposure to Second-Hand Smoke: Yes Dental Care, Regularly: Yes Physical Activity Frequency: 1-2 Times per Week Seatbelt Use: always Sunscreen Use: No Assistive Devices: Glasses and Other Review of Systems Review of Systems: See HPI above Physical Exam Physical Exam: General: Lethargic; toxic appearing; altered; SpO2 100% on RA HEENT: normocephalic, atraumatic; no scleral icterus; PERRLA; unable to assess EOMs; unable to assess vision; hearing is intact; patient with poor dentition and dental caries, however oropharynx is without signs of erythema or infection Neck: supple; no lymphadenopathy; trachea midline; no nuchal rigidity appreciated Skin: warm, dry without signs of tenting; no cyanosis; no rashes, bruising, lesions, or erythema noted; of note, no rashes appreciated on the abdomen/flanks/back CV: chest wall NTP; RRR; S1/S2 normal; no murmurs/rubs/gallops; pulses intact and symmetric at radial, DP, and PT Lungs: no acute respiratory distress; symmetrical chest wall expansion; clear breath sounds across all lung bartlett w/o adventitious sounds; no wheezing ABD: Soft, NTP; BS present; no rebound/guarding; no distention MSK: no tics or fasciculations; no edema noted in the LEs b/l, nonerythematous; 2/5 faro dealer strength in the left hand, does not respond to gripping in the right hand Neuro: Patient is not oriented to name//location/month/purpose in the hospital; he responds "yes" inappropriately to questioning; no slurred speech, facial droop, or unilateral deficits appreciated; he only responds to certain commands, such as lightly gripping the fingers; however he does not respond to other commands such as "wiggle your toes"; unable to assess sensation; negative Brudzinski's sign and Kernig sign, however patient does endorse pain with b ending the neck to his chest Results & Data Results & Data Vital Signs (Past 12 Hours) Vital Signs Temp Pulse Pulse Resp BP BP Pulse Ox 09/19/24 12:49 37.8 C H 09/19/24 12:47 77 20 147/60 H 99 09/19/24 12:17 79 09/19/24 12:04 78 18 155/44 H 99 09/19/24 11:47 84 17 100 09/19/24 11:47 84 18 138/59 L 100 09/19/24 11:04 39.1 C H 87 19 137/82 96 O2 Del Method 09/19/24 12:49 09/19/24 12:47 Room Air 09/19/24 12:17 09/19/24 12:04 Room Air 09/19/24 11:47 Room Air 09/19/24 11:47 Room Air 09/19/24 11:04 Room Air Laboratory Results Abnormal lab results 09/19/24 09/19/24 09/19/24 Range/Units 11:15 11:23 11:46 RBC 4.53 L (4.70-6.10) M/uL Hgb 13.5 L (14.0-18.0) g/dl Hct 38.0 L (42.0-52.0) % MPV 9.1 L (9.4-12.4) fL Neut # (Auto) 6.86 H (1.40-6.50) K/uL [place] # (Auto) 1.28 H (0.11-0.59) K/uL PT 12.9 H (9.0-12.0) Seconds INR 1.2 H (0.9-1.1) Sodium 128 L (136-145) mmol/L Chloride 95 L (98-107) mmol/L Glucose 103 H (70-99(Fasting)) mg/dl POC Glucose 108 H (70-99) mg/dl Total Bilirubin 2.4 H (0.2-1.0) mg/dl Direct Bilirubin 0.3 H (0-0.2) mg/dl Urine pH 8.5 H (4.5-7.5) Ur Specific [place] 1.033 H (1.000-1.030) Urine Protein 3+ H (Negative) Urine Blood 3+ H (Negative) Urine RBC (Auto) >20 H (0-2) /hpf Salicylates < 3.0 L (3.0-30) mg/dl Acetaminophen 7 L (10-30) ug/ml Diagnostic Findings Chest X-Ray 09/19/24 11:13 SINGLE VIEW CHEST CLINICAL HISTORY: Sepsis.. FINDINGS: An AP, portable, upright chest radiograph is compared to study dated and correlated with chest CT dated 02/07/2018. The cardiomediastinal silhouette is unremarkable noting atherosclerotic calcification of the thoracic aorta. Chronic interstitial thickening is similar to previous. There is bibasilar scarring/atelectasis. No airspace consolidation or large pleural effusion is identified. There is no pneumothorax. The skeletal structures appear osteopenic. The bony thorax is grossly intact. Arthritic change is seen in the shoulders. IMPRESSION: No active disease in the chest. ACT 112: Negative or not required by law. Electronically signed by: Donald Lewis M.D. 09/19/2024 1:[address] 09/19/24 11:[address] OF THE BRAIN; CT ANGIOGRAM OF THE BRAIN; CT ANGIOGRAM OF THE NECK CLINICAL HISTORY: Change in mental status. COMPARISON STUDY: CT of the brain dated 01/08/2019 TECHNIQUE: Unenhanced axial CT scan of the brain is performed. Subsequently, following the IV administration of 112 of Optiray 320, CT angiogram of the head and neck was performed from the aortic arch to the vertex. Images are reviewed in the axial, sagittal, and coronal planes. 3-D MIPS images are created and assessed. IV contrast was administered without complication. All measurements were calculated based on NASCET criteria. A dose lowering technique was utilized adhering to the principles of ALARA. CT DOSE: 1349.92 mGy.cm FINDINGS: Brain parenchyma: There is age-related involutional change noted minimal microangiopathic disease. There is no hemorrhage, mass effect, or evidence of acute territorial ischemia by CT criteria. There is no evidence of enhancing mass lesion on the angiogram phase images. The ventricles, sulci, and cisterns are prominent secondary to involutional change. Ramirez-white matter diff erentiation is preserved. No extra-axial fluid collection is seen. Thoracic aorta: Visualized portions of the thoracic aorta are normal in caliber. The aortic arch demonstrates standard 3-vessel anatomy. Right carotid arterial system: The right common carotid artery is widely patent. There is atherosclerotic plaque in the carotid bulb which causes approximately 50% focal stenosis of the origin of the right internal carotid artery as seen on image #230. The remainder of the internal and external carotid arteries are patent. Left carotid arterial system: The left common carotid artery is widely patent, as are the left internal and external carotid arteries. Calcified plaque is seen in the carotid bulb. Vertebral arteries: The vertebral arteries are patent bilaterally noted left-sided dominance. Subclavian arteries: Widely patent bilaterally. Intracranial vasculature: There is atherosclerotic calcification of the cavernous carotid arteries. The internal carotid arteries are patent at the skull base, as are the anterior and middle cerebral arteries bilaterally. The vertebrobasilar system and posterior cerebral arteries are widely patent. The left vertebral artery is dominant. The right vertebral artery is diminutive and largely terminates as the PICA. There is no aneurysm, high-grade stenosis, or focal vessel cut off seen throughout the intracranial circulation. Jugular veins: Patent bilaterally. Dural sinuses: Patent. Lung apices: Partially visualized upper lobe lung parenchyma appears clear. Soft tissues: The visualized pharyngeal soft tissues are normal in appearance noting angiographic phase technique. The oropharyngeal airway appears widely patent. The thyroid gland is atrophic. The salivary glands are normal in appearance. No cervical lymphadenopathy is seen. Skeletal structures: The skeletal structures are osteopenic. The calvarium appears intact. The cervical spine is maintained noting mild multilevel spondylosis. Orbits: The bony orbits are intact. Orbital contents are normal as visualized noting bilateral ocular lens implants. Sinuses and mastoids: The paranasal sinuses are clear. The mastoid air cells are well pneumatized. IMPRESSION: 1. There is no hemorrhage, mass effect, or evidence of acute territorial ischemia by CT criteria. 2. Unremarkable CT angiogram of the brain. 3. There is approximately 50% focal stenosis at the origin of the right internal carotid artery. 4. Otherwise unremarkable CT angiogram of the neck. ACT 112: Negative or not required by law. Electronically signed by: Donald Lewis M.D. 09/19/2024 11:40 AM Head CTA 09/19/24 11:[address] OF THE BRAIN; CT ANGIOGRAM OF THE BRAIN; CT ANGIOGRAM OF THE NECK CLINICAL HISTORY: Change in mental status. COMPARISON STUDY: CT of the brain dated 01/08/2019 TECHNIQUE: Unenhanced axial CT scan of the brain is performed. Subsequently, following the IV administration of 112 of Optiray 320, CT angiogram of the head and neck was performed from the aortic arch to the vertex. Images are reviewed in the axial, sagittal, and coronal planes. 3-D MIPS images are created and assessed. IV contrast was administered without complication. All measurements were calculated based on NASCET criteria. A dose lowering technique was utilized adhering to the principles of ALARA. CT DOSE: 1349.92 mGy.cm FINDINGS: Brain parenchyma: There is age-related involutional change noted minimal microangiopathic disease. There is no hemorrhage, mass effect, or evidence of acute territorial ischemia by CT criteria. There is no evidence of enhancing mass lesion on the angiogram phase images. The ventricles, sulci, and cisterns are prominent secondary to involutional change. Ramirez-white matter differentiation is preserved. No extra-axial fluid collection is seen. Thoracic aorta: Visualized portions of the thoracic aorta are normal in caliber. The aortic arch demonstrates standard 3-vessel anatomy. Right carotid arterial system: The right common carotid artery is widely patent. There is atherosclerotic plaque in the carotid bulb which causes approximately 50% focal stenosis of the origin of the right internal carotid artery as seen on image #230. The remainder of the internal and external carotid arteries are patent. Left carotid arterial system: The left common carotid artery is widely patent, as are the left internal and external carotid arteries. Calcified plaque is seen in the carotid bulb. Vertebral arteries: The vertebral arteries are patent bilaterally noted left- sided dominance. Subclavian arteries: Widely patent bilaterally. Intracranial vasculature: There is atherosclerotic calcification of the cavernous carotid arteries. The internal carotid arteries are patent at the skull base, as are the anterior and middle cerebral arteries bilaterally. The vertebrobasilar system and posterior cerebral arteries are widely patent. The left vertebral artery is dominant. The right vertebral artery is diminutive and largely terminates as the PICA. There is no aneurysm, high-grade stenosis, or focal vessel cut off seen throughout the intracranial circulation. Jugular veins: Patent bilaterally. Dural sinuses: Patent. Lung apices: Partially visualized upper lobe lung parenchyma appears clear. Soft tissues: The visualized pharyngeal soft tissues are normal in appearance noting angiographic phase technique. The oropharyngeal airway appears widely patent. The thyroid gland is atrophic. The salivary glands are normal in appearance. No cervical lymphadenopathy is seen. Skeletal structures: The skeletal structures are osteopenic. The calvarium appears intact. The cervical spine is maintained noting mild multilevel spondylosis. Orbits: The bony orbits are intact. Orbital contents are normal as visualized noting bilateral ocular lens implants. Sinuses and mastoids: The paranasal sinuses are clear. The mastoid air cells are well pneumatized. IMPRESSION: 1. There is no hemorrhage, mass effect, or evidence of acute territorial ischemia by CT criteria. 2. Unremarkable CT angiogram of the brain. 3. There is approximately 50% focal stenosis at the origin of the right internal carotid artery. 4. Otherwise unremarkable CT angiogram of the neck. ACT 112: Negative or not required by law. Electronically signed by: Donald Lewis M.D. 09/19/2024 11:40 AM Neck CTA 09/19/24 11:[address] OF THE BRAIN; CT ANGIOGRAM OF THE BRAIN; CT ANGIOGRAM OF THE NECK CLINICAL HISTORY: Change in mental status. COMPARISON STUDY: CT of the brain dated 01/08/2019 TECHNIQUE: Unenhanced axial CT scan of the brain is performed. Subsequently, following the IV administration of 112 of Optiray 320, CT angiogram of the head and neck was performed from the aortic arch to the vertex. Images are reviewed in the axial, sagittal, and coronal planes. 3-D MIPS images are created and assessed. IV contrast was administered without complication. All measurements were calculated based on NASCET criteria. A dose lowering technique was utilized adhering to the principles of ALARA. CT DOSE: 1349.92 mGy.cm FINDINGS: Brain parenchyma: There is age-related involutional change noted minimal microangiopathic disease. There is no hemorrhage, mass effect, or evidence of acute territorial ischemia by CT criteria. There is no evidence of enhancing mass lesion on the angiogram phase images. The ventricles, sulci, and cisterns are prominent secondary to involutional change. Ramirez-white matter differentiation is preserved. No extra-axial fluid collection is seen. Thoracic aorta: Visualized portions of the thoracic aorta are normal in caliber. The aortic arch demonstrates standard 3-vessel anatomy. Right carotid arterial system: The right common carotid artery is widely patent. There is atherosclerotic plaque in the carotid bulb which causes approximately 50% focal stenosis of the origin of the right internal carotid artery as seen on image #230. The remainder of the internal and external carotid arteries are patent. Left carotid arterial system: The left common carotid artery is widely patent, as are the left internal and external carotid arteries. Calcified plaque is seen in the carotid bulb. Vertebral arteries: The vertebral arteries are patent bilaterally noted left- sided dominance. Subclavian arteries: Widely patent bilaterally. Intracranial vasculature: There is atherosclerotic calcification of the cavernous carotid arteries. The internal carotid arteries are patent at the skull base, as are the anterior and middle cerebral arteries bilaterally. The vertebrobasilar system and posterior cerebral arteries are widely patent. The left vertebral artery is dominant. The right vertebral artery is diminutive and largely terminates as the PICA. There is no aneurysm, high-grade stenosis, or focal vessel cut off seen throughout the intracranial circulation. Jugular veins: Patent bilaterally. Dural sinuses: Patent. Lung apices: Partially visualized upper lobe lung parenchyma appears clear. Soft tissues: The visualized pharyngeal soft tissues are normal in appearance noting angiographic phase technique. The oropharyngeal airway appears widely patent. The thyroid gland is atrophic. The salivary glands are normal in appearance. No cervical lymphadenopathy is seen. Skeletal structures: The skeletal structures are osteopenic. The calvarium appears intact. The cervical spine is maintained noting mild multilevel spondylosis. Orbits: The bony orbits are intact. Orbital contents are normal as visualized noting bilateral ocular lens implants. Sinuses and mastoids: The paranasal sinuses are clear. The mastoid air cells are well pneumatized. IMPRESSION: 1. There is no hemorrhage, mass effect, or evidence of acute territorial ischemia by CT criteria. 2. Unremarkable CT angiogram of the brain. 3. There is approximately 50% focal stenosis at the origin of the right internal carotid artery. 4. Otherwise unremarkable CT angiogram of the neck. ACT 112: Negative or not required by law. Electronically signed by: Donald Lewis M.D. 09/19/2024 11:40 AM ECG Additional Comments: ECG revealed NSR at 80 bpm; QTc 447 Code Status & VTE Plan Code Status Full code (patient does not exhibit medical capacity at this time, confirmed with patient's at the bedside; she reports there is no paperwork to the effect of a power of guard chief or advanced directive) VTE Prophylaxis Plan VTE Prophylaxis will be ordered: Yes Supervising Physician Co-Signing Physician Notes Patient seen and examined, chart reviewed, case discussed with [] LUZ and I agree with the assessment and plan as above except as otherwise noted Labs and images reviewed. I also had a conversation with the ID data quality consultant who indicated that our broad antibiotic/antiviral coverage as well as steroids would be appropriate for now as we await further results. Did suggest we could consider discussing with neuro and possibly obtaining an MRI. For now we will obtain the MRI with and without this evening and if any notable findings or any changes in overall condition, then will discuss with neuro. PG Care Time/CCT Total # of Minutes Spent Total Time Spent with Patient: Total time spent is greater than 50% in coordination of care (as documented) at patient's floor/unit and/or counseling patient: [place] [address] INT INP/OBS CARE 3/75MIN Patient Type Established Medical Decision Making High Complexity Diagnoses Meningitis G03.9 Hyponatremia E87.1 Altered mental status R41.82
[2024-09-19 14:27] LABS: Total Protein CSF 84.3 mg/dl (15-45)
[2024-09-19] MEDS: ACYCLOVIR SOD 780 MG in DEXTROSE 5% 250 ML IV ONE (14:50)
[2024-09-19] MEDS: AMPICILLIN 2,000 MG in SODIUM CHLOR 0.9% MINI-B 100 ML IV STA (14:50)
--- NOTE | 2024-09-19 14:54 | Emergency Department Note ---
History of Present Illness General Chief complaint: Flu Like Symptoms Stated complaint: MIGRAINE/HEAD PAIN, VOMITING, FEVER 105, CONFUSION Time Seen by Provider: 09/19/24 11:15 Source: family () History of Present Illness Provider complaint: Headache fever altered mental status Maximum Pain Intensity: 2 69-year-old male presents emergency department for headache fever and altered mental status. reports that the patient has long history of headaches and yesterday started getting headache. She reports that this morning he woke up was very confused and had a fever. No falls or traumas. No blood thinners. No cough or congestion. No nausea vomiting or diarrhea. reports that the patient sometimes acts like this when his sodium goes low. Home Medications Medication Instructions Recorded Confirmed Type ascorbic acid (vitamin C) 500 mg 500 mg PO DAILY 06/30/19 09/19/24 History tablet calcium 500 mg (as 1 tab PO DAILY 06/30/19 09/19/24 History carbonate)-vitamin D3 5 mcg (200 unit) tablet [id number]-ruavd 300 mcg-K 60 1 tab PO DAILY 06/30/19 09/19/24 History mcg-lycop 600 mcg-lutein 300 mcg tablet (Centrum Silver Ultra Men's) ferrous sulfate 142 mg (45 mg 142 mg PO .every other day 08/04/20 09/19/24 History iron) tablet,extended release (Slow Fe) levothyroxine 75 mcg tablet 75 mcg PO QAM #90 tabs 04/13/24 09/19/24 Rx peg 3350-sod sulf,[id number] See Rx Instructions PO .COMPLEX #2 09/09/24 09/19/24 Rx 178.7-7.3-0.5-1.12-0.9 gram oral mL soln (Suflave) sodium chloride 1,000 mg soluble 1,000 mg PO TID #270 tabs 09/10/24 09/19/24 Rx tablet furosemide 20 mg tablet 20 mg PO QPM 09/17/24 09/19/24 History mupirocin 2 % topical ointment 1 applic topical TID PRN Acne 09/17/24 09/19/24 History pantoprazole 40 mg tablet,delayed 40 mg PO QAM 09/17/24 09/19/24 History release prednisone 5 mg tablet 5 mg PO .Q OTHER DAY 09/19/24 09/19/24 History Allergies Allergy/AdvReac Type Severity Reaction Status Date / Time metronidazole Allergy Intermediate NUMBNESS - Verified 09/17/24 15:15 IV FORMULATION zolpidem Allergy Intermediate HALLUCINATI Verified 09/17/24 15:15 ONS prednisone AdvReac Severe high blood Verified 09/17/24 15:15 sugar with high doses aspirin AdvReac Mild Stomach Verified 09/17/24 15:15 pain ibuprofen AdvReac Mild GI UPSET Verified 09/17/24 15:15 pork derived (porcine) AdvReac Mild GI SYMPTOMS Verified 09/17/24 15:15 Pork AdvReac Intermediate GI SYMPTOMS Uncoded 09/17/24 15:15 Past Med/Surg History Problem List (Updated 09/19/24 @ 15:14 by Iam Engel MD) Headache (Acute) Fever (Acute) Altered mental status (Acute) Encephalitis (Acute) Altered mental status Left ear hearing loss ETD (eustachian tube dysfunction) Current use of proton pump inhibitor Vitamin D deficiency Crohn's ileitis Anemia Pneumonia Proteinuria (Chronic) Ankylosing spondylitis (Acute) Anxiety (Chronic) Dyslipidemia (Acute) Esophageal stenosis (Acute) GERD without esophagitis (Acute) Hypothyroidism (Acute) Osteopenia (Acute) Pulmonary nodule (Acute) BEING MONITORED GERD (gastroesophageal reflux disease) Diarrhea (Acute) Hyponatremia (Acute) Medical History Hx of migraines every few months Hx of Clostridium difficile infection (2018) treated Pulmonary nodule monitored Hx of Crohn's disease History of pneumonia (2019) GERD (gastroesophageal reflux disease) Hypothyroidism Arthritis prednisone Hearing loss Hyponatremia sodium chloride tid Anemia (~09/2013) Surgical History History of esophagogastroduodenoscopy (EGD) History of colonoscopy History of tooth extraction History of cataract surgery RT/LEFT History of tonsillectomy and adenoidectomy S/P partial colectomy (1998) due to crohn's History of reversal of ileostomy (1999) History of appendectomy Family History Mother Myocardial infarction Coronary heart disease Aunt Alzheimer disease Uncle Alzheimer disease Bladder cancer Diabetes Grandfather (Maternal) Coronary heart disease Father Dementia Denies family history of Colon cancer Ovarian cancer Prostate cancer Breast cancer Social History Smoking Status: Never smoker Second Hand Exposure: No; Do You Dip or Chew Tobacco: No; Hx Alcohol Use: Yes Alcohol type: beer and wine Hx Substance Use: No Preferred Language: [place] Communication Ability: Effective Visual Impairment: No Limitations Hearing Ability: Normal Corporate Development Analyst Required: No Beliefs That Will Affect Care: Baptist Baptist Beliefs: orthodox marital status: Current Living Situation: Spouse current occupational status: retired Feels Safe at Home: Yes Childhood Exposure to Second-Hand Smoke: Yes Dental Care, Regularly: Yes Physical Activity Frequency: 1-2 Times per Week Seatbelt Use: always Sunscreen Use: No Assistive Devices: Other Physical Exam Vital Signs Vital Signs - 24 hr 09/19/24 11:04 09/19/24 11:47 09/19/24 11:47 Temperature 39.1 C H Temperature Source Oral Pulse Rate 87 84 Pulse Rate [Apical] 84 Pulse Rate from SpO2 Sensor Respiratory Rate 19 18 17 Respiratory Effort / Characteristics Non-Labored Spontaneous Respiratory Depth Normal Blood Pressure 137/82 Blood Pressure [Left Arm] 138/59 L Blood Pressure Mean 100 Blood Pressure Mean [Left Arm] 85 Blood Pressure Position Sitting Blood Pressure Position [Left Arm] Semi-fowlers Pulse Oximetry 96 100 100 Oxygen Delivery Method Room Air Room Air Room Air Sepsis Recent Fever Within 48 Hours No Sepsis New/Unexplained Change in Mental Status No Sepsis Action Taken by Nursing No Action Required 09/19/24 12:04 09/19/24 12:17 09/19/24 12:45 Temperature Temperature Source Pulse Rate 79 Pulse Rate [Apical] 78 Pulse Rate from SpO2 Sensor Respiratory Rate 18 Respiratory Effort / Characteristics Respiratory Depth Blood Pressure 147/60 H Blood Pressure [Left Arm] 155/44 H Blood Pressure Mean 101 Blood Pressure Mean [Left Arm] 81 Blood Pressure Position Blood Pressure Position [Left Arm] Semi-fowlers Pulse Oximetry 99 Oxygen Delivery Method Room Air Sepsis Recent Fever Within 48 Hours Sepsis New/Unexplained Change in Mental Status Sepsis Action Taken by Nursing 09/19/24 12:45 09/19/24 12:45 09/19/24 12:47 Temperature Temperature Source Pulse Rate Pulse Rate [Apical] 77 Pulse Rate from SpO2 Sensor Respiratory Rate 20 Respiratory Effort / Characteristics Respiratory Depth Blood Pressure 147/60 H 147/60 H Blood Pressure [Left Arm] 147/60 H Blood Pressure Mean 101 101 Blood Pressure Mean [Left Arm] 89 Blood Pressure Position Blood Pressure Position [Left Arm] Pulse Oximetry 99 Oxygen Delivery Method Room Air Sepsis Recent Fever Within 48 Hours Sepsis New/Unexplained Change in Mental Status Sepsis Action Taken by Nursing 09/19/24 12:48 09/19/24 12:49 09/19/24 12:51 Temperature 37.8 C H Temperature Source Oral Pulse Rate 75 75 Pulse Rate [Apical] Pulse Rate from SpO2 Sensor 75 75 Respiratory Rate 14 19 Respiratory Effort / Characteristics Respiratory Depth Blood Pressure Blood Pressure [Left Arm] Blood Pressure Mean Blood Pressure Mean [Left Arm] Blood Pressure Position Blood Pressure Position [Left Arm] Pulse Oximetry 98 98 Oxygen Delivery Method Sepsis Recent Fever Within 48 Hours Sepsis New/Unexplained Change in Mental Status Sepsis Action Taken by Nursing 09/19/24 13:31 09/19/24 13:31 09/19/24 13:31 Temperature Temperature Source Pulse Rate Pulse Rate [Apical] Pulse Rate from SpO2 Sensor Respiratory Rate Respiratory Effort / Characteristics Respiratory Depth Blood Pressure 117/65 117/65 117/65 Blood Pressure [Left Arm] Blood Pressure Mean 67 67 67 Blood Pressure Mean [Left Arm] Blood Pressure Position Blood Pressure Position [Left Arm] Pulse Oximetry Oxygen Delivery Method Sepsis Recent Fever Within 48 Hours Sepsis New/Unexplained Change in Mental Status Sepsis Action Taken by Nursing 09/19/24 13:57 09/19/24 14:45 09/19/24 14:49 Temperature Temperature Source Pulse Rate Pulse Rate [Apical] 68 Pulse Rate from SpO2 Sensor 74 Respiratory Rate 17 Respiratory Effort / Characteristics Respiratory Depth Blood Pressure 114/73 Blood Pressure [Left Arm] 114/73 Blood Pressure Mean 82 Blood Pressure Mean [Left Arm] 86 Blood Pressure Position Blood Pressure Position [Left Arm] Semi-fowlers Pulse Oximetry 95 100 Oxygen Delivery Method Room Air Sepsis Recent Fever Within 48 Hours Sepsis New/Unexplained Change in Mental Status Sepsis Action Taken by Nursing Physical Exam HENT: Exam performed. - Head: Normocephalic and atraumatic. - Right Ear: External ear normal. No mastoid erythema - Left Ear: External ear normal. No mastoid erythema - Mouth/Throat: The oropharynx is clear and moist. No trismus in the jaw. No dental abscesses or uvula swelling. No oropharyngeal exudate or tonsillar abscesses. EYES: Conjunctivae and EOM are normal. Pupils are equal, round, and reactive to light. Right eye exhibits no discharge. Left eye exhibits no discharge. No scleral icterus. NECK: Normal range of motion. Neck supple. No JVD present. No rigidity. No tracheal deviation and normal range of motion present. No Brudzinski's sign and no Kernig's sign noted. CV: Normal rate, regular rhythm, normal heart sounds and intact distal pulses. There is no peripheral edema. Palpable radial pulses bue. PULM/CHEST: Effort normal and breath sounds normal. No respiratory distress. No stridor. He has no wheezes. He has no rales. - Chest Wall: He exhibits no tenderness. ABD: The abdomen is soft. There is no tenderness. There is no rebound, no guarding. MUSC/SKEL: Normal range of motion. There is no peripheral edema, tenderness or deformity. LYMPH: No cervical adenopathy. NEURO: He is alert. Patient is not oriented to person, place, or time. He has normal strength. No cranial nerve deficit or sensory deficit. SKIN: Skin is warm and dry. He is not diaphoretic. PSYCH: He has a normal mood and affect. Behavior is normal. Judgment and thought content normal. Procedures Lumbar Puncture Time Out Performed: Yes Patient Position: other (Patient was started in an upright position and the patient kept moving close unable to obtain CSF in the upright position. Patient was lied down in the left lateral decubitus position and then CSF was able to be obtained when nurse was holding the patient's legs to prevent him from moving.) Skin Prep: Povidone-Iodine 1% Local Anesthetic: lidocaine 1% Amount of anesthesia used (mL): 5 Spinal Needle Gauge: 20G Interspace Used: L3-L4 Fluid Initially Obtained: clear Additional Comments: Patient was started in an upright position and the patient kept moving close unable to obtain CSF in the upright position. Patient was lied down in the left lateral decubitus position and then CSF was able to be obtained when nurse was holding the patient's legs to prevent him from moving. Course Course 1115: The patient was evaluated in room C4. A complete history and physical exam was performed Cardiac monitoring: An order was placed for continuous cardiac monitoring. The monitor shows a rate of 80 with sinus rhythm interpreted by nh 1410: Vital signs stable.Labs showed normal white blood cell count. Coagulation studies within normal limits. VBG within limits. Sodium 128. Bio[employer] urinalysis negative. CT head CT angio head and neck negative. Patient still very disoriented and confused. Given his negative workup to this point and no source of fever, decision was made to proceed with lumbar puncture. signed consent. 1447: Lumbar puncture performed. See procedure note. Patient treated empirically with Rocephin 2 g, vancomycin, ampicillin, and acyclovir all through the IV. Discussed the case with Dr. Darin Chou hospitalist will evaluate the patient for admission. 1510: Patient resting comfortably. Neurovascular intact. Capillary refill of the toes less than 2 seconds. Motor and sensation toes intact bilaterally. CSF glucose within normal limits. High-protein. Hospitalist aware. Administered Medications Sodium Chloride (Nss) 1,000 mls @ 125 mls/hr IV .Q8H BITA Stop: 09/20/24 12:29 Last Admin: 09/19/24 12:53 Dose: 125 mls/hr Documented By: MMF Discontinued Medications Acetaminophen (Ofirmev) 1,000 mg in 100 mls @ 400 mls/hr IV NOW STA Stop: 09/19/24 11:50 Last Infusion: 09/19/24 12:48 Dose: Infused Documented By: Admin: 09/19/24 11:51 Dose: 400 mls/hr Documented By: OSCAR Ceftriaxone Sodium (Rocephin) 2,000 mg in 50 mls @ 100 mls/hr IV NOW STA Stop: 09/19/24 13:31 Last Infusion: 09/19/24 14:00 Dose: Infused Documented By: Admin: 09/19/24 13:21 Dose: 100 mls/hr Documented By: MELISSA Acyclovir Sodium 780 mg/ (Dextrose) 265.6 mls @ 250 mls/hr IV NOW ONE; Protocol Stop: 09/19/24 15:09 Last Admin: 09/19/24 14:50 Dose: 250 mls/hr Documented By: OSCAR Ampicillin Sodium 2,000 mg/ (Sodium Chloride) 100 mls @ 200 mls/hr IV NOW STA Stop: 09/19/24 14:58 Last Admin: 09/19/24 14:50 Dose: 200 mls/hr Documented By: OSCAR Ioversol (Optiray 320 125ml) 112 ml IV ONCE ONE Stop: 09/19/24 11:23 Last Admin: 09/19/24 11:23 Dose: 112 ml Documented By: KENDALL Lorazepam (Lorazepam 2 Mg/1 Ml Vial) 1 mg IV NOW STA Stop: 09/19/24 13:04 Last Admin: 09/19/24 13:27 Dose: 0.5 mg Documented By: MELISSA Morphine Sulfate (Morphine Sulfate 4 Mg/Ml 1 Ml Carp\Vial) 4 mg IV NOW STA Stop: 09/19/24 13:04 Last Admin: 09/19/24 13:28 Dose: 2 mg Documented By: MELISSA Ondansetron HCl (Ondansetron Inj 2 Mg/Ml 2 Ml Vial) Confirm Administered Dose 4 mg .ROUTE .STK-MED ONE Stop: 09/19/24 13:25 Last Admin: 09/19/24 13:26 Dose: 4 mg Documented By: MELISSA Ondansetron HCl (Ondansetron Inj 2 Mg/Ml 2 Ml Vial) Confirm Administered Dose 4 mg .ROUTE .STK-MED ONE Stop: 09/19/24 13:33 Last Admin: 09/19/24 14:03 Dose: Not Given Documented By: MELISSA Medical Decision Making Laboratory Data Attestation: I reviewed the patient's lab results. 09/19/24 11:23 09/19/24 11:23 Lab Results 09/19/24 09/19/24 09/19/24 Range/Units 11:15 11:19 11:23 WBC 10.38 (4.8-10.8) K/ul RBC 4.53 L (4.70-6.10) M/uL Hgb 13.5 L (14.0-18.0) g/dl Hct 38.0 L (42.0-52.0) % MCV 83.9 (80.0-100.0) fL MCH 29.8 (25.0-34.0) pg MCHC 35.5 (32.0-36.0) g/dL RDW Std Deviation 37.1 (36.4-46.3) fL RDW Coeff of Rachel 12.2 (11.5-14.5) % Plt Count 246 (130-400) K/uL MPV 9.1 L (9.4-12.4) fL Immature Gran % (Auto) 0.4 % Neut % (Auto) 66.1 % Lymph % (Auto) 20.2 % [place] % (Auto) 12.3 % Eos % (Auto) 0.5 % Baso % (Auto) 0.5 % Neut # (Auto) 6.86 H (1.40-6.50) K/uL Lymph # (Auto) 2.10 (1.20-3.40) K/uL [place] # (Auto) 1.28 H (0.11-0.59) K/uL Eos # (Auto) 0.05 (0.00-0.50) K/uL Baso # (Auto) 0.05 (0.00-0.20) K/uL Immature Gran # (Auto) 0.04 (0.01-0.20) K/uL PT 12.9 H (9.0-12.0) Seconds INR 1.2 H (0.9-1.1) APTT 29 (21-31) Seconds PTT Ratio 1.1 VBG pH 7.41 (7.36-7.41) VBG pCO2 38 (38-50) mmHg VBG pO2 38 mmHg VBG HCO3 24 mmol/L VBG O2 Saturation 71.1 % VBG Base Excess -0.3 mEq/L Sodium 128 L (136-145) mmol/L Potassium 4.2 (3.5-5.1) mmol/L Chloride 95 L (98-107) mmol/L Carbon Dioxide 24 (21-32) mmol/L Anion Gap 9 (3-11) BUN 12 (6-23) mg/dl Creatinine 1.04 (0.6-1.4) mg/dl Est Cr Clr Drug Dosing 67.0 ml/min eGFR 77.73 BUN/Creatinine Ratio 11.5 (10-20) Glucose 103 H (70-99(Fasting)) mg/dl POC Glucose 108 H (70-99) mg/dl Lactate 1.7 (0.4-2.0) mmol/L Calcium 9.5 (8.6-10.3) mg/dl Magnesium 1.8 (1.7-2.4) mg/dl Total Bilirubin 2.4 H (0.2-1.0) mg/dl Direct Bilirubin 0.3 H (0-0.2) mg/dl AST 25 (13-39) U/L ALT 17 (7-52) U/L Alkaline Phosphatase 53 (34-104) U/L Ammonia 20.0 (18-72) umol/L Troponin I High Sens 12.4 (0-20) pg/ml Total Protein 8.0 (6.0-8.3) gm/dl Albumin 4.6 (3.4-5.0) gm/dl Procalcitonin Cancelled Urine Color Urine Appearance (Clear) Urine pH (4.5-7.5) Ur Specific [place] (1.000-1.030) Urine Protein (Negative) Urine Glucose (UA) (Negative) Urine Ketones (Negative) Urine Blood (Negative) Urine Nitrite (Negative) Urine Bilirubin (Negative) Urine Urobilinogen (Negative) Ur Leukocyte Esterase (Negative) Urine WBC (Auto) (0-5) /hpf Urine RBC (Auto) (0-2) /hpf U Hyaline Cast (Auto) (0-2) /lpf U Epithel Cells (Auto) (0-2) /hpf Urine Bacteria (Auto) (None Seen) Fld Lyme DNA (PCR) Fluid Comment CSF Chemistry Tube # CSF Glucose (40-70) mg/dl CSF Total Protein (15-45) mg/dl CSF VDRL Salicylates < 3.0 L (3.0-30) mg/dl Acetaminophen 7 L (10-30) ug/ml Adenovirus (PCR) Not Detected (NotDetected) Anaplasma Smear See Comment Babesia Smear See Comment B. pertussis DNA (PCR) Not Detected (NotDetected) B.parapertussis DNA PCR Not Detected (NotDetected) Lyme Specimen Source Lyme Disease Screen Cancelled Lyme DNA Comment C. pneumoniae DNA (PCR) Not Detected (NotDetected) Coronavirus OC43 (PCR) Not Detected (NotDetected) Coronavirus HKU1 (PCR) Not Detected (NotDetected) Coronavirus 229E (PCR) Not Detected (NotDetected) SARS-CoV-2 (PCR) Not Detected (NotDetected) Coronavirus NL63 (PCR) Not Detected (NotDetected) Human Metapneumovir PCR Not Detected (NotDetected) Influenza Type A (PCR) Not Detected (NotDetected) Influenza Type B (PCR) Not Detected (NotDetected) M. pneumoniae (PCR) Not Detected (NotDetected) Parainfluenza 1 (PCR) Not Detected (NotDetected) Parainfluenza 2 (PCR) Not Detected (NotDetected) Parainfluenza 3 (PCR) Not Detected (NotDetected) Parainfluenza 4 (PCR) Not Detected (NotDetected) RSV (PCR) Not Detected (NotDetected) Entero/Rhino (PCR) Not Detected (NotDetected) 09/19/24 09/19/24 09/19/24 Range/Units 11:46 12:31 13:56 WBC (4.8-10.8) K/ul RBC (4.70-6.10) M/uL Hgb (14.0-18.0) g/dl Hct (42.0-52.0) % MCV (80.0-100.0) fL MCH (25.0-34.0) pg MCHC (32.0-36.0) g/dL RDW Std Deviation (36.4-46.3) fL RDW Coeff of Rachel (11.5-14.5) % Plt Count (130-400) K/uL MPV (9.4-12.4) fL Immature Gran % (Auto) % Neut % (Auto) % Lymph % (Auto) % [place] % (Auto) % Eos % (Auto) % Baso % (Auto) % Neut # (Auto) (1.40-6.50) K/uL Lymph # (Auto) (1.20-3.40) K/uL [place] # (Auto) (0.11-0.59) K/uL Eos # (Auto) (0.00-0.50) K/uL Baso # (Auto) (0.00-0.20) K/uL Immature Gran # (Auto) (0.01-0.20) K/uL PT (9.0-12.0) Seconds INR (0.9-1.1) APTT (21-31) Seconds PTT Ratio VBG pH (7.36-7.41) VBG pCO2 (38-50) mmHg VBG pO2 mmHg VBG HCO3 mmol/L VBG O2 Saturation % VBG Base Excess mEq/L Sodium (136-145) mmol/L Potassium (3.5-5.1) mmol/L Chloride (98-107) mmol/L Carbon Dioxide (21-32) mmol/L Anion Gap (3-11) BUN (6-23) mg/dl Creatinine (0.6-1.4) mg/dl Est Cr Clr Drug Dosing ml/min eGFR BUN/Creatinine Ratio (10-20) Glucose (70-99(Fasting)) mg/dl POC Glucose (70-99) mg/dl Lactate (0.4-2.0) mmol/L Calcium (8.6-10.3) mg/dl Magnesium (1.7-2.4) mg/dl Total Bilirubin (0.2-1.0) mg/dl Direct Bilirubin (0-0.2) mg/dl AST (13-39) U/L ALT (7-52) U/L Alkaline Phosphatase (34-104) U/L Ammonia (18-72) umol/L Troponin I High Sens (0-20) pg/ml Total Protein (6.0-8.3) gm/dl Albumin (3.4-5.0) gm/dl Procalcitonin 0.05 Urine Color Yellow Urine Appearance Clear (Clear) Urine pH 8.5 H (4.5-7.5) Ur Specific [place] 1.033 H (1.000-1.030) Urine Protein 3+ H (Negative) Urine Glucose (UA) Negative (Negative) Urine Ketones Negative (Negative) Urine Blood 3+ H (Negative) Urine Nitrite Negative (Negative) Urine Bilirubin Negative (Negative) Urine Urobilinogen Negative (Negative) Ur Leukocyte Esterase Negative (Negative) Urine WBC (Auto) 0-5 (0-5) /hpf Urine RBC (Auto) >20 H (0-2) /hpf U Hyaline Cast (Auto) 0-2 (0-2) /lpf U Epithel Cells (Auto) 0-2 (0-2) /hpf Urine Bacteria (Auto) None Seen (None Seen) Fld Lyme DNA (PCR) Cancelled Fluid Comment CSF Chemistry Tube # 1 CSF Glucose 45 (40-70) mg/dl CSF Total Protein 84.3 H (15-45) mg/dl CSF VDRL Cancelled Salicylates (3.0-30) mg/dl Acetaminophen (10-30) ug/ml Adenovirus (PCR) (NotDetected) Anaplasma Smear Babesia Smear B. pertussis DNA (PCR) (NotDetected) B.parapertussis DNA PCR (NotDetected) Lyme Specimen Source Cancelled Lyme Disease Screen Lyme DNA Comment Cancelled C. pneumoniae DNA (PCR) (NotDetected) Coronavirus OC43 (PCR) (NotDetected) Coronavirus HKU1 (PCR) (NotDetected) Coronavirus 229E (PCR) (NotDetected) SARS-CoV-2 (PCR) (NotDetected) Coronavirus NL63 (PCR) (NotDetected) Human Metapneumovir PCR (NotDetected) Influenza Type A (PCR) (NotDetected) Influenza Type B (PCR) (NotDetected) M. pneumoniae (PCR) (NotDetected) Parainfluenza 1 (PCR) (NotDetected) Parainfluenza 2 (PCR) (NotDetected) Parainfluenza 3 (PCR) (NotDetected) Parainfluenza 4 (PCR) (NotDetected) RSV (PCR) (NotDetected) Entero/Rhino (PCR) (NotDetected) Imaging Data Attestation: I personally reviewed and interpreted this imaging study as follows: My Impression: Chest x-ray: Chest x-ray negative. Airway clear. No pneumothorax. No consolidation. No cardiomegaly or cephalization.. No free air under the diaphragm. No fractures of the skeletal structures. Radiologist's Impression: Chest X-Ray 09/19/24 11:13 SINGLE VIEW CHEST CLINICAL HISTORY: Sepsis.. FINDINGS: An AP, portable, upright chest radiograph is compared to study dated 12/05/2022 and correlated with chest CT dated 02/07/2018. The cardiomediastinal silhouette is unremarkable noting atherosclerotic calcification of the thoracic aorta. Chronic interstitial thickening is similar to previous. There is bibasilar scarring/atelectasis. No airspace consolidation or large pleural effusion is identified. There is no pneumothorax. The skeletal structures appear osteopenic. The bony thorax is grossly intact. Arthritic change is seen in the shoulders. IMPRESSION: No active disease in the chest. ACT 112: Negative or not required by law. Electronically signed by: Donald Lewis M.D. 09/19/2024 1:[address] 09/19/24 11:[address] OF THE BRAIN; CT ANGIOGRAM OF THE BRAIN; CT ANGIOGRAM OF THE NECK CLINICAL HISTORY: Change in mental status. COMPARISON STUDY: CT of the brain dated 01/08/2019 TECHNIQUE: Unenhanced axial CT scan of the brain is performed. Subsequently, following the IV administration of 112 of Optiray 320, CT angiogram of the head and neck was performed from the aortic arch to the vertex. Images are reviewed in the axial, sagittal, and coronal planes. 3-D MIPS images are created and assessed. IV contrast was administered without complication. All measurements were calculated based on NASCET criteria. A dose lowering technique was utilized adhering to the principles of ALARA. CT DOSE: 1349.92 mGy.cm FINDINGS: Brain parenchyma: There is age-related involutional change noted minimal microangiopathic disease. There is no hemorrhage, mass effect, or evidence of acute territorial ischemia by CT criteria. There is no evidence of enhancing mass lesion on the angiogram phase images. The ventricles, sulci, and cisterns are prominent secondary to involutional change. Ramirez-white matter differentiation is preserved. No extra-axial fluid collection is seen. Thoracic aorta: Visualized portions of the thoracic aorta are normal in caliber. The aortic arch demonstrates standard 3-vessel anatomy. Right carotid arterial system: The right common carotid artery is widely patent. There is atherosclerotic plaque in the carotid bulb which causes approximately 50% focal stenosis of the origin of the right internal carotid artery as seen on image #230. The remainder of the internal and external carotid arteries are patent. Left carotid arterial system: The left common carotid artery is widely patent, as are the left internal and external carotid arteries. Calcified plaque is seen in the carotid bulb. Vertebral arteries: The vertebral arteries are patent bilaterally noted left- sided dominance. Subclavian arteries: Widely patent bilaterally. Intracranial vasculature: There is atherosclerotic calcification of the cavernous carotid arteries. The internal carotid arteries are patent at the skull base, as are the anterior and middle cerebral arteries bilaterally. The vertebrobasilar system and posterior cerebral arteries are widely patent. The left vertebral artery is dominant. The right vertebral artery is diminutive and largely terminates as the PICA. There is no aneurysm, high-grade stenosis, or focal vessel cut off seen throughout the intracranial circulation. Jugular veins: Patent bilaterally. Dural sinuses: Patent. Lung apices: Partially visualized upper lobe lung parenchyma appears clear. Soft tissues: The visualized pharyngeal soft tissues are normal in appearance noting angiographic phase technique. The oropharyngeal airway appears widely patent. The thyroid gland is atrophic. The salivary glands are normal in appearance. No cervical lymphadenopathy is seen. Skeletal structures: The skeletal structures are osteopenic. The calvarium appears intact. The cervical spine is maintained noting mild multilevel spondylosis. Orbits: The bony orbits are intact. Orbital contents are normal as visualized noting bilateral ocular lens implants. Sinuses and mastoids: The paranasal sinuses are clear. The mastoid air cells are well pneumatized. IMPRESSION: 1. There is no hemorrhage, mass effect, or evidence of acute territorial ischemia by CT criteria. 2. Unremarkable CT angiogram of the brain. 3. There is approximately 50% focal stenosis at the origin of the right internal carotid artery. 4. Otherwise unremarkable CT angiogram of the neck. ACT 112: Negative or not required by law. Electronically signed by: Donald Lewis M.D. 09/19/2024 11:40 AM Head CTA 09/19/24 11:[address] OF THE BRAIN; CT ANGIOGRAM OF THE BRAIN; CT ANGIOGRAM OF THE NECK CLINICAL HISTORY: Change in mental status. COMPARISON STUDY: CT of the brain dated 01/08/2019 TECHNIQUE: Unenhanced axial CT scan of the brain is performed. Subsequently, following the IV administration of 112 of Optiray 320, CT angiogram of the head and neck was performed from the aortic arch to the vertex. Images are reviewed in the axial, sagittal, and coronal planes. 3-D MIPS images are created and assessed. IV contrast was administered without complication. All measurements were calculated based on NASCET criteria. A dose lowering technique was utilized adhering to the principles of ALARA. CT DOSE: 1349.92 mGy.cm FINDINGS: Brain parenchyma: There is age-related involutional change noted minimal microangiopathic disease. There is no hemorrhage, mass effect, or evidence of acute territorial ischemia by CT criteria. There is no evidence of enhancing mass lesion on the angiogram phase images. The ventricles, sulci, and cisterns are prominent secondary to involutional change. Ramirez-white matter differentiation is preserved. No extra-axial fluid collection is seen. Thoracic aorta: Visualized portions of the thoracic aorta are normal in caliber. The aortic arch demonstrates standard 3-vessel anatomy. Right carotid arterial system: The right common carotid artery is widely patent. There is atherosclerotic plaque in the carotid bulb which causes approximately 50% focal stenosis of the origin of the right internal carotid artery as seen on image #230. The remainder of the internal and external carotid arteries are patent. Left carotid arterial system: The left common carotid artery is widely patent, as are the left internal and external carotid arteries. Calcified plaque is seen in the carotid bulb. Vertebral arteries: The vertebral arteries are patent bilaterally noted left- sided dominance. Subclavian arteries: Widely patent bilaterally. Intracranial vasculature: There is atherosclerotic calcification of the cavernous carotid arteries. The internal carotid arteries are patent at the skull base, as are the anterior and middle cerebral arteries bilaterally. The vertebrobasilar system and posterior cerebral arteries are widely patent. The left vertebral artery is dominant. The right vertebral artery is diminutive and largely terminates as the PICA. There is no aneurysm, high-grade stenosis, or focal vessel cut off seen throughout the intracranial circulation. Jugular veins: Patent bilaterally. Dural sinuses: Patent. Lung apices: Partially visualized upper lobe lung parenchyma appears clear. Soft tissues: The visualized pharyngeal soft tissues are normal in appearance noting angiographic phase technique. The oropharyngeal airway appears widely patent. The thyroid gland is atrophic. The salivary glands are normal in appearance. No cervical lymphadenopathy is seen. Skeletal structures: The skeletal structures are osteopenic. The calvarium appears intact. The cervical spine is maintained noting mild multilevel spondylosis. Orbits: The bony orbits are intact. Orbital contents are normal as visualized noting bilateral ocular lens implants. Sinuses and mastoids: The paranasal sinuses are clear. The mastoid air cells are well pneumatized. IMPRESSION: 1. There is no hemorrhage, mass effect, or evidence of acute territorial ischemia by CT criteria. 2. Unremarkable CT angiogram of the brain. 3. There is approximately 50% focal stenosis at the origin of the right internal carotid artery. 4. Otherwise unremarkable CT angiogram of the neck. ACT 112: Negative or not required by law. Electronically signed by: Donald Lewis M.D. 09/19/2024 11:40 AM Neck CTA 09/19/24 11:[address] OF THE BRAIN; CT ANGIOGRAM OF THE BRAIN; CT ANGIOGRAM OF THE NECK CLINICAL HISTORY: Change in mental status. COMPARISON STUDY: CT of the brain dated 01/08/2019 TECHNIQUE: Unenhanced axial CT scan of the brain is performed. Subsequently, following the IV administration of 112 of Optiray 320, CT angiogram of the head and neck was performed from the aortic arch to the vertex. Images are reviewed in the axial, sagittal, and coronal planes. 3-D MIPS images are created and assessed. IV contrast was administered without complication. All measurements were calculated based on NASCET criteria. A dose lowering technique was utilized adhering to the principles of ALARA. CT DOSE: 1349.92 mGy.cm FINDINGS: Brain parenchyma: There is age-related involutional change noted minimal microangiopathic disease. There is no hemorrhage, mass effect, or evidence of acute territorial ischemia by CT criteria. There is no evidence of enhancing mass lesion on the angiogram phase images. The ventricles, sulci, and cisterns are prominent secondary to involutional change. Ramirez-white matter differentiation is preserved. No extra-axial fluid collection is seen. Thoracic aorta: Visualized portions of the thoracic aorta are normal in caliber. The aortic arch demonstrates standard 3-vessel anatomy. Right carotid arterial system: The right common carotid artery is widely patent. There is atherosclerotic plaque in the carotid bulb which causes approximately 50% focal stenosis of the origin of the right internal carotid artery as seen on image #230. The remainder of the internal and external carotid arteries are patent. Left carotid arterial system: The left common carotid artery is widely patent, as are the left internal and external carotid arteries. Calcified plaque is seen in the carotid bulb. Vertebral arteries: The vertebral arteries are patent bilaterally noted left- sided dominance. Subclavian arteries: Widely patent bilaterally. Intracranial vasculature: There is atherosclerotic calcification of the cavernous carotid arteries. The internal carotid arteries are patent at the skull base, as are the anterior and middle cerebral arteries bilaterally. The vertebrobasilar system and posterior cerebral arteries are widely patent. The left vertebral artery is dominant. The right vertebral artery is diminutive and largely terminates as the PICA. There is no aneurysm, high-grade stenosis, or focal vessel cut off seen throughout the intracranial circulation. Jugular veins: Patent bilaterally. Dural sinuses: Patent. Lung apices: Partially visualized upper lobe lung parenchyma appears clear. Soft tissues: The visualized pharyngeal soft tissues are normal in appearance noting angiographic phase technique. The oropharyngeal airway appears widely patent. The thyroid gland is atrophic. The salivary glands are normal in appearance. No cervical lymphadenopathy is seen. Skeletal structures: The skeletal structures are osteopenic. The calvarium appears intact. The cervical spine is maintained noting mild multilevel spondylosis. Orbits: The bony orbits are intact. Orbital contents are normal as visualized noting bilateral ocular lens implants. Sinuses and mastoids: The paranasal sinuses are clear. The mastoid air cells are well pneumatized. IMPRESSION: 1. There is no hemorrhage, mass effect, or evidence of acute territorial ischemia by CT criteria. 2. Unremarkable CT angiogram of the brain. 3. There is approximately 50% focal stenosis at the origin of the right internal carotid artery. 4. Otherwise unremarkable CT angiogram of the neck. ACT 112: Negative or not required by law. Electronically signed by: Donald Lewis M.D. 09/19/2024 11:40 AM ECG Data Attestation: I personally reviewed and interpreted this ECG as follows: Rate (beats per minute): 80 Rhythm: + normal sinus ECG Intervals/blocks: + Normal QRS, + Normal IA and + Normal QT-c ECG ST segments: + Normal ST segments MDM Narrative 1115: The patient was evaluated in room C4. A complete history and physical exam was performed Cardiac monitoring: An order was placed for continuous cardiac monitoring. The monitor shows a rate of 80 with sinus rhythm interpreted by nh 1410: Vital signs stable.Labs showed normal white blood cell count. Coagulation studies within normal limits. VBG within limits. Sodium 128. Bio[employer] urinalysis negative. CT head CT angio head and neck negative. Patient still very disoriented and confused. Given his negative workup to this point and no source of fever, decision was made to proceed with lumbar puncture. signed consent. 1447: Lumbar puncture performed. See procedure note. Patient treated empirically with Rocephin 2 g, vancomycin, ampicillin, and acyclovir all through the IV. Discussed the case with Dr. Darin Chou hospitalist will evaluate the patient for admission. 1510: Patient resting comfortably. Neurovascular intact. Capillary refill of the toes less than 2 seconds. Motor and sensation toes intact bilaterally. CSF glucose within normal limits. High-protein. Hospitalist aware. Impression & Plan Encephalitis, Altered mental status, Fever, Headache Discharge Plan Visit Data Chief Complaint: Flu Like Symptoms Stated Complaint: MIGRAINE/HEAD PAIN, VOMITING, FEVER 105, CONFUSION ED Provider: Iam Engel Discharge Problem: Encephalitis, Altered mental status, Fever, Headache Patient Disposition: Admitted As Inpatient Forms Stand Alone Forms: My [facility] [employer] Prescriptions Prescriptions: No Action levothyroxine 75 mcg tablet 75 mcg PO QAM Qty: 90 3RF Suflave 178.7-7.3-0.5 gram recon soln See Rx Instructions PO .COMPLEX Qty: 2 0RF Rx Instructions: Take as directed as per split dose instructions. Use coupon code: BIN: [id number] PCN: [id number] GROUP: [id number] Centrum Silver Ultra Men's 300-600-300 mcg tablet 1 tab PO DAILY Patient Comments: QAM calcium carbonate-vitamin D3 500 mg(1,250mg) -200 unit tablet 1 tab PO DAILY Patient Comments: TAKES AT NOON ascorbic acid (vitamin C) 500 mg tablet 500 mg PO DAILY Patient Comments: Takes at Noon Slow Fe 142 mg (45 mg iron) tablet extended release 142 mg PO .every other day sodium chloride 1,000 mg tablet,soluble 1,000 mg PO TID Qty: 270 4RF pantoprazole 40 mg tablet,delayed release (DR/EC) 40 mg PO QAM Rx Instructions: TAKE 1 TABLET DAILY mupirocin 2 % ointment 1 applic topical TID PRN (Reason: Acne) furosemide 20 mg tablet 20 mg PO QPM prednisone 5 mg tablet 5 mg PO .Q OTHER DAY Rx Instructions: breaks in half for 2.5mg dose and does every other day. They wanted to lowest dose possible and still feel good. Referrals Referrals: Pro,Oren Wahl MD [Primary Care Provider] -
[2024-09-19 15:23] LABS: Appearance CSF Clear; CSF Count Tube # 3; CSF Xanthrochromic No xanthochromia; Color CSF Colorless; Red Blood Cell CSF Manual 0 (0-); White Blood Cell CSF Manual 339 (0-5)
[2024-09-19] MEDS: VANCOMYCIN HCL 1,500 MG in SODIUM CHLORIDE 0.9% 500 ML IV ONE (15:30)
[2024-09-19 15:35] LABS: Cryptococcus neoformans/ga PCR Not Detected (NotDetected); Cytomegalovirus PCR Not Detected (NotDetected); Enterovirus PCR Not Detected (NotDetected); Escherichia coli K1 PCR Not Detected (NotDetected); Haemophilius influenzae PCR Not Detected (NotDetected); Herpes Simplex Virus 1 PCR Not Detected (NotDetected); Herpes Simplex Virus 2 PCR Not Detected (NotDetected); Human Herpes Virus 6 PCR Not Detected (NotDetected); Human Parechovirus PCR Not Detected (NotDetected); Listeria monocytogenes PCR Not Detected (NotDetected); Neisseria meningitidis PCR Not Detected (NotDetected); Streptococcus agalactiae PCR Not Detected (NotDetected); Streptococcus pneumoniae PCR Not Detected (NotDetected); Varicella Zoster Virus PCR Not Detected (NotDetected)
[2024-09-19] MEDS ORDERED: MoRPHine SULFATE 2 MG/ML CARP IV PRN (16:19)
[2024-09-19] MEDS ORDERED: MoRPHine SULFATE 4 MG/ML 1 ML CARP\\VIAL IV PRN (16:19)
[2024-09-19] MEDS ORDERED: ONDANSETRON INJ 2 MG/ML 2 ML VIAL IV PRN (16:19)
[2024-09-19] MEDS ORDERED: dexAMETHasone**PF** 10 MG/ML VIAL IV ONE (16:43)
[2024-09-19] MEDS: AMPICILLIN 2,000 MG in SODIUM CHLOR 0.9% MINI-B 100 ML IV SCH (18:15)
[2024-09-19] MEDS: dexAMETHasone 10 MG in SYRINGE 0 ML IV ONE (18:16)
--- NOTE | 2024-09-19 18:26 | Pharmacy Report ---
Pharmacy PK ABX Note - Date of Service September 19, 2024 - Assessment and Plan Assessment 69 year old M who presented with fever, confusion, vomiting and altered mental status. Empiric antibiotics, vanco + ceftriaxone + ampicillin + acyclovir, started for coverage of possible meningitis and tick borne illness. LP performed. Cultures pending. ID consulted. Pertinent microbiologic data includes: 09/19: BC pending 09/19: CSF pending CSF meningitis PCR panel - all organisms not detected Tick borne panel pending Plan Vancomycin * Loading dose: 1500 mg IV x 1 * Maintenance dose: 1250 mg IV every 18 hours * Regimen is predicted to achieve target AUC/KEVIN of 400-600 mg/L.hr * Random level ordered for: 09/21 @ 0800 Pharmacy will continue to follow and will adjust dose/frequency as necessary. Thank you.
[2024-09-19 20:20] LABS: BUN Creatinine Ratio 13.4 (10-20); Calcium 8.2 mg/dl (8.6-10.3)
[2024-09-19] MEDS: FUROSEMIDE 20 MG TAB PO SCH (20:32)
[2024-09-19] MEDS: SODIUM CHLORIDE 1 GM TABLET PO SCH (20:32)
[2024-09-19] MEDS ORDERED: AMPICILLIN/SULBACTAM SOD 3,000 MG/100 ML BAG IV SCH (21:00)
[2024-09-19] MEDS: FUROSEMIDE INJ 20 MG/2 ML VIAL IV ONE (21:05)
[2024-09-19] MEDS: ENOXAPARIN INJ 40 MG/0.4 ML SYR SQ SCH (21:05)
[2024-09-19] MEDS: ACYCLOVIR SOD 780 MG in DEXTROSE 5% 250 ML IV SCH (22:00)
[2024-09-19] MEDS: cefTRIAXone SODIUM 2,000 MG/50 ML BAG IV SCH (23:08)
[2024-09-19] MEDS: dexAMETHasone 10 MG in SYRINGE 0 ML IV SCH (23:44)
[2024-09-19 23:51] LABS: Calcium 8.5 mg/dl (8.6-10.3); Creatinine Clr Calc Pharmacy 69.7 ml/min
[2024-09-20] MEDS ORDERED: DEXAMETHASONE SOD INJ 4 MG/ML VIAL IV SCH (02:00)
[2024-09-20] MEDS: VANCOMYCIN HCL 1,250 MG in DEXTROSE 5% 250 ML IV SCH (05:21)
[2024-09-20] MEDS: LEVOTHYROXINE SODIUM 75 MCG TABLET PO SCH (06:03)
[2024-09-20 06:10] LABS: Hematocrit (blood only) 35.5 % (42.0-52.0); Hemoglobin 13.1 g/dl (14.0-18.0); Mean Corpuscular Hemoglobin 29.7 pg (25.0-34.0); Mean Corpuscular Hgb Conc 36.9 g/dL (32.0-36.0); Mean Corpuscular Volume 80.5 fL (80.0-100.0); Mean Platelet Volume 9.4 fL (9.4-12.4); Platelet Count 211 K/uL (130-400); RDW Coefficient of Variation 11.8 % (11.5-14.5); RDW Standard Deviation 34.7 fL (36.4-46.3); Red Blood Count 4.41 M/uL (4.70-6.10)
[2024-09-20] MEDS ORDERED: STAT IV/IM STA ×2 (06:12→13:41)
[2024-09-20 07:02] LABS: Immature Granulocytes # (auto) 0.02 K/uL (0.01-0.20); Immature Granulocytes % (auto) 0.3 %; Lymphocytes # (auto) 0.51 K/uL (1.20-3.40); Lymphocytes % (auto) 6.6 %; Monocytes # (auto) 0.14 K/uL (0.11-0.59); Monocytes % (auto) 1.8 %; Neutrophils # (auto) 7.03 K/uL (1.40-6.50); Neutrophils % (auto) 91.3 %; RBC Morphology Unremarkable
[2024-09-20 07:30] LABS: Alanine Aminotransferase 15 U/L (7-52); Albumin Globulin Ratio 1.2 (0.9-2); Alkaline Phosphatase 48 U/L (34-104); Anion Gap 7 (3-11); Bilirubin,Total 1.5 mg/dl (0.2-1.0); Blood Urea Nitrogen 12 mg/dl (6-23); Calcium 8.8 mg/dl (8.6-10.3); Carbon Dioxide 24 mmol/L (21-32); Chloride 93 mmol/L (98-107); Creatinine Clr Calc Pharmacy 75.8 ml/min; Globulin 3.4 gm/dl (2.5-4.0); Glucose 150 mg/dl (70-99(Fasting)); Sodium 124 mmol/L (136-145); Total Protein 7.4 gm/dl (6.0-8.3)
[2024-09-20] MEDS: SODIUM CHLORIDE 3 % 100 ML IV ONE ×2 (07:34→13:54)
--- NOTE | 2024-09-20 07:37 | Electrocardiogram Report ---
Test Reason : Blood Pressure : */* mmHG Vent. Rate : 80 BPM Atrial Rate : 80 BPM P-R Int : 140 ms QRS Dur : 90 ms QT Int : 388 ms P-R-T Axes : 43 70 62 degrees QTcB Int : 447 ms Normal sinus rhythm Normal ECG When compared with ECG of 05-Dec-2022 14:37, No significant change was found Confirmed by Colt Juárez ([id number]) on 09/20/2024 7:36:41 AM Referred By: REFERRED SELF Confirmed By: Colt Juárez
[2024-09-20] MEDS: PANTOprazole 40 MG TAB PO SCH (07:42)
--- NOTE | 2024-09-20 09:35 | Nephrology Consultation ---
Date of Consultation September 20, 2024 Assessment & Plan (1) Hyponatremia: * Patient has a longstanding history of SIADH managed with free water restriction, NaCl tablets and loop diuretic * Acute exacerbation of hyponatremia likely related to meningitis * Agree with 100 cc 3% NaCl given this morning. Rate of sodium correction appears appropriate * staff respiratory therapist reports that the patient has been taking oral medications. Continue NaCl 1 g TID, furosemide 20 mg qAM and 1500 cc/day free water fluid restriction * Primary service has ordered BMP every 3 hours x 4. Await results of laboratory studies to be drawn at 12 noon today (2) Altered mental status: * Likely related to meningitis. CSF leukocytosis noted * Awaiting results of CSF and blood cultures * Patient is on therapy with ceftriaxone, ampicillin, acyclovir, dexamethasone as per primary service (3) Meningitis: History of Present Illness Reason for Consultation: Hyponatremia Attending Physician: Anne Carroll MD History of Present Illness Mr. Huitron is a 69-year-old white male who is seen at the request of the [facility] hospitalist service for evaluation of hyponatremia. Patient was somnolent at the time of my evaluation. He could not provide any history. Information for the HPI is obtained from review of the EMR. HPI is summarized as follows: Mr. Huitron has a longstanding history of chronic hyponatremia. Prior evaluation was negative for tobacco use or malignancy. Thyroid function studies and renal studies were within normal limits. SSRI was discontinued. Patient was placed on 1.5 L free water fluid restriction/day. NaCl 1 g po TID and furosemide 20 mg every morning was started. Serum sodium razo d improved to 137 mmol/L earlier this month. Mr. 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 Mr. Huitron presented to [facility] EMD 09/19/2024 with weakness and confusion. He complained of a severe migraine headache. Head CT with contrast was negative for acute stroke. LP revealed leukocytosis suggestive of viral meningitis. Blood and CSF cultures are pending. . Patient is currently receiving ceftriaxone, ampicillin, acyclovir, dexamethasone IV. Serum sodium this morning was 124 mmol/liter. Patient received 100 cc 3% NaCl. Repeat sodium had improved to 127 mmol/L. staff respiratory therapist informs me that the patient was awake earlier this morning and able to take his oral sodium chloride tablets. He is scheduled for follow-up BMP at 12 noon today. Allergies Allergy/AdvReac Type Severity Reaction Status Date / Time metronidazole Allergy Intermediate NUMBNESS - Verified 09/17/24 15:15 IV FORMULATION zolpidem Allergy Intermediate HALLUCINATI Verified 09/17/24 15:15 ONS prednisone AdvReac Severe high blood Verified 09/17/24 15:15 sugar with high doses aspirin AdvReac Mild Stomach Verified 09/17/24 15:15 pain ibuprofen AdvReac Mild GI UPSET Verified 09/17/24 15:15 pork derived (porcine) AdvReac Mild GI SYMPTOMS Verified 09/17/24 15:15 Pork AdvReac Intermediate GI SYMPTOMS Uncoded 09/17/24 15:15 Home Medications Medication Instructions Recorded Confirmed Type ascorbic acid (vitamin C) 500 mg 500 mg PO DAILY 06/30/19 09/19/24 History tablet calcium 500 mg (as 1 tab PO DAILY 06/30/19 09/19/24 History carbonate)-vitamin D3 5 mcg (200 unit) tablet [id number] 300 mcg-K 60 1 tab PO DAILY 06/30/19 09/19/24 History mcg-lycop 600 mcg-lutein 300 mcg tablet (Centrum Silver Ultra Men's) ferrous sulfate 142 mg (45 mg 142 mg PO .every other day 08/04/20 09/19/24 History iron) tablet,extended release (Slow Fe) levothyroxine 75 mcg tablet 75 mcg PO QAM #90 tabs 04/13/24 09/19/24 Rx peg 3350-sod sulf,[id number] See Rx Instructions PO .COMPLEX #2 09/09/24 09/19/24 Rx 178.7-7.3-0.5-1.12-0.9 gram oral mL soln (Suflave) sodium chloride 1,000 mg soluble 1,000 mg PO TID #270 tabs 09/10/24 09/19/24 Rx tablet furosemide 20 mg tablet 20 mg PO QPM 09/17/24 09/19/24 History mupirocin 2 % topical ointment 1 applic topical TID PRN Acne 09/17/24 09/19/24 History pantoprazole 40 mg tablet,delayed 40 mg PO QAM 09/17/24 09/19/24 History release prednisone 5 mg tablet 5 mg PO .Q OTHER DAY 09/19/24 09/19/24 History Patient History Medical History Hx of migraines every few months Hx of Clostridium difficile infection (2018) treated Pulmonary nodule monitored Hx of Crohn's disease History of pneumonia (2019) GERD (gastroesophageal reflux disease) Hypothyroidism Arthritis prednisone Hearing loss Hyponatremia sodium chloride tid Anemia (~09/2013) Surgical History History of esophagogastroduodenoscopy (EGD) History of colonoscopy History of tooth extraction History of cataract surgery RT/LEFT History of tonsillectomy and adenoidectomy S/P partial colectomy (1998) due to crohn's History of reversal of ileostomy (1999) History of appendectomy Family History Mother Myocardial infarction Coronary heart disease Aunt Alzheimer disease Uncle Alzheimer disease Bladder cancer Diabetes Grandfather (Maternal) Coronary heart disease Father Dementia Denies family history of Colon cancer Ovarian cancer Prostate cancer Breast cancer Social History Smoking Status: Never smoker Second Hand Exposure: No; Do You Dip or Chew Tobacco: No; Hx Alcohol Use: Yes Alcohol type: beer and wine Hx Substance Use: No Preferred Language: Slovenian Communication Ability: Effective Visual Impairment: No Limitations Hearing Ability: Normal First Assistant Required: No Beliefs That Will Affect Care: Gnosticist Gnosticist Beliefs: christianity marital status: Current Living Situation: Spouse current occupational status: retired Other Information That Helps Us Care for You: No Feels Safe at Home: Yes Safety Concerns: Feels Safe At This Time Childhood Exposure to Second-Hand Smoke: Yes Dental Care, Regularly: Yes Physical Activity Frequency: 1-2 Times per Week Seatbelt Use: always Sunscreen Use: No Assistive Devices: Glasses and Other Review of Systems Review of Systems: Unobtainable due to cognitive status Physical Exam Constitutional: not in distress Eyes: PERRL, conjunctivae normal, anicteric sclerae ENMT: external ear and nose normal, oropharynx normal Neck: trachea midline, no thyromegaly Respiratory: normal respiratory effort, lungs clear to auscultation Cardiovascular: RRR, no murmur, no edema Gastrointestinal (Abdomen): normal bowel sounds, soft, nontender, no hepatosplenomegaly Skin: no rashes, warm and dry Neurologic: Somnolent. Awakens to voice. Will follow simple one-step commands. Results & Data Vital Signs (Past 12 Hours) Vital Signs Temp Pulse Pulse Resp BP Pulse Ox O2 Del Method 09/20/24 08:59 Room Air 09/20/24 07:59 37.0 C 99 H 18 115/72 97 Room Air 09/20/24 03:30 36.4 C L 85 16 118/73 90 Room Air 09/19/24 23:22 36.7 C 78 18 127/73 98 Room Air 09/19/24 23:01 67 Laboratory Results Laboratory Results WBC 7.70 K/ul (4.8-10.8) 09/20/24 05:09 RBC 4.41 M/uL (4.70-6.10) L 09/20/24 05:09 Hgb 13.1 g/dl (14.0-18.0) L 09/20/24 05:09 Hct 35.5 % (42.0-52.0) L 09/20/24 05:09 MCV 80.5 fL (80.0-100.0) 09/20/24 05:09 MCH 29.7 pg (25.0-34.0) 09/20/24 05:09 MCHC 36.9 g/dL (32.0-36.0) H 09/20/24 05:09 RDW Std Deviation 34.7 fL (36.4-46.3) L 09/20/24 05:09 RDW Coeff of Rachel 11.8 % (11.5-14.5) 09/20/24 05:09 Plt Count 211 K/uL (130-400) 09/20/24 05:09 MPV 9.4 fL (9.4-12.4) 09/20/24 05:09 Immature Gran % (Auto) 0.3 % 09/20/24 05:09 Neut % (Auto) 91.3 % 09/20/24 05:09 Lymph % (Auto) 6.6 % 09/20/24 05:09 Divide % (Auto) 1.8 % 09/20/24 05:09 Eos % (Auto) 0.0 % 09/20/24 05:09 Baso % (Auto) 0.0 % 09/20/24 05:09 Neut # (Auto) 7.03 K/uL (1.40-6.50) H 09/20/24 05:09 Lymph # (Auto) 0.51 K/uL (1.20-3.40) L 09/20/24 05:09 Divide # (Auto) 0.14 K/uL (0.11-0.59) 09/20/24 05:09 Eos # (Auto) 0.00 K/uL (0.00-0.50) 09/20/24 05:09 Baso # (Auto) 0.00 K/uL (0.00-0.20) 09/20/24 05:09 Immature Gran # (Auto) 0.02 K/uL (0.01-0.20) 09/20/24 05:09 RBC Morphology Unremarkable 09/20/24 05:09 PT 12.9 Seconds (9.0-12.0) H 09/19/24 11:23 INR 1.2 (0.9-1.1) H 09/19/24 11:23 APTT 29 Seconds (21-31) 09/19/24 11:23 PTT Ratio 1.1 09/19/24 11:23 VBG pH 7.41 (7.36-7.41) 09/19/24 11:23 VBG pCO2 38 mmHg (38-50) 09/19/24 11:23 VBG pO2 38 mmHg 09/19/24 11:23 VBG HCO3 24 mmol/L 09/19/24 11:23 VBG O2 Saturation 71.1 % 09/19/24 11:23 VBG Base Excess -0.3 mEq/L 09/19/24 11:23 Sodium 124 mmol/L (136-145) L 09/20/24 05:09 Potassium TNP 09/20/24 05:09 Chloride 93 mmol/L (98-107) L 09/20/24 05:09 Carbon Dioxide 24 mmol/L (21-32) 09/20/24 05:09 Anion Gap 7 (3-11) 09/20/24 05:09 BUN 12 mg/dl (6-23) 09/20/24 05:09 Creatinine 0.92 mg/dl (0.6-1.4) 09/20/24 05:09 Est Cr Clr Drug Dosing 75.8 ml/min 09/20/24 05:09 eGFR 90.05 09/20/24 05:09 BUN/Creatinine Ratio 13.0 (10-20) 09/20/24 05:09 Glucose 150 mg/dl (70-99(Fasting)) H 09/20/24 05:09 POC Glucose 209 mg/dl (70-99) H 09/19/24 23:07 Osmolality 266 mOsm/kg (280-300) L 09/19/24 12:29 Lactate 1.7 mmol/L (0.4-2.0) 09/19/24 11:23 Calcium 8.8 mg/dl (8.6-10.3) 09/20/24 05:09 Magnesium 1.8 mg/dl (1.7-2.4) 09/19/24 11:23 Total Bilirubin 1.5 mg/dl (0.2-1.0) H 09/20/24 05:09 Direct Bilirubin 0.3 mg/dl (0-0.2) H 09/19/24 11:23 AST TNP 09/20/24 05:09 ALT 15 U/L (7-52) 09/20/24 05:09 Alkaline Phosphatase 48 U/L (34-104) 09/20/24 05:09 Ammonia 20.0 umol/L (18-72) 09/19/24 11:23 Troponin I High Sens 12.4 pg/ml (0-20) 09/19/24 11:23 Total Protein 7.4 gm/dl (6.0-8.3) 09/20/24 05:09 Albumin 4.0 gm/dl (3.4-5.0) 09/20/24 05:09 Globulin 3.4 gm/dl (2.5-4.0) 09/20/24 05:09 Albumin/Globulin Ratio 1.2 (0.9-2) 09/20/24 05:09 Procalcitonin 0.05 ng/ml (0-0.5) 09/19/24 12:31 Urine Color Yellow 09/19/24 11:46 Urine Appearance Clear (Clear) 09/19/24 11:46 Urine pH 8.5 (4.5-7.5) H 09/19/24 11:46 Ur Specific Dubois 1.033 (1.000-1.030) H 09/19/24 11:46 Urine Protein 3+ (Negative) H 09/19/24 11:46 Urine Glucose (UA) Negative (Negative) 09/19/24 11:46 Urine Ketones Negative (Negative) 09/19/24 11:46 Urine Blood 3+ (Negative) H 09/19/24 11:46 Urine Nitrite Negative (Negative) 09/19/24 11:46 Urine Bilirubin Negative (Negative) 09/19/24 11:46 Urine Urobilinogen Negative (Negative) 09/19/24 11:46 Ur Leukocyte Esterase Negative (Negative) 09/19/24 11:46 Urine WBC (Auto) 0-5 /hpf (0-5) 09/19/24 11:46 Urine RBC (Auto) >20 /hpf (0-2) H 09/19/24 11:46 U Hyaline Cast (Auto) 0-2 /lpf (0-2) 09/19/24 11:46 U Epithel Cells (Auto) 0-2 /hpf (0-2) 09/19/24 11:46 Urine Bacteria (Auto) None Seen (None Seen) 09/19/24 11:46 Urine Osmolality 747 mOsm/kg (500-800) 09/19/24 Unknown Ur Random Sodium 87 mmol/L 09/19/24 Unknown Fld Lyme DNA (PCR) Cancelled 09/19/24 13:56 Fluid Comment 09/19/24 13:56 CSF Appearance Clear 09/19/24 13:56 CSF Color Colorless 09/19/24 13:56 Xanthrochromic No xanthochromia 09/19/24 13:56 CSF WBC 339 (0-5) H* 09/19/24 13:56 CSF RBC 0 (0-) 09/19/24 13:56 CSF Cell Count Tube # 3 09/19/24 13:56 CSF Mononuclear % Auto 13.0 % 09/19/24 13:56 CSF Polynuclear WBCs 87.0 % 09/19/24 13:56 CSF Chemistry Tube # 1 09/19/24 13:56 CSF Glucose 45 mg/dl (40-70) 09/19/24 13:56 CSF Total Protein 84.3 mg/dl (15-45) H 09/19/24 13:56 CSF VDRL Cancelled 09/19/24 13:56 CSF C.neoform/gat PCR Not Detected (NotDetected) 09/19/24 13:56 CSF CMV DNA (PCR) Not Detected (NotDetected) 09/19/24 13:56 CSF Enterovirus (PCR) Not Detected (NotDetected) 09/19/24 13:56 CSF E. coli K1 (PCR) Not Detected (NotDetected) 09/19/24 13:56 CSF H. influenzae (PCR) Not Detected (NotDetected) 09/19/24 13:56 CSF HSV I (PCR) Not Detected (NotDetected) 09/19/24 13:56 CSF HSV II (PCR) Not Detected (NotDetected) 09/19/24 13:56 CSF HHV 6 (PCR) Not Detected (NotDetected) 09/19/24 13:56 CSF L.monocytogenes PCR Not Detected (NotDetected) 09/19/24 13:56 CSF N. meningitidis PCR Not Detected (NotDetected) 09/19/24 13:56 CSF Parechovirus (PCR) Not Detected (NotDetected) 09/19/24 13:56 CSF S. agalactiae (PCR) Not Detected (NotDetected) 09/19/24 13:56 CSF S. pneumoniae (PCR) Not Detected (NotDetected) 09/19/24 13:56 CSF VZV DNA (PCR) Not Detected (NotDetected) 09/19/24 13:56 Salicylates < 3.0 mg/dl (3.0-30) L 09/19/24 11:23 Acetaminophen 7 ug/ml (10-30) L 09/19/24 11:23 Adenovirus (PCR) Not Detected (NotDetected) 09/19/24 11:19 Anaplasma Smear See Comment 09/19/24 11:23 Babesia Smear See Comment 09/19/24 11:23 B. pertussis DNA (PCR) Not Detected (NotDetected) 09/19/24 11:19 B.parapertussis DNA PCR Not Detected (NotDetected) 09/19/24 11:19 Lyme Specimen Source Cancelled 09/19/24 13:56 Lyme Disease Screen Cancelled 09/19/24 11:23 Lyme DNA Comment Cancelled 09/19/24 13:56 C. pneumoniae DNA (PCR) Not Detected (NotDetected) 09/19/24 11:19 Coronavirus OC43 (PCR) Not Detected (NotDetected) 09/19/24 11:19 Coronavirus HKU1 (PCR) Not Detected (NotDetected) 09/19/24 11:19 Coronavirus 229E (PCR) Not Detected (NotDetected) 09/19/24 11:19 SARS-CoV-2 (PCR) Not Detected (NotDetected) 09/19/24 11:19 Coronavirus NL63 (PCR) Not Detected (NotDetected) 09/19/24 11:19 Human Metapneumovir PCR Not Detected (NotDetected) 09/19/24 11:19 Influenza Type A (PCR) Not Detected (NotDetected) 09/19/24 11:19 Influenza Type B (PCR) Not Detected (NotDetected) 09/19/24 11:19 M. pneumoniae (PCR) Not Detected (NotDetected) 09/19/24 11:19 Parainfluenza 1 (PCR) Not Detected (NotDetected) 09/19/24 11:19 Parainfluenza 2 (PCR) Not Detected (NotDetected) 09/19/24 11:19 Parainfluenza 3 (PCR) Not Detected (NotDetected) 09/19/24 11:19 Parainfluenza 4 (PCR) Not Detected (NotDetected) 09/19/24 11:19 RSV (PCR) Not Detected (NotDetected) 09/19/24 11:19 Entero/Rhino (PCR) Not Detected (NotDetected) 09/19/24 11:19 Impressions Chest X-Ray 09/19/24 11:13 SINGLE VIEW CHEST CLINICAL HISTORY: Sepsis.. FINDINGS: An AP, portable, upright chest radiograph is compared to study dated 12/05/2022 and correlated with chest CT dated 02/07/2018. The cardiomediastinal silhouette is unremarkable noting atherosclerotic calcification of the thoracic aorta. Chronic interstitial thickening is similar to previous. There is bibasilar scarring/atelectasis. No airspace consolidation or large pleural effusion is identified. There is no pneumothorax. The skeletal structures appear osteopenic. The bony thorax is grossly intact. Arthritic change is seen in the shoulders. IMPRESSION: No active disease in the chest. ACT 112: Negative or not required by law. Electronically signed by: Donald Lewis M.D. 09/19/2024 1:[address] 09/19/24 11:[address] OF THE BRAIN; CT ANGIOGRAM OF THE BRAIN; CT ANGIOGRAM OF THE NECK CLINICAL HISTORY: Change in mental status. COMPARISON STUDY: CT of the brain dated 01/08/2019 TECHNIQUE: Unenhanced axial CT scan of the brain is performed. Subsequently, following the IV administration of 112 of Optiray 320, CT angiogram of the head and neck was performed from the aortic arch to the vertex. Images are reviewed in the axial, sagittal, and coronal planes. 3-D MIPS images are created and assessed. IV contrast was administered without complication. All measurements were calculated based on NASCET criteria. A dose lowering technique was utilized adhering to the principles of ALARA. CT DOSE: 1349.92 mGy.cm FINDINGS: Brain parenchyma: There is age-related involutional change noted minimal microangiopathic disease. There is no hemorrhage, mass effect, or evidence of acute territorial ischemia by CT criteria. There is no evidence of enhancing mass lesion on the angiogram phase images. The ventricles, sulci, and cisterns are prominent secondary to involutional change. Ramirez-white matter differentiation is preserved. No extra-axial fluid collection is seen. Thoracic aorta: Visualized portions of the thoracic aorta are normal in caliber. The aortic arch demonstrates standard 3-vessel anatomy. Right carotid arterial system: The right common carotid artery is widely patent. There is atherosclerotic plaque in the carotid bulb which causes approximately 50% focal stenosis of the origin of the right internal carotid artery as seen on image #230. The remainder of the internal and external carotid arteries are patent. Left carotid arterial system: The left common carotid artery is widely patent, as are the left internal and external carotid arteries. Calcified plaque is seen in the carotid bulb. Vertebral arteries: The vertebral arteries are patent bilaterally noted left- sided dominance. Subclavian arteries: Widely patent bilaterally. Intracranial vasculature: There is atherosclerotic calcification of the cavernous carotid arteries. The internal carotid arteries are patent at the skull base, as are the anterior and middle cerebral arteries bilaterally. The vertebrobasilar system and posterior cerebral arteries are widely patent. The left vertebral artery is dominant. The right vertebral artery is diminutive and largely terminates as the PICA. There is no aneurysm, high-grade stenosis, or focal vessel cut off seen throughout the intracranial circulation. Jugular veins: Patent bilaterally. Dural sinuses: Patent. Lung apices: Partially visualized upper lobe lung parenchyma appears clear. Soft tissues: The visualized pharyngeal soft tissues are normal in appearance noting angiographic phase technique. The oropharyngeal airway appears widely patent. The thyroid gland is atrophic. The salivary glands are normal in appearance. No cervical lymphadenopathy is seen. Skeletal structures: The skeletal structures are osteopenic. The calvarium appears intact. The cervical spine is maintained noting mild multilevel spondylosis. Orbits: The bony orbits are intact. Orbital contents are normal as visualized noting bilateral ocular lens implants. Sinuses and mastoids: The paranasal sinuses are clear. The mastoid air cells are well pneumatized. IMPRESSION: 1. There is no hemorrhage, mass effect, or evidence of acute territorial ischemia by CT criteria. 2. Unremarkable CT angiogram of the brain. 3. There is approximately 50% focal stenosis at the origin of the right internal carotid artery. 4. Otherwise unremarkable CT angiogram of the neck. ACT 112: Negative or not required by law. Electronically signed by: Donald Lewis M.D. 09/19/2024 11:40 AM Head CTA 09/19/24 11:[address] OF THE BRAIN; CT ANGIOGRAM OF THE BRAIN; CT ANGIOGRAM OF THE NECK CLINICAL HISTORY: Change in mental status. COMPARISON STUDY: CT of the brain dated 01/08/2019 TECHNIQUE: Unenhanced axial CT scan of the brain is performed. Subsequently, following the IV administration of 112 of Optiray 320, CT angiogram of the head and neck was performed from the aortic arch to the vertex. Images are reviewed in the axial, sagittal, and coronal planes. 3-D MIPS images are created and assessed. IV contrast was administered without complication. All measurements were calculated based on NASCET criteria. A dose lowering technique was utilized adhering to the principles of ALARA. CT DOSE: 1349.92 mGy.cm FINDINGS: Brain parenchyma: There is age-related involutional change noted minimal microangiopathic disease. There is no hemorrhage, mass effect, or evidence of acute territorial ischemia by CT criteria. There is no evidence of enhancing mass lesion on the angiogram phase images. The ventricles, sulci, and cisterns are prominent secondary to involutional change. Ramirez-white matter differentiation is preserved. No extra-axial fluid collection is seen. Thoracic aorta: Visualized portions of the thoracic aorta are normal in caliber. The aortic arch demonstrates standard 3-vessel anatomy. Right carotid arterial system: The right common carotid artery is widely patent. There is atherosclerotic plaque in the carotid bulb which causes approximately 50% focal stenosis of the origin of the right internal carotid artery as seen on image #230. The remainder of the internal and external carotid arteries are patent. Left carotid arterial system: The left common carotid artery is widely patent, as are the left internal and external carotid arteries. Calcified plaque is seen in the carotid bulb. Vertebral arteries: The vertebral arteries are patent bilaterally noted left- sided dominance. Subclavian arteries: Widely patent bilaterally. Intracranial vasculature: There is atherosclerotic calcification of the cavernous carotid arteries. The internal carotid arteries are patent at the skull base, as are the anterior and middle cerebral arteries bilaterally. The vertebrobasilar system and posterior cerebral arteries are widely patent. The left vertebral artery is dominant. The right vertebral artery is diminutive and largely terminates as the PICA. There is no aneurysm, high-grade stenosis, or focal vessel cut off seen throughout the intracranial circulation. Jugular veins: Patent bilaterally. Dural sinuses: Patent. Lung apices: Partially visualized upper lobe lung parenchyma appears clear. Soft tissues: The visualized pharyngeal soft tissues are normal in appearance noting angiographic phase technique. The oropharyngeal airway appears widely patent. The thyroid gland is atrophic. The salivary glands are normal in appearance. No cervical lymphadenopathy is seen. Skeletal structures: The skeletal structures are osteopenic. The calvarium appears intact. The cervical spine is maintained noting mild multilevel spondylosis. Orbits: The bony orbits are intact. Orbital contents are normal as visualized noting bilateral ocular lens implants. Sinuses and mastoids: The paranasal sinuses are clear. The mastoid air cells are well pneumatized. IMPRESSION: 1. There is no hemorrhage, mass effect, or evidence of acute territorial ischemia by CT criteria. 2. Unremarkable CT angiogram of the brain. 3. There is approximately 50% focal stenosis at the origin of the right internal carotid artery. 4. Otherwise unremarkable CT angiogram of the neck. ACT 112: Negative or not required by law. Electronically signed by: Donald Lewis M.D. 09/19/2024 11:40 AM Neck CTA 09/19/24 11:[address] OF THE BRAIN; CT ANGIOGRAM OF THE BRAIN; CT ANGIOGRAM OF THE NECK CLINICAL HISTORY: Change in mental status. COMPARISON STUDY: CT of the brain dated 01/08/2019 TECHNIQUE: Unenhanced axial CT scan of the brain is performed. Subsequently, following the IV administration of 112 of Optiray 320, CT angiogram of the head and neck was performed from the aortic arch to the vertex. Images are reviewed in the axial, sagittal, and coronal planes. 3-D MIPS images are created and assessed. IV contrast was administered without complication. All measurements were calculated based on NASCET criteria. A dose lowering technique was utilized adhering to the principles of ALARA. CT DOSE: 1349.92 mGy.cm FINDINGS: Brain parenchyma: There is age-related involutional change noted minimal microangiopathic disease. There is no hemorrhage, mass effect, or evidence of acute territorial ischemia by CT criteria. There is no evidence of enhancing mass lesion on the angiogram phase images. The ventricles, sulci, and cisterns are prominent secondary to involutional change. Ramirez-white matter differentiation is preserved. No extra-axial fluid collection is seen. Thoracic aorta: Visualized portions of the thoracic aorta are normal in caliber. The aortic arch demonstrates standard 3-vessel anatomy. Right carotid arterial system: The right common carotid artery is widely patent. There is atherosclerotic plaque in the carotid bulb which causes approximately 50% focal stenosis of the origin of the right internal carotid artery as seen on image #230. The remainder of the internal and external carotid arteries are patent. Left carotid arterial system: The left common carotid artery is widely patent, as are the left internal and external carotid arteries. Calcified plaque is seen in the carotid bulb. Vertebral arteries: The vertebral arteries are patent bilaterally noted left- sided dominance. Subclavian arteries: Widely patent bilaterally. Intracranial vasculature: There is atherosclerotic calcification of the cavernous carotid arteries. The internal carotid arteries are patent at the skull base, as are the anterior and middle cerebral arteries bilaterally. The vertebrobasilar system and posterior cerebral arteries are widely patent. The le ft vertebral artery is dominant. The right vertebral artery is diminutive and largely terminates as the PICA. There is no aneurysm, high-grade stenosis, or focal vessel cut off seen throughout the intracranial circulation. Jugular veins: Patent bilaterally. Dural sinuses: Patent. Lung apices: Partially visualized upper lobe lung parenchyma appears clear. Soft tissues: The visualized pharyngeal soft tissues are normal in appearance noting angiographic phase technique. The oropharyngeal airway appears widely patent. The thyroid gland is atrophic. The salivary glands are normal in appeara nce. No cervical lymphadenopathy is seen. Skeletal structures: The skeletal structures are osteopenic. The calvarium appears intact. The cervical spine is maintained noting mild multilevel spondylosis. Orbits: The bony orbits are intact. Orbital contents are normal as visualized noting bilateral ocular lens implants. Sinuses and mastoids: The paranasal sinuses are clear. The mastoid air cells are well pneumatized. IMPRESSION: 1. There is no hemorrhage, mass effect, or evidence of acute territorial ischemia by CT criteria. 2. Unremarkable CT angiogram of the brain. 3. There is approximately 50% focal stenosis at the origin of the right internal carotid artery. 4. Otherwise unremarkable CT angiogram of the neck. ACT 112: Negative or not required by law. Electronically signed by: Donald Lewis M.D. 09/19/2024 11:40 AM PG Care Time/CCT Total # of Minutes Spent Total Time Spent with Patient: Total time spent is greater than 50% in coordination of care (as documented) at patient's floor/unit and/or counseling patient: Coding Level of Care Code 59027 IN/OBS CONSULT LVL 5,80M Diagnoses Hyponatremia E87.1 Altered mental status R41.82 Meningitis G03.9
[2024-09-20 10:02] LABS: Calcium 8.9 mg/dl (8.6-10.3); Potassium 3.9 mmol/L (3.5-5.1)
[2024-09-20 10:07] LABS: BUN Creatinine Ratio 12.4 (10-20); Creatinine Clr Calc Pharmacy 78.3 ml/min
--- NOTE | 2024-09-20 11:20 | Hospitalist Progress Note ---
Date of Service September 20, 2024 Assessment & Plan (1) Meningitis: Plan: Patient presents with Acute onset of fever (89 F), confusion, vomiting, and altered mental status the evening of 09/18 into the morning of 09/19 A presumptive diagnosis of meningitis was made after LP, which showed elevated protein and WBC and normal glucose Initially started empirically on Vancomycin + Rocephin + Unasyn + acyclovir Biofire did not suggest staph or strep pneumo and Vanc has been discontinued Tickborne panel ordered, pending Brain MRI w/wo ordered, pending Acetaminophen 1000 mg IV q8h as needed for fever/pain Morphine as needed for breakthrough pain IV antiemetics as needed Infectious disease consult appreciated, Agreed with dexamethasone ID will plan to see the patient on Saturday; (2) Hyponatremia: Plan: NA 128 on arrival, 127 this morning after hypertonic saline and salt tablets SIADH labs ordered, pending (hx of elevated random urine sodium in 2017) Nephrology on consult (3) Altered mental status: Plan: Acute encephalopathy is now Resolved patient is now back to normal Plan Disposition:continue to monitor in the [facility] Full code VTE PPx: Lovenox 40 mg SQ q24h Admission and Anticipated Discharge Date Admission Date: September 19, 2024 Subjective patient seen and examined, fells better over all Review of Systems Review of Systems: All systems reviewed are negative, apart from the ones contained in the history. Physical Exam Physical Exam: The patient is awake, alert and oriented 3, well developed and well nourished, normocephalic and atraumatic, lying in bed and in no acute distress. HEENT--PERRL, EOMI, mucous membranes and oropharynx mildly dry Neck--supple. No JVD. No bruits. Thyroid normal, trachea midline, no adenopathy. Heart--normal S1 and S2. No murmurs, rubs or gallops. Lungs--clear bilaterally, no respiratory distress, no accessory muscle use. Abdomen--normal bowel sounds and soft. Extremities--no cyanosis or clubbing. No edema. Dermatologic--normal skin turgor, normal color, no abnormal lymph nodes, no rash. Neurologic--cranial nerves II through XII grossly intact. Rheumatologic--normal range of motion. Psychiatric--normal affect. Results & Data Results & Data Vital Signs (Past 12 Hours) Vital Signs Temp Pulse Pulse Resp BP Pulse Ox O2 Del Method 09/20/24 10:41 98 H 09/20/24 08:59 Room Air 09/20/24 07:59 98.6 F 99 H 18 115/72 97 Room Air 09/20/24 03:30 97.5 F L 85 16 118/73 90 Room Air 09/19/24 23:22 98.1 F 78 18 127/73 98 Room Air PG Care Time/CCT Total # of Minutes Spent Total Time Spent with Patient: Total time spent is greater than 50% in coordination of care (as documented) at patient's floor/unit and/or counseling patient: Coding Level of Care Code 31097 SUB INP/OBS CARE 2/35MIN Diagnoses Meningitis G03.9 Hyponatremia E87.1 Altered mental status R41.82 Time Spent (min) 35
[2024-09-20] MEDS: GADOBUTROL 65ML VIAL IV ONE (11:29)
--- NOTE | 2024-09-20 12:14 | Magnetic Resonance Report ---
MRI OF THE BRAIN COMBO CLINICAL HISTORY: Encephalitis. Strokelike symptoms. Change in mental status. COMPARISON STUDY: CT of the brain dated 09/19/2024. TECHNIQUE: MRI of the brain was performed utilizing various T1 and T2-weighted sequences in the axial , sagittal, and coronal planes. Contrast-enhanced sequences were acquired following the administratio n of 7 cc of Gadavist. FINDINGS: Brain parenchyma: There is age-related involutional change noting minimal microangiopathic disease. A developmental venous anomaly is incidentally noted in the left frontal lobe. There is no hemorrhage or mass effect. There is no restricted diffusion to suggest acute ischemia. No enhancing mass lesion is identified on the postcontrast images. Ramirez-white matter differentiation is preserved. No extra-ax ial fluid collection is seen. The cerebellar tonsils are normal in configuration. Ventricles, sulci, and cisterns: Prominent secondary to involutional change. Pituitary and sella: Unremarkable. Intracranial vasculature: Normal flow voids are maintained at the skull base. Orbits: The bony orbits are grossly intact. Orbital contents are normal in appearance noting bilatera l ocular lens implants. Sinuses and mastoids: Clear. Calvarium: Unremarkable. Cervical cord: Partially visualized cervical spinal cord is normal in morphology and signal intensity . IMPRESSION: No acute intracranial abnormality. ACT 112: Negative or not required by law. Electronically signed by: Donald Lewis M.D. 09/20/2024 12:11 PM
[2024-09-20 13:00] LABS: BUN Creatinine Ratio 12.4 (10-20); Calcium 8.9 mg/dl (8.6-10.3); Creatinine Clr Calc Pharmacy 71.9 ml/min; Potassium 4.5 mmol/L (3.5-5.1)
[2024-09-20] MEDS: ACETAMINOPHEN 1,000 MG/100 ML VIAL IV PRN (13:12)
[2024-09-20 15:07] LABS: iSTAT Creatinine 1.1 mg/dl (0.6-1.3); iSTAT Hemoglobin 13.9 g/dl (14.0-18.0); iSTAT Ionized Calcium 1.06 mmol/l (1.12-1.32); iSTAT Potassium 4.7 mmol/L (3.3-5.0)
[2024-09-20 15:46] LABS: BUN Creatinine Ratio 12.6 (10-20); Calcium 8.9 mg/dl (8.6-10.3); Creatinine Clr Calc Pharmacy 62.8 ml/min; Potassium 3.9 mmol/L (3.5-5.1)
[2024-09-20 18:20] LABS: BUN Creatinine Ratio 12.8 (10-20); Calcium 8.9 mg/dl (8.6-10.3); Creatinine Clr Calc Pharmacy 55.8 ml/min; Potassium 4.4 mmol/L (3.5-5.1)
[2024-09-20 21:26] LABS: Calcium 9.1 mg/dl (8.6-10.3); Creatinine Clr Calc Pharmacy 57.6 ml/min; Potassium 3.7 mmol/L (3.5-5.1)
[2024-09-20] MEDS: CALCIUM CARBONATE 500 MG CHEWABLE TAB PO PRN (22:18)
[2024-09-20] MEDS: CALCIUM CARBONATE 500 MG CHEWABLE TAB ONE (23:21)
--- NOTE | 2024-09-21 08:57 | Nephrology Progress Note ---
Date of Service September 21, 2024 Assessment & Plan (1) Hyponatremia: Plan: * Patient has a longstanding history of SIADH managed with free water restriction, NaCl tablets and loop diuretic * Acute exacerbation of hyponatremia likely related to meningitis * Serum Na has corrected. Mental status is back to baseline * Continue outpatient regimen of NaCl 1 g TID, furosemide 20 mg qAM and 1500 cc/day free water fluid restriction * Monitor UO and daily BMP (2) Altered mental status: Plan: * Likely related to meningitis. CSF leukocytosis noted * Blood and CSF cultures are negative. Possible viral meningitis * Patient remains on ceftriaxone, ampicillin, acyclovir, dexamethasone therapy as per primary service (3) Meningitis: Admission and Anticipated Discharge Date Admission Date: September 19, 2024 Subjective Mr. Huitron was evaluated in his hospital room this morning. He was A&O x3, sitting up in bed and reported that his HERNANDEZ had resolved Review of Systems Constitutional: no fever Eyes: no problem reported Ear, Nose, Mouth, Throat: no problem reported Respiratory: no cough and no dyspnea Cardiovascular: no chest pain Gastrointestinal: no abdominal pain, no nausea, no vomiting and no diarrhea/loose stools Genitourinary: no dysuria or no hematuria Integumentary: no rash Neurologic: no headache(s) Physical Exam Constitutional: not in distress Eyes: PERRL, conjunctivae normal, anicteric sclerae ENMT: external ear and nose normal, oropharynx normal Neck: trachea midline, no thyromegaly Respiratory: normal respiratory effort, lungs clear to auscultation Cardiovascular: RRR, no murmur, no edema Gastrointestinal (Abdomen): normal bowel sounds, soft, nontender, no hepatosplenomegaly Skin: no rashes, warm and dry Results & Data Vital Signs (Past 12 Hours) Vital Signs Temp Pulse Pulse Resp BP Pulse Ox O2 Del Method 09/21/24 07:36 80 09/21/24 07:16 36.5 C 96 H 18 147/66 H 95 Room Air 09/21/24 03:00 36.6 C 95 H 18 133/69 Room Air 09/21/24 00:13 36.6 C 82 18 116/64 98 Room Air 09/20/24 21:45 84 Laboratory Results Laboratory Results - last 24 hr 09/19/24 09/20/24 09/20/24 11:20 09:30 12:26 WBC RBC Hgb POC Hgb 13.9 L Hct POC Hct 41 L MCV MCH MCHC Plt Count POC Sodium 129 L Sodium 127 L 127 L POC Potassium 4.7 Potassium 3.9 4.5 POC Chloride 94 L Chloride 97 L 96 L Carbon Dioxide 20 L 23 POC Total CO2 24 Anion Gap 10 8 POC Anion Gap 17.0 POC BUN 14 BUN 11 12 Creatinine 0.89 0.97 POC Creatinine 1.1 Est Cr Clr Drug Dosing 78.3 71.9 eGFR 92.76 84.50 BUN/Creatinine Ratio 12.4 12.4 Glucose 200 H 170 H POC Glucose (other) 113 H Calcium 8.9 8.9 POC Ioniz Calcium Donny 1.06 L Total Bilirubin AST ALT Alkaline Phosphatase Total Protein Albumin Globulin Albumin/Globulin Ratio Urine Osmolality Random Vancomycin 09/20/24 09/20/24 09/20/24 15:14 17:46 20:55 WBC RBC Hgb POC Hgb Hct POC Hct MCV MCH MCHC Plt Count POC Sodium Sodium 129 L 127 L 131 L POC Potassium Potassium 3.9 4.4 3.7 POC Chloride Chloride 99 98 100 Carbon Dioxide 21 22 21 POC Total CO2 Anion Gap 9 7 10 POC Anion Gap POC BUN BUN 14 16 17 Creatinine 1.11 1.25 1.21 POC Creatinine Est Cr Clr Drug Dosing 62.8 55.8 57.6 eGFR 71.88 62.33 64.81 BUN/Creatinine Ratio 12.6 12.8 14.0 Glucose 181 H 221 H 153 H POC Glucose (other) Calcium 8.9 8.9 9.1 POC Ioniz Calcium Donny Total Bilirubin AST ALT Alkaline Phosphatase Total Protein Albumin Globulin Albumin/Globulin Ratio Urine Osmolality Random Vancomycin 09/20/24 09/21/24 Unknown 08:18 WBC Pending RBC Pending Hgb Pending POC Hgb Hct Pending POC Hct MCV Pending MCH Pending MCHC Pending Plt Count Pending POC Sodium Sodium Pending POC Potassium Potassium Pending POC Chloride Chloride Pending Carbon Dioxide Pending POC Total CO2 Anion Gap Pending POC Anion Gap POC BUN BUN Pending Creatinine Pending POC Creatinine Est Cr Clr Drug Dosing Pending eGFR Pending BUN/Creatinine Ratio Pending Glucose Pending POC Glucose (other) Calcium Pending POC Ioniz Calcium Donny Total Bilirubin Pending AST Pending ALT Pending Alkaline Phosphatase Pending Total Protein Pending Albumin Pending Globulin Pending Albumin/Globulin Ratio Pending Urine Osmolality 273 L Random Vancomycin Pending Laboratory Results - last 24 hr 09/19/24 09/20/24 09/20/24 11:20 09:30 12:26 WBC RBC Hgb POC Hgb 13.9 L Hct POC Hct 41 L MCV MCH MCHC RDW Std Deviation RDW Coeff of Rachel Plt Count MPV Immature Gran % (Auto) Neut % (Auto) Lymph % (Auto) [place] % (Auto) Eos % (Auto) Baso % (Auto) Neut # (Auto) Lymph # (Auto) [place] # (Auto) Eos # (Auto) Baso # (Auto) Immature Gran # (Auto) Polychromasia POC Sodium 129 L Sodium 127 L 127 L POC Potassium 4.7 Potassium 3.9 4.5 POC Chloride 94 L Chloride 97 L 96 L Carbon Dioxide 20 L 23 POC Total CO2 24 Anion Gap 10 8 POC Anion Gap 17.0 POC BUN 14 BUN 11 12 Creatinine 0.89 0.97 POC Creatinine 1.1 Est Cr Clr Drug Dosing 78.3 71.9 eGFR 92.76 84.50 BUN/Creatinine Ratio 12.4 12.4 Glucose 200 H 170 H POC Glucose (other) 113 H Calcium 8.9 8.9 POC Ioniz Calcium Donny 1.06 L Total Bilirubin AST ALT Alkaline Phosphatase Total Protein Albumin Globulin Albumin/Globulin Ratio Urine Osmolality Random Vancomycin 09/20/24 09/20/24 09/20/24 15:14 17:46 20:55 WBC RBC Hgb POC Hgb Hct POC Hct MCV MCH MCHC RDW Std Deviation RDW Coeff of Rachel Plt Count MPV Immature Gran % (Auto) Neut % (Auto) Lymph % (Auto) [place] % (Auto) Eos % (Auto) Baso % (Auto) Neut # (Auto) Lymph # (Auto) [place] # (Auto) Eos # (Auto) Baso # (Auto) Immature Gran # (Auto) Polychromasia POC Sodium Sodium 129 L 127 L 131 L POC Potassium Potassium 3.9 4.4 3.7 POC Chloride Chloride 99 98 100 Carbon Dioxide 21 22 21 POC Total CO2 Anion Gap 9 7 10 POC Anion Gap POC BUN BUN 14 16 17 Creatinine 1.11 1.25 1.21 POC Creatinine Est Cr Clr Drug Dosing 62.8 55.8 57.6 eGFR 71.88 62.33 64.81 BUN/Creatinine Ratio 12.6 12.8 14.0 Glucose 181 H 221 H 153 H POC Glucose (other) Calcium 8.9 8.9 9.1 POC Ioniz Calcium Donny Total Bilirubin AST ALT Alkaline Phosphatase Total Protein Albumin Globulin Albumin/Globulin Ratio Urine Osmolality Random Vancomycin 09/20/24 09/21/24 Unknown 08:18 WBC 22.15 H RBC 4.16 L Hgb 12.3 L POC Hgb Hct 33.7 L POC Hct MCV 81.0 MCH 29.6 MCHC 36.5 H RDW Std Deviation 36.4 RDW Coeff of Rachel 12.5 Plt Count 238 MPV 9.2 L Immature Gran % (Auto) 0.8 Neut % (Auto) 93.0 Lymph % (Auto) 2.6 [place] % (Auto) 3.5 Eos % (Auto) 0.0 Baso % (Auto) 0.1 Neut # (Auto) 20.60 H Lymph # (Auto) 0.57 L [place] # (Auto) 0.78 H Eos # (Auto) 0.00 Baso # (Auto) 0.03 Immature Gran # (Auto) 0.17 Polychromasia 1+ POC Sodium Sodium 135 L POC Potassium Potassium 3.5 POC Chloride Chloride 102 Carbon Dioxide 23 POC Total CO2 Anion Gap 10 POC Anion Gap POC BUN BUN 19 Creatinine 0.93 POC Creatinine Est Cr Clr Drug Dosing 75.0 eGFR 88.89 BUN/Creatinine Ratio 20.4 H Glucose 146 H POC Glucose (other) Calcium 9.2 POC Ioniz Calcium Donny Total Bilirubin 0.7 D AST 58 H ALT 22 Alkaline Phosphatase 45 Total Protein 7.2 Albumin 4.1 Globulin 3.1 Albumin/Globulin Ratio 1.3 Urine Osmolality 273 L Random Vancomycin 4.4 L PG Care Time/CCT Total # of Minutes Spent Total Time Spent with Patient: Total time spent is greater than 50% in coordination of care (as documented) at patient's floor/unit and/or counseling patient: Coding Level of Care Code 61287 SUB INP/OBS CARE 3/50MIN Diagnoses Hyponatremia E87.1 Altered mental status R41.82 Meningitis G03.9
[2024-09-21 09:03] LABS: Hematocrit (blood only) 33.7 % (42.0-52.0); Hemoglobin 12.3 g/dl (14.0-18.0); Mean Corpuscular Hemoglobin 29.6 pg (25.0-34.0); Mean Corpuscular Hgb Conc 36.5 g/dL (32.0-36.0); Mean Platelet Volume 9.2 fL (9.4-12.4); Platelet Count 238 K/uL (130-400); RDW Coefficient of Variation 12.5 % (11.5-14.5); RDW Standard Deviation 36.4 fL (36.4-46.3); Red Blood Count 4.16 M/uL (4.70-6.10); White Blood Count 22.15 K/ul (4.8-10.8)
[2024-09-21 09:24] LABS: Basophils # (auto) 0.03 K/uL (0.00-0.20); Basophils % (auto) 0.1 %; Immature Granulocytes # (auto) 0.17 K/uL (0.01-0.20); Immature Granulocytes % (auto) 0.8 %; Lymphocytes # (auto) 0.57 K/uL (1.20-3.40); Lymphocytes % (auto) 2.6 %; Monocytes # (auto) 0.78 K/uL (0.11-0.59); Monocytes % (auto) 3.5 %; Polychromasia 1+
[2024-09-21 09:30] LABS: Albumin Globulin Ratio 1.3 (0.9-2); Albumin Level 4.1 gm/dl (3.4-5.0); BUN Creatinine Ratio 20.4 (10-20); Bilirubin,Total 0.7 mg/dl (0.2-1.0); Calcium 9.2 mg/dl (8.6-10.3); Globulin 3.1 gm/dl (2.5-4.0); Potassium 3.5 mmol/L (3.5-5.1); Total Protein 7.2 gm/dl (6.0-8.3)
--- NOTE | 2024-09-21 09:52 | Hospitalist Progress Note ---
Date of Service September 21, 2024 Assessment & Plan (1) Meningitis: Plan: Patient presented to the [facility] with Acute onset of fever (89 F), confusion, vomiting, and altered mental status the evening of 09/18 into the morning of 09/19 A presumptive diagnosis of meningitis was made after LP, which showed elevated protein and WBC and normal glucose Initially started empirically on Vancomycin + Rocephin + Unasyn + acyclovir Biofire did not suggest staph or strep pneumo and Vanc has been discontinued Tickborne panel ordered, pending Brain MRI w/wo is wnl, no acute pathology Acetaminophen 1000 mg IV q8h as needed for fever/pain Morphine as needed for breakthrough pain IV antiemetics as needed Infectious disease consult appreciated, Agreed with dexamethasone ID on consult Patient feels over all better today (2) Hyponatremia: Plan: NA 128 on arrival, 131 this morning after hypertonic saline and salt tablets SIADH hx in the past Nephrology on consult, appreciate recs (3) Altered mental status: Plan: Acute encephalopathy is now Resolved patient is now back to normal MRI wnl (4) Leukocytosis: Plan: most likely from the steroids Patient is afebrile Plan Disposition:continue to monitor in the [facility] Full code VTE PPx: Lovenox 40 mg SQ q24h Admission and Anticipated Discharge Date Admission Date: September 19, 2024 Subjective patient seen and examined, fells better over all, denies fever or chills Review of Systems Review of Systems: All systems reviewed are negative, apart from the ones contained in the history. Physical Exam Physical Exam: The patient is awake, alert and oriented 3, well developed and well nourished, normocephalic and atraumatic, lying in bed and in no acute distress. HEENT--PERRL, EOMI, mucous membranes and oropharynx mildly dry Neck--supple. No JVD. No bruits. Thyroid normal, trachea midline, no adenopathy. Heart--normal S1 and S2. No murmurs, rubs or gallops. Lungs--clear bilaterally, no respiratory distress, no accessory muscle use. Abdomen--normal bowel sounds and soft. Extremities--no cyanosis or clubbing. No edema. Dermatologic--normal skin turgor, normal color, no abnormal lymph nodes, no rash. Neurologic--cranial nerves II through XII grossly intact. Rheumatologic--normal range of motion. Psychiatric--normal affect. Results & Data Results & Data Vital Signs (Past 12 Hours) Vital Signs Temp Pulse Pulse Resp BP Pulse Ox O2 Del Method 09/21/24 07:36 80 09/21/24 07:16 97.7 F 96 H 18 147/66 H 95 Room Air 09/21/24 03:00 97.9 F 95 H 18 133/69 Room Air 09/21/24 00:13 97.9 F 82 18 116/64 98 Room Air PG Care Time/CCT Total # of Minutes Spent Total Time Spent with Patient: Total time spent is greater than 50% in coordination of care (as documented) at patient's floor/unit and/or counseling patient: Coding Level of Care Code 18447 SUB INP/OBS CARE 2/35MIN Diagnoses Meningitis G03.9 Hyponatremia E87.1 Altered mental status R41.82 Leukocytosis D72.829 Time Spent (min) 35
--- NOTE | 2024-09-21 12:34 | Infectious Disease Consult ---
Date of Consultation September 21, 2024 Assessment & Plan (1) Meningitis: (2) Altered mental status: (3) Encephalitis: Plan This is a 69-year-old male with a past medical history of esophageal stenosis, migraine headaches,Crohn's ileitis, ? ankylosing spondylosis, hypothyroidism wh o presented to the ED on 09/19 with fever, confusion, headache and vomiting. Patient is now awake and alert and can provide a history. He reports that he had acute onset of headache w/ temperature of 105 around 1 PM the day before admission. Per his he was not answering questions correctly and was extremely confused. His gait was off balance. He had trouble putting on his socks. He denied sick contacts. [place] and does a lot of work outdoors. He has no history of recent cold sores, rash, shingles outbreak, cough, chest pain, change in urine or bowel habits. He denies travel He admits to removing a tick from his left upper extremity about 2-1/2 weeks ago. He is up-to-date with his immunizations. He is on 2.5 mg of prednisone every other day for ankylosing spondylosis. In the ED, temperature 39.1, pulse 87, respiratory rate 19, blood pressure 137/82, O2 sats 96% on room air. Labs: WBC 10.38, hemoglobin 13.5, hematocrit 13.9, platelets 246, sodium 129, BUN 12, creatinine 1.04, lactate 1.7, total bili 2.4, direct bili 0.3, AST 25, ALT 17, alk phos 53. Chest x-ray with no active disease. CT head with no hemorrhage, mass effect or acute ischemia. Unremarkable CT angiogram. Brain MRI with no acute intra cranial abnormality. He underwent a lumbar puncture which demonstrated a WBC of 339, 0 RBC, 87% polynuclear cells, 13% mononuclear cells, protein 84.3, glucose 45. Meningitis/encephalitis PCR panel negative. CSF culture negative to date. He was started on IV vancomycin, ceftriaxone, ampicillin, IV acyclovir and steroids. ID consulted for encephalitis. He feels well and is back to his baseline. He is awake and alert oriented x 3. He is asking when he can be discharged home. He no longer has headaches or confusion. Microbiology: Blood vtxuanr05/26 NGTD CSF culture 09/19 no growth CSF smear negative, culture NGTD Antibiotics/antivirals: Ceftriaxone 09/19ongoing Vancomycin 09/19ongoing Acyclovir 09/19ongoing Ampicillin 09/19ongoing 1 Meningitis/Encephalitis with neutrophilic predominance: unclear etiology - M/E PCR is negative ( including VZV + HSV PCR) - CSF cx NGTD 2. Tick exposure - removed tick from LUE AC fossa ~ 2 wks ago 3. Leukocytosis, sp Dexamethasone Discussion: He presents with clinical signs concerning for meningitis with fever, confusion, headache, nausea. CSF fluid results consistent with meningitis picture with a neutrophilic predominance/ bacterial meningitis with elevated protein. A meningitis/Encephalitis PCR negative for HSV/VZV/Listeria monocytogenes,Neisseria meningitidis, H. influenzae, E. coli, Streptococcus pneumoniae and Streptococcus agalactiae. Multiplex PCR test does not test for all bacterial viral or fungal pathogens. CSF West Nile virus testing, CSF Lyme serology, VDRL pending. I woud expect a lymphocytic or mononuclear predominance in csf as opposed to neutrophil predominance with Lyme meningitis Recommendations Clinically improved with resolution of HERNANDEZ and Mental status on 09/21 evaluation Continue ceftriaxone 2 g IV every 12 hours -Continue vancomycin iv per pharmacy protocol Can discontinue acyclovir as CSF HSV/VZV PCR negative and CSF fluid preliminary findings more consistent with a bacterial presentation. _Can discontinue ampicillin as Listeria monocytogenes pcr negative Follow up CSF VDRL, CSF Lyme serology , CSF west nile ab, CSF AFB culture Ordered syphilis serum ab Follow up Ehrlichia/anaplasma and Babesia Serology. I doubt these will be positive as patient has not been started on directed therapy for these pathogens with clinical improvement. Ceftriaxone does not cover Ehrlichia/Anaplasma or Babesia. It does cover Lyme disease -Follow up Rickettsia, Typhus fever and Q fever ( Coxiella burnetii) serology. - Monitor WBc At this time it is unclear what organism may be the cause of his meningitis and how long to treat. Thank you for this consult. ID will continue to follow Emory Goldberg MD, MPH Infectious Disease [facility] Call [phone] with questions Consultation Information Consultation was provided via telemedicine using two-way real-time interactive telecommunication between the patient and the telemedicine provider. For the duration of the visit, the provider was performing the assessment from a different facility than the patient. This includesuse of bluetooth stethoscope forauscultationperformed by the telepresenter that the telemedicine provider can hear if described in the physical exam. Millinery Teacher contact information: Please call [facility] [phone]. (Phone Number For Physician Use Only) After establishing a telemedicine visit, patient was: Patient was verified with two unique identifiers Time Spent with Patient: Initial => 75 min History of Present Illness Reason for Consultation: Acute Encephalitis Requesting Physician: NINA Guerrero Attending Physician: Anne Carroll MD History of Present Illness This is a 69-year-old male with a past medical history of esophageal stenosis, migraine headaches,Crohn's ileitis, ? ankylosing spondylosis, hypothyroidism who presented to the ED on 09/19 with fever, confusion, headache and vomiting. Patient is now awake and alert and can provide a history. He reports that he had acute onset of headache w/ temperature of 105 around 1 PM the day before admission. Per his he was not answering questions correctly and was extremely confused. His gait was off balance. He had trouble putting on his socks. He denied sick contacts. [place] area and does a lot of work outdoors. He has no history of recent cold sores, rash, shingles outbreak, cough, chest pain, change in urine or bowel habits. He denies travel He admits to removing a tick from his left upper extremity about 2-1/2 weeks ago. He is up-to-date with his immunizations. He is on 2.5 mg of prednisone every other day for ankylosing spondylosis. In the ED, temperature 39.1, pulse 87, respiratory rate 19, blood pressure 13 7/82, O2 sats 96% on room air. Labs: WBC 10.38, hemoglobin 13.5, hematocrit 13.9, platelets 246, sodium 129, BUN 12, creatinine 1.04, lactate 1.7, total bili 2.4, direct bili 0.3, AST 25, ALT 17, alk phos 53. Chest x-ray with no active disease. CT head with no hemorrhage, mass effect or acute ischemia. Unremarkable CT angiogram. Brain MRI with no acute intra cranial abnormality. He underwent a lumbar puncture which demonstrated a WBC of 339, 0 RBC, 87% polynuclear cells, 13% mononuclear cells, protein 84.3, glucose 45. Meningitis/encephalitis PCR panel negative. CSF culture negative to date. He was started on IV vancomycin, ceftriaxone, ampicillin, IV acyclovir and steroids. ID consulted for encephalitis. He feels well and is back to his baseline. He is awake and alert oriented x 3. He is asking when he can be discharged home. He no longer has headaches or confusion. Allergies Allergy/AdvReac Type Severity Reaction Status Date / Time metronidazole Allergy Intermediate NUMBNESS - Verified 09/17/24 15:15 IV FORMULATION zolpidem Allergy Intermediate HALLUCINATI Verified 09/17/24 15:15 ONS prednisone AdvReac Severe high blood Verified 09/17/24 15:15 sugar with high doses aspirin AdvReac Mild Stomach Verified 09/17/24 15:15 pain ibuprofen AdvReac Mild GI UPSET Verified 09/17/24 15:15 pork derived (porcine) AdvReac Mild GI SYMPTOMS Verified 09/17/24 15:15 Pork AdvReac Intermediate GI SYMPTOMS Uncoded 09/17/24 15:15 Home Medications Medication Instructions Recorded Confirmed Type ascorbic acid (vitamin C) 500 mg 500 mg PO DAILY 06/30/19 09/19/24 History tablet calcium 500 mg (as 1 tab PO DAILY 06/30/19 09/19/24 History carbonate)-vitamin D3 5 mcg (200 unit) tablet [id number] 300 mcg-K 60 1 tab PO DAILY 06/30/19 09/19/24 History mcg-lycop 600 mcg-lutein 300 mcg tablet (Centrum Silver Ultra Men's) ferrous sulfate 142 mg (45 mg 142 mg PO .every other day 08/04/20 09/19/24 History iron) tablet,extended release (Slow Fe) levothyroxine 75 mcg tablet 75 mcg PO QAM #90 tabs 04/13/24 09/19/24 Rx peg 3350-sod sulf,jojxy-fof-ajm See Rx Instructions PO .COMPLEX #2 09/09/24 09/19/24 Rx 178.7-7.3-0.5-1.12-0.9 gram oral mL soln (Suflave) sodium chloride 1,000 mg soluble 1,000 mg PO TID #270 tabs 09/10/24 09/19/24 Rx tablet furosemide 20 mg tablet 20 mg PO QPM 09/17/24 09/19/24 History mupirocin 2 % topical ointment 1 applic topical TID PRN Acne 09/17/24 09/19/24 History pantoprazole 40 mg tablet,delayed 40 mg PO QAM 09/17/24 09/19/24 History release prednisone 5 mg tablet 5 mg PO .Q OTHER DAY 09/19/24 09/19/24 History Patient History Medical History Hx of migraines every few months Hx of Clostridium difficile infection (2018) treated Pulmonary nodule monitored Hx of Crohn's disease History of pneumonia (2019) GERD (gastroesophageal reflux disease) Hypothyroidism Arthritis prednisone Hearing loss Hyponatremia sodium chloride tid Anemia (~09/2013) Surgical History History of esophagogastroduodenoscopy (EGD) History of colonoscopy History of tooth extraction History of cataract surgery RT/LEFT History of tonsillectomy and adenoidectomy S/P partial colectomy (1998) due to crohn's History of reversal of ileostomy (1999) History of appendectomy Family History Mother Myocardial infarction Coronary heart disease Aunt Alzheimer disease Uncle Alzheimer disease Bladder cancer Diabetes Grandfather (Maternal) Coronary heart disease Father Dementia Denies family history of Colon cancer Ovarian cancer Prostate cancer Breast cancer Social History Smoking Status: Never smoker Second Hand Exposure: No; Do You Dip or Chew Tobacco: No; Tobacco Cessation Education Requested by Patient: No Hx Alcohol Use: Yes Alcohol type: beer and wine Hx Substance Use: No Preferred Language: Congolese Communication Ability: Effective Visual Impairment: No Limitations Hearing Ability: Normal Registered Respiratory Technician Required: No Beliefs That Will Affect Care: Temple Temple Beliefs: baptism marital status: Current Living Situation: Spouse current occupational status: retired Other Information That Helps Us Care for You: No Feels Safe at Home: Yes Safety Concerns: Feels Safe At This Time Childhood Exposure to Second-Hand Smoke: Yes Dental Care, Regularly: Yes Physical Activity Frequency: 1-2 Times per Week Seatbelt Use: always Sunscreen Use: No Assistive Devices: None Assistive Devices Comment: fixed bridges Review of System A 10 point ROS obtained. Pertinent positives as per HPI Physical Exam Physical Exam: Gen- NAD Neck- Supple HEENT- Anicteric sclera, no oral lesions Lungs- No increased wob Cardiac- RRR Abd- soft , not tender or not distended Ext- R Hand edema with bruising sp IV attempts. Left AC fossa bruising sp IV attempts. No LE edema Skin- No rash Neuro- AAO times 3. No focal defects. Psych- cooperative, normal mood. Results & Data Vital Signs (Past 12 Hours) Vital Signs Temp Pulse Pulse Resp BP Pulse Ox O2 Del Method 09/21/24 11:27 36.5 C 96 H 17 147/66 H 95 Room Air 09/21/24 07:36 80 09/21/24 07:16 36.5 C 96 H 18 147/66 H 95 Room Air 09/21/24 03:00 36.6 C 95 H 18 133/69 Room Air Laboratory Results Laboratory Results - last 48 hr 09/19/24 09/19/24 09/19/24 11:20 12:29 12:31 WBC RBC Hgb POC Hgb 13.9 L Hct POC Hct 41 L MCV MCH MCHC RDW Std Deviation RDW Coeff of Rachel Plt Count MPV Immature Gran % (Auto) Neut % (Auto) Lymph % (Auto) Mcmullen % (Auto) Eos % (Auto) Baso % (Auto) Neut # (Auto) Lymph # (Auto) Mcmullen # (Auto) Eos # (Auto) Baso # (Auto) Immature Gran # (Auto) RBC Morphology Polychromasia POC Sodium 129 L Sodium POC Potassium 4.7 Potassium POC Chloride 94 L Chloride Carbon Dioxide POC Total CO2 24 Anion Gap POC Anion Gap 17.0 POC BUN 14 BUN Creatinine POC Creatinine 1.1 Est Cr Clr Drug Dosing eGFR BUN/Creatinine Ratio Glucose POC Glucose POC Glucose (other) 113 H Osmolality 266 L Calcium POC Ioniz Calcium Donny 1.06 L Total Bilirubin AST ALT Alkaline Phosphatase Total Protein Albumin Globulin Albumin/Globulin Ratio Procalcitonin 0.05 Urine Osmolality Ur Random Sodium Fld Lyme DNA (PCR) Fluid Comment CSF Appearance CSF Color Xanthrochromic CSF WBC CSF RBC CSF Cell Count Tube # CSF Mononuclear % Auto CSF Polynuclear WBCs CSF Chemistry Tube # CSF Glucose CSF Total Protein CSF VDRL CSF C.neoform/gat PCR CSF CMV DNA (PCR) CSF Enterovirus (PCR) CSF E. coli K1 (PCR) CSF H. influenzae (PCR) CSF HSV I (PCR) CSF HSV II (PCR) CSF HHV 6 (PCR) CSF L.monocytogenes PCR CSF N. meningitidis PCR CSF Parechovirus (PCR) CSF S. agalactiae (PCR) CSF S. pneumoniae (PCR) CSF VZV DNA (PCR) Random Vancomycin Lyme Specimen Source Lyme DNA Comment 09/19/24 09/19/24 09/19/24 13:56 19:37 23:07 WBC RBC Hgb POC Hgb Hct POC Hct MCV MCH MCHC RDW Std Deviation RDW Coeff of Rachel Plt Count MPV Immature Gran % (Auto) Neut % (Auto) Lymph % (Auto) Mcmullen % (Auto) Eos % (Auto) Baso % (Auto) Neut # (Auto) Lymph # (Auto) Mcmullen # (Auto) Eos # (Auto) Baso # (Auto) Immature Gran # (Auto) RBC Morphology Polychromasia POC Sodium Sodium 126 L POC Potassium Potassium 4.0 POC Chloride Chloride 98 Carbon Dioxide 23 POC Total CO2 Anion Gap 5 POC Anion Gap POC BUN BUN 11 Creatinine 0.82 POC Creatinine Est Cr Clr Drug Dosing 85.0 eGFR 95.09 BUN/Creatinine Ratio 13.4 Glucose 110 H POC Glucose 209 H POC Glucose (other) Osmolality Calcium 8.2 L POC Ioniz Calcium Donny Total Bilirubin AST ALT Alkaline Phosphatase Total Protein Albumin Globulin Albumin/Globulin Ratio Procalcitonin Urine Osmolality Ur Random Sodium Fld Lyme DNA (PCR) Cancelled Fluid Comment CSF Appearance Clear CSF Color Colorless Xanthrochromic No xanthochromia CSF WBC 339 H* CSF RBC 0 CSF Cell Count Tube # 3 CSF Mononuclear % Auto 13.0 CSF Polynuclear WBCs 87.0 CSF Chemistry Tube # 1 CSF Glucose 45 CSF Total Protein 84.3 H CSF VDRL Cancelled CSF C.neoform/gat PCR Not Detected CSF CMV DNA (PCR) Not Detected CSF Enterovirus (PCR) Not Detected CSF E. coli K1 (PCR) Not Detected CSF H. influenzae (PCR) Not Detected CSF HSV I (PCR) Not Detected CSF HSV II (PCR) Not Detected CSF HHV 6 (PCR) Not Detected CSF L.monocytogenes PCR Not Detected CSF N. meningitidis PCR Not Detected CSF Parechovirus (PCR) Not Detected CSF S. agalactiae (PCR) Not Detected CSF S. pneumoniae (PCR) Not Detected CSF VZV DNA (PCR) Not Detected Random Vancomycin Lyme Specimen Source Cancelled Lyme DNA Comment Cancelled 09/19/24 09/19/24 09/20/24 23:11 Unknown 05:09 WBC 7.70 RBC 4.41 L Hgb 13.1 L POC Hgb Hct 35.5 L POC Hct MCV 80.5 MCH 29.7 MCHC 36.9 H RDW Std Deviation 34.7 L RDW Coeff of Rachel 11.8 Plt Count 211 MPV 9.4 Immature Gran % (Auto) 0.3 Neut % (Auto) 91.3 Lymph % (Auto) 6.6 Mcmullen % (Auto) 1.8 Eos % (Auto) 0.0 Baso % (Auto) 0.0 Neut # (Auto) 7.03 H Lymph # (Auto) 0.51 L Mcmullen # (Auto) 0.14 Eos # (Auto) 0.00 Baso # (Auto) 0.00 Immature Gran # (Auto) 0.02 RBC Morphology Unremarkable Polychromasia POC Sodium Sodium 124 L 124 L POC Potassium Potassium 4.0 TNP POC Chloride Chloride 93 L 93 L Carbon Dioxide 23 24 POC Total CO2 Anion Gap 8 7 POC Anion Gap POC BUN BUN 12 12 Creatinine 1.00 0.92 POC Creatinine Est Cr Clr Drug Dosing 69.7 75.8 eGFR 81.47 90.05 BUN/Creatinine Ratio 12.0 13.0 Glucose 215 H 150 H POC Glucose POC Glucose (other) Osmolality Calcium 8.5 L 8.8 POC Ioniz Calcium Donny Total Bilirubin 1.5 H AST TNP ALT 15 Alkaline Phosphatase 48 Total Protein 7.4 Albumin 4.0 Globulin 3.4 Albumin/Globulin Ratio 1.2 Procalcitonin Urine Osmolality 747 Ur Random Sodium 87 Fld Lyme DNA (PCR) Fluid Comment CSF Appearance CSF Color Xanthrochromic CSF WBC CSF RBC CSF Cell Count Tube # CSF Mononuclear % Auto CSF Polynuclear WBCs CSF Chemistry Tube # CSF Glucose CSF Total Protein CSF VDRL CSF C.neoform/gat PCR CSF CMV DNA (PCR) CSF Enterovirus (PCR) CSF E. coli K1 (PCR) CSF H. influenzae (PCR) CSF HSV I (PCR) CSF HSV II (PCR) CSF HHV 6 (PCR) CSF L.monocytogenes PCR CSF N. meningitidis PCR CSF Parechovirus (PCR) CSF S. agalactiae (PCR) CSF S. pneumoniae (PCR) CSF VZV DNA (PCR) Random Vancomycin Lyme Specimen Source Lyme DNA Comment 09/20/24 09/20/24 09/20/24 09:30 12:26 15:14 WBC RBC Hgb POC Hgb Hct POC Hct MCV MCH MCHC RDW Std Deviation RDW Coeff of Rachel Plt Count MPV Immature Gran % (Auto) Neut % (Auto) Lymph % (Auto) Mcmullen % (Auto) Eos % (Auto) Baso % (Auto) Neut # (Auto) Lymph # (Auto) Mcmullen # (Auto) Eos # (Auto) Baso # (Auto) Immature Gran # (Auto) RBC Morphology Polychromasia POC Sodium Sodium 127 L 127 L 129 L POC Potassium Potassium 3.9 4.5 3.9 POC Chloride Chloride 97 L 96 L 99 Carbon Dioxide 20 L 23 21 POC Total CO2 Anion Gap 10 8 9 POC Anion Gap POC BUN BUN 11 12 14 Creatinine 0.89 0.97 1.11 POC Creatinine Est Cr Clr Drug Dosing 78.3 71.9 62.8 eGFR 92.76 84.50 71.88 BUN/Creatinine Ratio 12.4 12.4 12.6 Glucose 200 H 170 H 181 H POC Glucose POC Glucose (other) Osmolality Calcium 8.9 8.9 8.9 POC Ioniz Calcium Donny Total Bilirubin AST ALT Alkaline Phosphatase Total Protein Albumin Globulin Albumin/Globulin Ratio Procalcitonin Urine Osmolality Ur Random Sodium Fld Lyme DNA (PCR) Fluid Comment CSF Appearance CSF Color Xanthrochromic CSF WBC CSF RBC CSF Cell Count Tube # CSF Mononuclear % Auto CSF Polynuclear WBCs CSF Chemistry Tube # CSF Glucose CSF Total Protein CSF VDRL CSF C.neoform/gat PCR CSF CMV DNA (PCR) CSF Enterovirus (PCR) CSF E. coli K1 (PCR) CSF H. influenzae (PCR) CSF HSV I (PCR) CSF HSV II (PCR) CSF HHV 6 (PCR) CSF L.monocytogenes PCR CSF N. meningitidis PCR CSF Parechovirus (PCR) CSF S. agalactiae (PCR) CSF S. pneumoniae (PCR) CSF VZV DNA (PCR) Random Vancomycin Lyme Specimen Source Lyme DNA Comment 09/20/24 09/20/24 09/20/24 17:46 20:55 Unknown WBC RBC Hgb POC Hgb Hct POC Hct MCV MCH MCHC RDW Std Deviation RDW Coeff of Rachel Plt Count MPV Immature Gran % (Auto) Neut % (Auto) Lymph % (Auto) Mcmullen % (Auto) Eos % (Auto) Baso % (Auto) Neut # (Auto) Lymph # (Auto) Mcmullen # (Auto) Eos # (Auto) Baso # (Auto) Immature Gran # (Auto) RBC Morphology Polychromasia POC Sodium Sodium 127 L 131 L POC Potassium Potassium 4.4 3.7 POC Chloride Chloride 98 100 Carbon Dioxide 22 21 POC Total CO2 Anion Gap 7 10 POC Anion Gap POC BUN BUN 16 17 Creatinine 1.25 1.21 POC Creatinine Est Cr Clr Drug Dosing 55.8 57.6 eGFR 62.33 64.81 BUN/Creatinine Ratio 12.8 14.0 Glucose 221 H 153 H POC Glucose POC Glucose (other) Osmolality Calcium 8.9 9.1 POC Ioniz Calcium Donny Total Bilirubin AST ALT Alkaline Phosphatase Total Protein Albumin Globulin Albumin/Globulin Ratio Procalcitonin Urine Osmolality 273 L Ur Random Sodium Fld Lyme DNA (PCR) Fluid Comment CSF Appearance CSF Color Xanthrochromic CSF WBC CSF RBC CSF Cell Count Tube # CSF Mononuclear % Auto CSF Polynuclear WBCs CSF Chemistry Tube # CSF Glucose CSF Total Protein CSF VDRL CSF C.neoform/gat PCR CSF CMV DNA (PCR) CSF Enterovirus (PCR) CSF E. coli K1 (PCR) CSF H. influenzae (PCR) CSF HSV I (PCR) CSF HSV II (PCR) CSF HHV 6 (PCR) CSF L.monocytogenes PCR CSF N. meningitidis PCR CSF Parechovirus (PCR) CSF S. agalactiae (PCR) CSF S. pneumoniae (PCR) CSF VZV DNA (PCR) Random Vancomycin Lyme Specimen Source Lyme DNA Comment 09/21/24 08:18 WBC 22.15 H RBC 4.16 L Hgb 12.3 L POC Hgb Hct 33.7 L POC Hct MCV 81.0 MCH 29.6 MCHC 36.5 H RDW Std Deviation 36.4 RDW Coeff of Rachel 12.5 Plt Count 238 MPV 9.2 L Immature Gran % (Auto) 0.8 Neut % (Auto) 93.0 Lymph % (Auto) 2.6 Mcmullen % (Auto) 3.5 Eos % (Auto) 0.0 Baso % (Auto) 0.1 Neut # (Auto) 20.60 H Lymph # (Auto) 0.57 L Mcmullen # (Auto) 0.78 H Eos # (Auto) 0.00 Baso # (Auto) 0.03 Immature Gran # (Auto) 0.17 RBC Morphology Polychromasia 1+ POC Sodium Sodium 135 L POC Potassium Potassium 3.5 POC Chloride Chloride 102 Carbon Dioxide 23 POC Total CO2 Anion Gap 10 POC Anion Gap POC BUN BUN 19 Creatinine 0.93 POC Creatinine Est Cr Clr Drug Dosing 75.0 eGFR 88.89 BUN/Creatinine Ratio 20.4 H Glucose 146 H POC Glucose POC Glucose (other) Osmolality Calcium 9.2 POC Ioniz Calcium Donny Total Bilirubin 0.7 D AST 58 H ALT 22 Alkaline Phosphatase 45 Total Protein 7.2 Albumin 4.1 Globulin 3.1 Albumin/Globulin Ratio 1.3 Procalcitonin Urine Osmolality Ur Random Sodium Fld Lyme DNA (PCR) Fluid Comment CSF Appearance CSF Color Xanthrochromic CSF WBC CSF RBC CSF Cell Count Tube # CSF Mononuclear % Auto CSF Polynuclear WBCs CSF Chemistry Tube # CSF Glucose CSF Total Protein CSF VDRL CSF C.neoform/gat PCR CSF CMV DNA (PCR) CSF Enterovirus (PCR) CSF E. coli K1 (PCR) CSF H. influenzae (PCR) CSF HSV I (PCR) CSF HSV II (PCR) CSF HHV 6 (PCR) CSF L.monocytogenes PCR CSF N. meningitidis PCR CSF Parechovirus (PCR) CSF S. agalactiae (PCR) CSF S. pneumoniae (PCR) CSF VZV DNA (PCR) Random Vancomycin 4.4 L Lyme Specimen Source Lyme DNA Comment Diagnostic Findings Microbiology 09/19/24 11:23 Blood Aerobic Blood Culture - Preliminary No growth in Aerobic bottle after 48 hours. 09/19/24 11:23 Blood Anaerobic Blood Culture - Preliminary No growth in Anaerobic bottle after 48 hours. 09/19/24 13:56 Cerebral Spinal Fluid Gram Stain - Final 09/19/24 13:56 Cerebral Spinal Fluid CSF Culture - Final No growth 09/19/24 12:04 Blood Aerobic Blood Culture - Preliminary No growth in Aerobic bottle after 24 hours. 09/19/24 12:04 Blood Anaerobic Blood Culture - Final 09/19/24 13:56 Cerebral Spinal Fluid Acid Fast Bacilli Smear - Final Chest X-Ray 09/19/24 11:13 SINGLE VIEW CHEST CLINICAL HISTORY: Sepsis.. FINDINGS: An AP, portable, upright chest radiograph is compared to study dated 12/05/2022 and correlated with chest CT dated 02/07/2018. The cardiomediastinal silhouette is unremarkable noting atherosclerotic calcification of the thoracic aorta. Chronic interstitial thickening is similar to previous. There is bibasilar scarring/atelectasis. No airspace consolidation or large pleural effusion is identified. There is no pneumothorax. The skeletal structures appear osteopenic. The bony thorax is grossly intact. Arthritic change is seen in the shoulders. IMPRESSION: No active disease in the chest. ACT 112: Negative or not required by law. Electronically signed by: Donald Lewis M.D. 09/19/2024 1:[address] 09/19/24 11:[address] OF THE BRAIN; CT ANGIOGRAM OF THE BRAIN; CT ANGIOGRAM OF THE NECK CLINICAL HISTORY: Change in mental status. COMPARISON STUDY: CT of the brain dated 01/08/2019 TECHNIQUE: Unenhanced axial CT scan of the brain is performed. Subsequently, following the IV administration of 112 of Optiray 320, CT angiogram of the head and neck was performed from the aortic arch to the vertex. Images are reviewed in the axial, sagittal, and coronal planes. 3-D MIPS images are created and assessed. IV contrast was administered without complication. All measurements were calculated based on NASCET criteria. A dose lowering technique was utilized adhering to the principles of ALARA. CT DOSE: 1349.92 mGy.cm FINDINGS: Brain parenchyma: There is age-related involutional change noted minimal microangiopathic disease. There is no hemorrhage, mass effect, or evidence of acute territorial ischemia by CT criteria. There is no evidence of enhancing mass lesion on the angiogram phase images. The ventricles, sulci, and cisterns are prominent secondary to involutional change. Ramirez-white matter differentiation is preserved. No extra-axial fluid collection is seen. Thoracic aorta: Visualized portions of the thoracic aorta are normal in caliber. The aortic arch demonstrates standard 3-vessel anatomy. Right carotid arterial system: The right common carotid artery is widely patent. There is atherosclerotic plaque in the carotid bulb which causes approximately 50% focal stenosis of the origin of the right internal carotid artery as seen on image #230. The remainder of the internal and external carotid arteries are patent. Left carotid arterial system: The left common carotid artery is widely patent, as are the left internal and external carotid arteries. Calcified plaque is seen in the carotid bulb. Vertebral arteries: The vertebral arteries are patent bilaterally noted left- sided dominance. Subclavian arteries: Widely patent bilaterally. Intracranial vasculature: There is atherosclerotic calcification of the cavernous carotid arteries. The internal carotid arteries are patent at the skull base, as are the anterior and middle cerebral arteries bilaterally. The vertebrobasilar system and posterior cerebral arteries are widely patent. The left vertebral artery is dominant. The right vertebral artery is diminutive and largely terminates as the PICA. There is no aneurysm, high-grade stenosis, or focal vessel cut off seen throughout the intracranial circulation. Jugular veins: Patent bilaterally. Dural sinuses: Patent. Lung apices: Partially visualized upper lobe lung parenchyma appears clear. Soft tissues: The visualized pharyngeal soft tissues are normal in appearance noting angiographic phase technique. The oropharyngeal airway appears widely patent. The thyroid gland is atrophic. The salivary glands are normal in appearance. No cervical lymphadenopathy is seen. Skeletal structures: The skeletal structures are osteopenic. The calvarium appears intact. The cervical spine is maintained noting mild multilevel spondylosis. Orbits: The bony orbits are intact. Orbital contents are normal as visualized noting bilateral ocular lens implants. Sinuses and mastoids: The paranasal sinuses are clear. The mastoid air cells are well pneumatized. IMPRESSION: 1. There is no hemorrhage, mass effect, or evidence of acute territorial ischemia by CT criteria. 2. Unremarkable CT angiogram of the brain. 3. There is approximately 50% focal stenosis at the origin of the right internal carotid artery. 4. Otherwise unremarkable CT angiogram of the neck. ACT 112: Negative or not required by law. Electronically signed by: Donald Lewis M.D. 09/19/2024 11:40 AM Head CTA 09/19/24 11:[address] OF THE BRAIN; CT ANGIOGRAM OF THE BRAIN; CT ANGIOGRAM OF THE NECK CLINICAL HISTORY: Change in mental status. COMPARISON STUDY: CT of the brain dated 01/08/2019 TECHNIQUE: Unenhanced axial CT scan of the brain is performed. Subsequently, following the IV administration of 112 of Optiray 320, CT angiogram of the head and neck was performed from the aortic arch to the vertex. Images are reviewed in the axial, sagittal, and coronal planes. 3-D MIPS images are created and assessed. IV contrast was administered without complication. All measurements were calculated based on NASCET criteria. A dose lowering technique was utilized adhering to the principles of ALARA. CT DOSE: 1349.92 mGy.cm FINDINGS: Brain parenchyma: There is age-related involutional change noted minimal microangiopathic disease. There is no hemorrhage, mass effect, or evidence of acute territorial ischemia by CT criteria. There is no evidence of enhancing mass lesion on the angiogram phase images. The ventricles, sulci, and cisterns are prominent secondary to involutional change. Ramriez-white matter differentiation is preserved. No extra-axial fluid collection is seen. Thoracic aorta: Visualized portions of the thoracic aorta are normal in caliber. The aortic arch demonstrates standard 3-vessel anatomy. Right carotid arterial system: The right common carotid artery is widely patent. There is atherosclerotic plaque in the carotid bulb which causes approximately 50% focal stenosis of the origin of the right internal carotid artery as seen on image #230. The remainder of the internal and external carotid arteries are patent. Left carotid arterial system: The left common carotid artery is widely patent, as are the left internal and external carotid arteries. Calcified plaque is seen in the carotid bulb. Vertebral arteries: The vertebral arteries are patent bilaterally noted left- sided dominance. Subclavian arteries: Widely patent bilaterally. Intracranial vasculature: There is atherosclerotic calcification of the cavernous carotid arteries. The internal carotid arteries are patent at the skull base, as are the anterior and middle cerebral arteries bilaterally. The vertebrobasilar system and posterior cerebral arteries are widely patent. The left vertebral artery is dominant. The right vertebral artery is diminutive and largely terminates as the PICA. There is no aneurysm, high-grade stenosis, or focal vessel cut off seen throughout the intracranial circulation. Jugular veins: Patent bilaterally. Dural sinuses: Patent. Lung apices: Partially visualized upper lobe lung parenchyma appears clear. Soft tissues: The visualized pharyngeal soft tissues are normal in appearance noting angiographic phase technique. The oropharyngeal airway appears widely patent. The thyroid gland is atrophic. The salivary glands are normal in appearance. No cervical lymphadenopathy is seen. Skeletal structures: The skeletal structures are osteopenic. The calvarium appears intact. The cervical spine is maintained noting mild multilevel spondylosis. Orbits: The bony orbits are intact. Orbital contents are normal as visualized noting bilateral ocular lens implants. Sinuses and mastoids: The paranasal sinuses are clear. The mastoid air cells are well pneumatized. IMPRESSION: 1. There is no hemorrhage, mass effect, or evidence of acute territorial ischemia by CT criteria. 2. Unremarkable CT angiogram of the brain. 3. There is approximately 50% focal stenosis at the origin of the right internal carotid artery. 4. Otherwise unremarkable CT angiogram of the neck. ACT 112: Negative or not required by law. Electronically signed by: Donald Lewis M.D. 09/19/2024 11:40 AM Neck CTA 09/19/24 11:[address] OF THE BRAIN; CT ANGIOGRAM OF THE BRAIN; CT ANGIOGRAM OF THE NECK CLINICAL HISTORY: Change in mental status. COMPARISON STUDY: CT of the brain dated 01/08/2019 TECHNIQUE: Unenhanced axial CT scan of the brain is performed. Subsequently, following the IV administration of 112 of Optiray 320, CT angiogram of the head and neck was performed from the aortic arch to the vertex. Images are reviewed in the axial, sagittal, and coronal planes. 3-D MIPS images are created and assessed. IV contrast was administered without complication. All measurements were calculated based on NASCET criteria. A dose lowering technique was utilized adhering to the principles of ALARA. CT DOSE: 1349.92 mGy.cm FINDINGS: Brain parenchyma: There is age-related involutional change noted minimal microangiopathic disease. There is no hemorrhage, mass effect, or evidence of acute territorial ischemia by CT criteria. There is no evidence of enhancing mass lesion on the angiogram phase images. The ventricles, sulci, and cisterns are prominent secondary to involutional change. Ramirez-white matter differentiation is preserved. No extra-axial fluid collection is seen. Thoracic aorta: Visualized portions of the thoracic aorta are normal in caliber. The aortic arch demonstrates standard 3-vessel anatomy. Right carotid arterial system: The right common carotid artery is widely patent. There is atherosclerotic plaque in the carotid bulb which causes approximately 50% focal stenosis of the origin of the right internal carotid artery as seen on image #230. The remainder of the internal and external carotid arteries are patent. Left carotid arterial system: The left common carotid artery is widely patent, as are the left internal and external carotid arteries. Calcified plaque is seen in the carotid bulb. Vertebral arteries: The vertebral arteries are patent bilaterally noted left- sided dominance. Subclavian arteries: Widely patent bilaterally. Intracranial vasculature: There is atherosclerotic calcification of the cavernous carotid arteries. The internal carotid arteries are patent at the skull base, as are the anterior and middle cerebral arteries bilaterally. The vertebrobasilar system and posterior cerebral arteries are widely patent. The left vertebral artery is dominant. The right vertebral artery is diminutive and largely terminates as the PICA. There is no aneurysm, high-grade stenosis, or focal vessel cut off seen throughout the intracranial circulation. Jugular veins: Patent bilaterally. Dural sinuses: Patent. Lung apices: Partially visualized upper lobe lung parenchyma appears clear. Soft tissues: The visualized pharyngeal soft tissues are normal in appearance noting angiographic phase technique. The oropharyngeal airway appears widely patent. The thyroid gland is atrophic. The salivary glands are normal in appearance. No cervical lymphadenopathy is seen. Skeletal structures: The skeletal structures are osteopenic. The calvarium appears intact. The cervical spine is maintained noting mild multilevel spondylosis. Orbits: The bony orbits are intact. Orbital contents are normal as visualized noting bilateral ocular lens implants. Sinuses and mastoids: The paranasal sinuses are clear. The mastoid air cells are well pneumatized. IMPRESSION: 1. There is no hemorrhage, mass effect, or evidence of acute territorial ischemia by CT criteria. 2. Unremarkable CT angiogram of the brain. 3. There is approximately 50% focal stenosis at the origin of the right internal carotid artery. 4. Otherwise unremarkable CT angiogram of the neck. ACT 112: Negative or not required by law. Electronically signed by: Donald Lewis M.D. 09/19/2024 11:40 AM Brain MRI 09/19/24 18:18 MRI OF THE BRAIN COMBO CLINICAL HISTORY: Encephalitis. Strokelike symptoms. Change in mental status. COMPARISON STUDY: CT of the brain dated 09/19/2024. TECHNIQUE: MRI of the brain was performed utilizing various T1 and T2-weighted sequences in the axial, sagittal, and coronal planes. Contrast-enhanced sequences were acquired following the administration of 7 cc of Gadavist. FINDINGS: Brain parenchyma: There is age-related involutional change noting minimal microangiopathic disease. A developmental venous anomaly is incidentally noted in the left frontal lobe. There is no hemorrhage or mass effect. There is no restricted diffusion to suggest acute ischemia. No enhancing mass lesion is identified on the postcontrast images. Ramirez-white matter differentiation is preserved. No extra-axial fluid collection is seen. The cerebellar tonsils are normal in configuration. Ventricles, sulci, and cisterns: Prominent secondary to involutional change. Pituitary and sella: Unremarkable. Intracranial vasculature: Normal flow voids are maintained at the skull base. Orbits: The bony orbits are grossly intact. Orbital contents are normal in appearance noting bilateral ocular lens implants. Sinuses and mastoids: Clear. Calvarium: Unremarkable. Cervical cord: Partially visualized cervical spinal cord is normal in morphology and signal intensity. IMPRESSION: No acute intracranial abnormality. ACT 112: Negative or not required by law. Electronically signed by: Donald Lewis M.D. 09/20/2024 12:11 PM Medications Administered Home Medications Medication Instructions Recorded Confirmed Last Taken ascorbic acid (vitamin C) 500 mg 500 mg PO DAILY 06/30/19 09/19/24 08/09/20 tablet calcium 500 mg (as 1 tab PO DAILY 06/30/19 09/19/24 08/09/20 carbonate)-vitamin D3 5 mcg (200 unit) tablet [id number] 300 mcg-K 60 1 tab PO DAILY 06/30/19 09/19/24 08/09/20 mcg-lycop 600 mcg-lutein 300 mcg tablet (Centrum Silver Ultra Men's) ferrous sulfate 142 mg (45 mg 142 mg PO .every other day 08/04/20 09/19/24 08/09/20 iron) tablet,extended release (Slow Fe) levothyroxine 75 mcg tablet 75 mcg PO QAM #90 tabs 04/13/24 09/19/24 Unknown peg 3350-sod sulf,[id number]-qrb-agz See Rx Instructions PO .COMPLEX #2 09/09/24 09/19/24 Unknown 178.7-7.3-0.5-1.12-0.9 gram oral mL soln (Suflave) sodium chloride 1,000 mg soluble 1,000 mg PO TID #270 tabs 09/10/24 09/19/24 Unknown tablet furosemide 20 mg tablet 20 mg PO QPM 09/17/24 09/19/24 Unknown mupirocin 2 % topical ointment 1 applic topical TID PRN Acne 09/17/24 09/19/24 Unknown pantoprazole 40 mg tablet,delayed 40 mg PO QAM 09/17/24 09/19/24 Unknown release prednisone 5 mg tablet 5 mg PO .Q OTHER DAY 09/19/24 09/19/24 Unknown Active Medications Generic Name Dose Route Start Last Admin Trade Name Freq PRN Reason Stop Dose Admin Calcium Carbonate 500 mg 09/20/24 22:11 09/20/24 22:18 Calcium Carbonate 500 Mg Chewable Tab PO 10/20/24 22:10 500 mg Q4H PRN Administration Indigestion Enoxaparin Sodium 40 mg 09/19/24 21:00 09/20/24 20:35 Enoxaparin Inj 40 Mg/0.4 Ml Syr SQ 10/19/24 20:59 40 mg Q24H BITA Administration Furosemide 20 mg 09/19/24 21:00 09/20/24 20:35 Furosemide 20 Mg Tab PO 10/19/24 20:59 20 mg QPM BITA Administration Ceftriaxone Sodium 2,000 mg in 50 mls @ 100 mls/hr 09/20/24 00:00 09/21/24 11:52 Rocephin IV 09/30/24 00:00 100 mls/hr Q12H BITA Administration Acetaminophen 1,000 mg in 100 mls @ 400 mls/hr 09/19/24 20:00 09/20/24 13:28 Ofirmev IV 09/22/24 19:59 Infused Q8H PRN Infusion Fever/Mild Pain (Pain 1,2,3) Acyclovir Sodium 780 mg/ 265.6 mls @ 250 mls/hr 09/19/24 23:00 09/21/24 10:49 Dextrose IV 09/29/24 14:59 Infused Q8H BITA Infusion Protocol Dexamethasone 10 mg/ Syringe 2.5 mls @ 1 mls/min 09/20/24 00:00 09/21/24 11:52 IV 10/20/24 00:00 1 mls/min Q6H BITA Administration Ampicillin Sodium 2,000 mg/ 100 mls @ 200 mls/hr 09/19/24 17:30 09/21/24 10:26 Sodium Chloride IV 09/29/24 17:29 Infused Q4H BITA Infusion Levothyroxine Sodium 75 mcg 09/20/24 06:30 09/21/24 06:16 Levothyroxine Sodium 75 Mcg Tablet PO 10/20/24 06:29 75 mcg DAILYBB BITA Administration Pantoprazole Sodium 40 mg 09/20/24 09:00 09/21/24 09:44 Pantoprazole 40 Mg Tab PO 10/20/24 08:59 40 mg QAM BITA Administration Sodium Chloride 1 gm 09/19/24 21:00 09/21/24 09:44 Sodium Chloride 1 Gm Tablet PO 10/19/24 20:59 1 gm TID BITA Administration
[2024-09-21] MEDS ORDERED: MELATONIN 3 MG TAB PO PRN (16:41)
[2024-09-22 02:56] VITALS: RESP 18
[2024-09-22 07:14] VITALS: BP 147/73; TEMP 97.9; O2SAT 99
[2024-09-22 07:20] VITALS: PULSE 75
[2024-09-22 08:25] LABS: Hematocrit (blood only) 32.8 % (42.0-52.0); Hemoglobin 11.6 g/dl (14.0-18.0); Mean Corpuscular Hemoglobin 29.7 pg (25.0-34.0); Mean Corpuscular Hgb Conc 35.4 g/dL (32.0-36.0); Mean Corpuscular Volume 84.1 fL (80.0-100.0); Mean Platelet Volume 9.5 fL (9.4-12.4); Platelet Count 221 K/uL (130-400); RDW Coefficient of Variation 13.1 % (11.5-14.5); RDW Standard Deviation 39.5 fL (36.4-46.3)
[2024-09-22 08:47] LABS: Basophils # (auto) 0.01 K/uL (0.00-0.20); Basophils % (auto) 0.1 %; Immature Granulocytes # (auto) 0.14 K/uL (0.01-0.20); Immature Granulocytes % (auto) 0.9 %; Lymphocytes % (auto) 3.2 %; Monocytes # (auto) 0.49 K/uL (0.11-0.59); Monocytes % (auto) 3.2 %; Neutrophils # (auto) 14.26 K/uL (1.40-6.50); Neutrophils % (auto) 92.6 %; RBC Morphology Unremarkable
[2024-09-22 08:54] LABS: Albumin Globulin Ratio 1.4 (0.9-2); Albumin Level 3.7 gm/dl (3.4-5.0); BUN Creatinine Ratio 18.9 (10-20); Bilirubin,Total 0.6 mg/dl (0.2-1.0); Calcium 8.8 mg/dl (8.6-10.3); Creatinine Clr Calc Pharmacy 73.4 ml/min; Globulin 2.7 gm/dl (2.5-4.0); Potassium 3.9 mmol/L (3.5-5.1); Total Protein 6.4 gm/dl (6.0-8.3)
[2024-09-22] MEDS: FUROSEMIDE 20 MG TAB PO SCH (08:59)
--- NOTE | 2024-09-22 09:03 | Nephrology Progress Note ---
Date of Service September 22, 2024 Assessment & Plan (1) Hyponatremia: Plan: * Patient has a longstanding history of SIADH managed with free water restriction, NaCl tablets and loop diuretic * Acute exacerbation of hyponatremia likely related to meningitis * Serum Na has corrected. Mental status is back to baseline * Continue outpatient regimen of NaCl 1 g TID, furosemide 20 mg qAM and 1500 cc/day free water fluid restriction * I have sent task to my agricultural extension officer to schedule nephrology follow up visit in 7- 10 days and entered orders for nonfasting blood work to be completed 2 days prior to visit (2) Altered mental status: Plan: * Likely related to meningitis. CSF leukocytosis noted * Blood and CSF cultures are negative. Possible viral meningitis * Antibiotics as per ID service loss control consultant (3) Meningitis: Admission and Anticipated Discharge Date Admission Date: September 19, 2024 Subjective Mr. Huitron was evaluated in his hospital room this morning. He was A&O x3, sitting up in bed. His HERNANDEZ has resolved. He hopes to return home soon Review of Systems Constitutional: no fever Eyes: no problem reported Ear, Nose, Mouth, Throat: no problem reported Respiratory: no cough and no dyspnea Cardiovascular: no chest pain Gastrointestinal: no abdominal pain, no nausea, no vomiting and no diarrhea/loose stools Genitourinary: no dysuria or no hematuria Integumentary: no rash Neurologic: no headache(s) Physical Exam Constitutional: not in distress Eyes: PERRL, conjunctivae normal, anicteric sclerae ENMT: external ear and nose normal, oropharynx normal Neck: trachea midline, no thyromegaly Respiratory: normal respiratory effort, lungs clear to auscultation Cardiovascular: RRR, no murmur, no edema Gastrointestinal (Abdomen): normal bowel sounds, soft, nontender, no hepatosplenomegaly Skin: no rashes, warm and dry Results & Data Vital Signs (Past 12 Hours) Vital Signs Temp Pulse Pulse Resp BP BP Pulse Ox 09/22/24 07:20 75 09/22/24 07:14 36.6 C 71 18 147/73 H 99 09/22/24 02:55 37.0 C 69 18 148/72 H 95 09/21/24 23:25 37.0 C 93 H 17 137/66 98 09/21/24 21:58 94 H O2 Del Method 09/22/24 07:20 09/22/24 07:14 Room Air 09/22/24 02:55 Room Air 09/21/24 23:25 Room Air 09/21/24 21:58 Laboratory Results Laboratory Results - last 24 hr 09/21/24 09/21/24 09/22/24 08:18 17:58 07:14 WBC 22.15 H 15.40 H RBC 4.16 L 3.90 L Hgb 12.3 L 11.6 L Hct 33.7 L 32.8 L MCV 81.0 84.1 MCH 29.6 29.7 MCHC 36.5 H 35.4 RDW Std Deviation 36.4 39.5 RDW Coeff of Rachel 12.5 13.1 Plt Count 238 221 MPV 9.2 L 9.5 Immature Gran % (Auto) 0.8 0.9 Neut % (Auto) 93.0 92.6 Lymph % (Auto) 2.6 3.2 [place] % (Auto) 3.5 3.2 Eos % (Auto) 0.0 0.0 Baso % (Auto) 0.1 0.1 Neut # (Auto) 20.60 H 14.26 H Lymph # (Auto) 0.57 L 0.50 L [place] # (Auto) 0.78 H 0.49 Eos # (Auto) 0.00 0.00 Baso # (Auto) 0.03 0.01 Immature Gran # (Auto) 0.17 0.14 RBC Morphology Unremarkable Polychromasia 1+ Sodium 135 L 139 Potassium 3.5 3.9 Chloride 102 107 Carbon Dioxide 23 23 Anion Gap 10 9 BUN 19 18 Creatinine 0.93 0.95 Est Cr Clr Drug Dosing 75.0 73.4 eGFR 88.89 86.64 BUN/Creatinine Ratio 20.4 H 18.9 Glucose 146 H 140 H Calcium 9.2 8.8 Total Bilirubin 0.7 D 0.6 AST 58 H 87 H ALT 22 41 Alkaline Phosphatase 45 39 Total Protein 7.2 6.4 Albumin 4.1 3.7 Globulin 3.1 2.7 Albumin/Globulin Ratio 1.3 1.4 Random Vancomycin 4.4 L Treponema pallidum Ab Pending PG Care Time/CCT Total # of Minutes Spent Total Time Spent with Patient: Total time spent is greater than 50% in coordination of care (as documented) at patient's floor/unit and/or counseling patient: Coding Level of Care Code 65985 SUB INP/OBS CARE 50MIN Diagnoses Hyponatremia E87.1 Altered mental status R41.82 Meningitis G03.9
--- NOTE | 2024-09-22 10:33 | Discharge Summary ---
Date of Service September 22, 2024 Admission HPI Per Admitting Provider Ha is a 69-year-old male with PMH of GERD, esophageal stenosis, Crohn's ileitis, hypothyroidism, dyslipidemia, and anxiety. He presented on 09/19 for acute onset of fever (105 F), confusion, vomiting, and headache. Patient is altered and unable to provide a history at the time of admission. Patient's (Rafia) is present at the bedside and provides history. She reports that he began to have a migraine headache yesterday around 1 PM. He does have a history of migraine headaches, and she reports that he did see "dancing lights" in his usual aura. He went to lie down and took Excedrin x 2. reports that he was "down and out" most of the day yesterday. He did not eat much for dinner. He also did not take his usual Lasix last night; did take his sodium tablet. Then, overnight, he kept complaining that his head hurt, and went to the bathroom several times to vomit. woke up around 8:45 AM, and patient was very confused. She took his temperature, and reports that it was 104.9 F. He was also not answering questions correctly. For instance, asked, "where does it hurt?", And he responded "yes". He was giving very vague answers, and when handed him Gatorade with the lid off, he tried to take the lid off repeatedly even though it was already off. Patient's gave him 2 Tylenol, but upon recheck his temperature was still around 105 F, and she drove him to the ED. Stroke alert was called in the ED. denies any history of stroke, or facial droop, slurred speech, unilateral deficits today. No history of seizures. She did note that his gait was slightly off balance, and he had trouble putting his socks on this morning. In regard to his migraines, he had 1 recently that was mild, then had a big 1 in June that involved low-grade fever and vomiting x 1. He does have a prodrome of flashing lights prior to migraines. However, reports that he has never had significant confusion or fever up to 105 degrees with prior migraines. No sick contacts, however patient has been visiting [facility] to help with 's father in the hospital, and may have been exposed to certain germs. also reports that he had a cold last week, and had fatigue and congestion. He does have a history of thyroid issues and low sodium. No history of herpes, varicella, or shingles. While did not notice any rashes, [place] and has been exposed to ticks in the past. believes he is up-to-date on immunizations, but notes that he did get very sick after having a flu shot several years ago. No recent dental cleanings, but he did complain about his teeth hurting last week. Patient takes prednisone 2.5 mg every other day due to his ankylosing spondylolysis, and occasional difficulties with walk ing. Patient is febrile at 37.8 C at the time of admission; vitals otherwise stable. ED course: Rocephin 2000 mg IV Vancomycin 1500 mg IV Unasyn 3000 mg IV Acyclovir 780 mg IV Acetaminophen 1000 mg IV Lorazepam 1 mg IV Morphine sulfate 4 mg IV Zofran 4 mg NSS 1000 mL at 125 mL/hr x 1 L Unable to obtain ROS from patient at this time However, confirms altered mental status, vomiting, fever, and confusion. Admission Exam (Per Admitting) Constitutional The patient is awake, alert and oriented 3, well developed and well nourished, normocephalic and atraumatic, lying in bed and in no acute distress. HEENT--PERRL, EOMI, mucous membranes and oropharynx mildly dry Neck--supple. No JVD. No bruits. Thyroid normal, trachea midline, no adenopathy. Heart--normal S1 and S2. No murmurs, rubs or gallops. Lungs--clear bilaterally, no respiratory distress, no accessory muscle use. Abdomen--normal bowel sounds and soft. Extremities--no cyanosis or clubbing. No edema. Dermatologic--normal skin turgor, normal color, no abnormal lymph nodes, no rash. Neurologic--cranial nerves II through XII grossly intact. Rheumatologic--normal range of motion. Psychiatric--normal affect. Discharge Data Consultations 09/19/24 14:08 ED Decision to Admit Stat 09/19/24 15:04 Consult Infectious Diseases Routine 09/20/24 08:10 Consult Nephrology Routine Hospital Course (1) Meningitis: Patient presented to the [facility] with Acute onset of fever (105 F), confusion, vomiting, and altered mental status the evening of 09/18 into the morning of 09/19 A presumptive diagnosis of meningitis was made after LP, which showed elevated protein and WBC and normal glucose Initially started empirically on Vancomycin + Rocephin + Unasyn + acyclovir Biofire did not suggest staph or strep pneumo and Vanc has been discontinued Tickborne panel ordered, pending PCR negative for HSV/VZV/Listeria monocytogenes,Neisseria meningitidis, H. influenzae, E. coli, Streptococcus pneumoniae and Streptococcus agalactiae Brain MRI w/wo is wnl, no acute pathology patient insisted he wanted to go home he agreed to come back to the [facility] if he experiences fever or rigors or neck stiffness He will be discharge on PO Ciprofloxacin 500mg BID for 7 more days (2) Hyponatremia: resolved SIADH hx in the past Nephrology on consult, appreciate recs (3) Altered mental status: Acute encephalopathy is now Resolved patient is now back to normal MRI wnl (4) Leukocytosis: most likely from the steroids Patient is afebrile Plan Disposition:continue to monitor in the [facility] Full code VTE PPx: Lovenox 40 mg SQ q24h Coding Level of Care Code 25776 INP/OBS DISCH >30 MIN Diagnoses Meningitis G03.9 Hyponatremia E87.1 Altered mental status R41.82 Leukocytosis D72.829 Time Spent (min) 35
[2024-09-22 13:43] LABS: Procalcitonin < 0.02 ng/ml (0-0.5)
[2024-09-22 14:09] LABS: Lyme Screen Rflx Confirmation Negative (Negative)
== END 2024-09-22 12:06 | disposition home or self-care (01) | DRG 95 ==
LOC: ED 10:48 → 4W 15:03 → SUATTDRO 15:03 → 4W 16:00